=== PATIENT | female | born 1945 | race Native Hawaiian/Other Pacific Islander ===

== ENCOUNTER 2016-10-28 13:10 | Inpatient (IN) | payer MEDICARE, OTHER ==
[2016-10-28 13:10] VITALS: BMI 28.6
--- NOTE | 2016-10-28 13:38 | C.PDOC ---
History Of Present Illness Patient is a 70 year old female with PMH DM, HTN and hypercholesterolemia who presents to the ED with a complaint of pain to the right thigh and leg since tripping and falling 2 days ago at home. Daughter at bedside was not aware and brought her in today. The patient has not been able to walk without pain. Patient denies any fever or chills. Time Seen by Provider: 10/28/16 13:29 Chief Complaint (Nursing): Lower Extremity Problem/Injury History Per: Family History/Exam Limitations: language barrier Onset/Duration Of Symptoms: Days (2 days ago. ) Current Symptoms Are (Timing): Still Present Recent travel outside of the [place]: No Past Medical History Reviewed: Historical Data, Nursing Documentation, Vital Signs Vital Signs: Last Vital Signs Temp 97.9 F 10/28/16 14:30 Pulse 75 10/28/16 14:30 Resp 18 10/28/16 14:30 BP 170/98 H 10/28/16 14:30 Pulse Ox 96 10/28/16 15:33 - Medical History PMH: HTN, Hypercholesterolemia - [facility] Procedures ANGIOPLASTY OF OTHER NON-CORONARY VESSEL(S) (07/09/14) ATHERECTOMY OF OTHER NON-CORONARY VESSEL(S) (07/09/14) CONTRAST AORTOGRAM (07/09/14) CONTRAST ARTERIOGRAM-LEG (07/09/14) PROCEDURE ON SINGLE VESSEL (07/09/14) Family History: States: No Known Family Hx - Social History Hx Alcohol Use: No Hx Substance Use: No Review Of Systems Constitutional: Negative for: Fever, Chills Cardiovascular: Negative for: Chest Pain Respiratory: Negative for: Shortness of Breath Gastrointestinal: Negative for: Abdominal Pain Genitourinary: Negative for: Incontinence Musculoskeletal: Positive for: Leg Pain (right). Negative for: Back Pain Neurological: Negative for: Headache Physical Exam - Physical Exam Appears: Non-toxic, No Acute Distress Skin: Normal Color, Warm, Dry, Ecchymosis (ecchymosis to R anterior medial thigh. ) Head: Atraumatic, Normacephalic Eye(s): bilateral: Normal Inspection, EOMI Nose: Normal Oral Mucosa: Moist Neck: Normal ROM Chest: Symmetrical Cardiovascular: Rhythm Regular, No Murmur Respiratory: Normal Breath Sounds, No Wheezing Back: Normal Inspection, No Vertebral Tenderness Extremity: No Normal ROM (unable to move right leg secondary to pain), Tenderness (right anterior and medial thigh, hip tender, tib/fib tender. patient grimace with palpation to whole leg), No Deformity, No Swelling Pulses: Left Dorsalis Pedis: Normal, Right Dorsalis Pedis: Normal Neurological/Psych: Oriented x3, Normal Speech, Other (no focal deficits. ) Gait: Unable To Assess ED Course And Treatment - Laboratory Results Result Diagrams: 10/28/16 14:51 10/28/16 14:51 Lab Interpretation: No Acute Changes ECG: Interpreted By Me, Viewed By Me ECG Rhythm: Sinus Rhythm Rate From EC O2 Sat by Pulse Oximetry: 96 (Room air) Pulse Ox Interpretation: Normal - Other Rad Femur/Tibia/Fibula XR X-Ray: Interpreted by Me, Viewed By Me Interpretation: Intertrochanteric fracture of the right proximal femur. - Physician Consult Information Time Consulting Physician Contacted: 14:33 Physician Contacted: Johny Osborne III Outcome Of Conversation: admission Monday 10/30. Medical Decision Making Medical Decision Making: Impression: leg pain s.p fall Plan: Femur/Tibia/Fibula XRay ordered, blood work, CT hip, EKG, and UA ordered; Morphine and IV fluids administered. Progress: Xray reviewed by me showing fracture to proximal femoral neck. Radiology reports Intertrochanteric fracture of the right proximal femur. [address] Osborne who wants CT scan and pre-op labs, will take to OR on Monday 10/[address] Andrae De Santiago and discussed case will come to ED and place orders for admission. Disposition - Disposition Disposition: HOSPITALIZED Disposition Time: 15:11 Condition: STABLE - POA Present On Arrival: None - Clinical Impression Clinical Impression: Hip fracture, right - Scribe Statement The provider has reviewed the documentation as recorded by the Scribe Padmaja Barros All medical record entries made by the Scribe were at my direction and personally dictated by me. I have reviewed the chart and agree that the record accurately reflects my personal performance of the history, physical exam, medical decision making, and the department course for this patient. I have also personally directed, reviewed, and agree with the discharge instructions and disposition. Decision To Admit - Pt Status Changed To: Hospital Disposition Of: Inpatient - Admit Certification Admit to Inpatient:: After my assessment, the patient will require hospitalization for at least two midnights. This is because of the severity of symptoms shown, intensity of services needed, and/or the medical risk in this patient being treated as an outpatient. - InPatient: Physician Admission Certification: I certify that this patient requires 2 or more midnights of care for the following reason:: Patient with acute hip fracture, unable to ambulate, needs ortho consult and surgical intervention - . Bed Request Type: Regular Admitting Physician: Avni De Santiago Patient Diagnosis: Hip fracture, right
[2016-10-28] MEDS ORDERED: Sodium Chloride 0.9% 1,000 ML IV SCH (14:30)
[2016-10-28] MEDS ORDERED: Sodium Chloride 0.9% 1,000 ML ONE (14:52)
--- NOTE | 2016-10-28 14:55 | RAD ---
Right femur four views History: Trip and fall. Comparison: None available. Findings: Transverse oblique lucency through the base of the right proximal femur in the intertrochanteric region suggestive for a mildly displaced intertrochanteric fracture. Severe degenerative changes at the right hip joint space with subchondral sclerosis and joint space narrowing. Vascular calcifications. Moderate degenerative changes at the right knee joint space with subchondral sclerosis. Mild patellofemoral compartment joint space narrowing with subchondral sclerosis. Enthesopathic change at the superior bony patella. Vascular calcifications. Impression: Intertrochanteric fracture of the right proximal femur.
--- NOTE | 2016-10-28 14:56 | RAD ---
Right tibia and fibula two views History: Injury. Comparison: None available. Findings: Moderate degenerative changes with joint space narrowing at the femorotibial joint space. No evidence of acute displaced fracture or dislocation of the visualized tibia and fibula. Vascular calcifications. Enthesopathic change at the superior bony patella. Prominent narrowing at the tibiotalar joint space with subchondral sclerosis. Patchy osteopenia particularly of the fibula. Impression: Degenerative changes. If pain persists, consider MRI.
--- NOTE | 2016-10-28 14:58 | RAD ---
Chest x-ray single frontal view History: Fall. Comparison: None available. Findings: Biapical pleural thickening with upper lobe granulomatous changes. Mild venous congestion. Heart size within normal limits. Calcification at the aortic knob. Degenerative changes in the spine with paravertebral osteophytes. Degenerative changes in the bilateral shoulders with prominent joint space narrowing. Mild productive change at the left proximal humerus. Correlation. Impression : Biapical pleural thickening with upper lobe granulomatous changes. Mild venous congestion. Heart size within normal limits. Calcification at the aortic knob. Degenerative changes in the spine with paravertebral osteophytes. Degenerative changes in the bilateral shoulders with prominent joint space narrowing. Mild productive change at the left proximal humerus. Correlation.
[2016-10-28 15:02] LABS: BASO # 0.1 K/uL (0.0-0.2); BASO % 0.6 % (0.0-2.0); EOS # 0.2 K/uL (0.0-0.7); EOS % 1.7 % (0.0-4.0); HEMATOCRIT 41.2 % (34.0-47.0); LYMPH # 1.9 K/uL (1.0-4.3); MEAN CELL VOLUME 90.3 fL (81.0-99.0); MEAN CORPUSCULAR HEMOGLOBIN 30.6 pg (27.0-31.0); MEAN CORPUSCULAR HGB CONC 33.9 g/dL (33.0-37.0); MEAN PLATELET VOLUME 9.9 fL (7.2-11.7); MONO # 0.8 K/uL (0.0-0.8); MONO % 7.6 % (0.0-10.0); RED CELL DISTRIBUTION WIDTH 12.8 % (11.5-14.5); WHITE BLOOD COUNT 10.2 K/uL (4.8-10.8)
--- NOTE | 2016-10-28 15:04 | CP.PCM.HP ---
History of Present Illness - History of Present Illness History of Present Illness: CC: "I fell" 70 yea old [place] female with PMHx of DM, HTN, high cholesterol presents after fall at home last night. Patient fell last night around 7:30pm last night. She was on the phone with her daughter when she fell on a step. Patient was able to get up and has since ambulated with a lot of pain. Pain on arrival was reportedly 10 out of 10. Now 8 out 10 after pain medications given in the ED. Patient denies LOC, hitting her head, dizziness. No numbness or tingling. She denies palpitations, headache, SOB. Admits to similar mechanical fall in January 2016. However, she had not fractures that time. Patient reports chest pain that is "chronic". As per daughters at bedside, patient follows with [facility] Dr. Clark as outpatient. PMHx: DM2, HTN, high cholesterol, CAD? Medications: Plavix 75 mg PO daily, Metformin 500 mg PO BID, Crestor 40 mg PO HS , Ramipril 5 mg PO daily, Invokana 300 mg PO daily (confirmed with patient's pharmacy: [facility] [address] in [place]). Allergies: none Family Hx: Mother and Father both with [place] in their 70's. Surgry Hx: none Social Hx: admits to smoking 1 cigaret per day for "years", quit 1 year ago. Denies alcohol and illicit drug use. PMD: Dr. Epperson Cardio: Dr. Clark Health Proxy:daughter Stacey Ospina [phone]. Present on Admission - Present on Admission Any Indicators Present on Admission: No Review of Systems - Constitutional Constitutional: absent: Chills, Fever - EENT Eyes: absent: Blurred Vision, Change in Vision, Sees Flashes Ears: absent: Tinnitus, Dizziness - Cardiovascular Cardiovascular: absent: Chest Pain, Dyspnea - Respiratory Respiratory: absent: Cough, Dyspnea - Gastrointestinal Gastrointestinal: absent: Abdominal Pain, Constipation, Diarrhea, Nausea, Vomiting - Genitourinary Genitourinary: absent: Difficulty Urinating, Dysuria - Musculoskeletal Musculoskeletal: Abnormal Gait (pain with ambulation). absent: Back Pain, Numbness, Tingling Additional comments: +right hip pain - Neurological Neurological: absent: Disequilibrium, Dizziness, Numbness, Lack of Coordination , Tingling, Weakness - Psychiatric Psychiatric: absent: Anxiety - Endocrine Endocrine: absent: Fatigue, Palpitations - Hematologic/Lymphatic Hematologic: absent: Easy Bleeding, Easy Bruising Past Patient History - Past Social History Smoking Status: Former Smoker - CARDIAC Hx Hypercholesterolemia: Yes Hx Hypertension: Yes - NEUROLOGICAL Hx Paralysis: No - ENDOCRINE/METABOLIC Hx Diabetes Mellitus Type 2: Yes - HEMATOLOGICAL/ONCOLOGICAL Hx Blood Transfusions: No Hx Blood Transfusion Reaction: No - MUSCULOSKELETAL/RHEUMATOLOGICAL Hx Musculoskeletal Disorders: Yes Hx Falls: Yes - PSYCHIATRIC Hx Substance Use: No - SURGICAL HISTORY Hx Surgeries: Yes - ANESTHESIA Hx Anesthesia: No Meds Allergies/Adverse Reactions: Allergies Allergy/AdvReac Type Severity Reaction Status Date / Time No Known Allergies Allergy Verified 10/28/16 13:16 Physical Exam - Constitutional Appears: No Acute Distress - Head Exam Head Exam: ATRAUMATIC, NORMAL INSPECTION, NORMOCEPHALIC - Eye Exam Eye Exam: EOMI, Normal appearance Pupil Exam: NORMAL ACCOMODATION, PERRL - ENT Exam ENT Exam: Mucous Membranes Moist, Normal Exam - Neck Exam Neck exam: Positive for: Full Rom, Normal Inspection - Respiratory Exam Respiratory Exam: Clear to Auscultation Bilateral, NORMAL BREATHING PATTERN - Cardiovascular Exam Cardiovascular Exam: REGULAR RHYTHM, +S1, +S2 - GI/Abdominal Exam GI & Abdominal Exam: Normal Bowel Sounds, Soft. absent: Distended, Tenderness - Extremities Exam Extremities exam: Positive for: normal inspection, tenderness (right hip down to right outer leg ). Negative for: full ROM - Back Exam Back exam: NORMAL INSPECTION - Neurological Exam Neurological exam: Alert, Oriented x3 - Psychiatric Exam Psychiatric exam: Normal Affect, Normal Mood - Skin Skin Exam: Dry, Normal Color, Warm Results - Vital Signs Recent Vital Signs: Last Vital Signs Temp 97.9 F 10/28/16 14:30 Pulse 75 10/28/16 14:30 Resp 18 10/28/16 14:30 BP 170/98 H 10/28/16 14:30 Pulse Ox 96 10/28/16 14:51 - Labs Result Diagrams: 10/28/16 14:51 10/28/16 14:51 Assessment & Plan (1) Hip fracture, right Assessment and Plan: Ortho consult placed- Dr. Osborne- help appreciated. Surgery planning Sunday10/30/16. NPO after midnight on 10/29/16 into 10/30/16. Patient will need cardiac clearance prior to surgery * Morphine 2 mg IVP Q4H PRN for moderate pain * Morphine 4 mg IVP Q4H PRN for severe pain Imaging: Hip CT 10/28/16 shows Intertrochanteric fracture seen through the right proximal femur at the base of the right femoral neck. Distraction at the fracture site. Additional fracture deformity through base of the right greater trochanter with comminution at that level. Heterotopic bone formation at the level of the greater trochanter. Tib/Fib Xray R 10/28/16 shows no evidence of acute displaced fracture or dislocation of the visualized tibia and fibula. Status: Acute (2) Status post fall Assessment and Plan: As per patient and daughter, patient did not hit her head. No evidence of head trauma on physical exam. No CT head at this time. A/P for right hip fractures as above. Status: Acute (3) Chest pain Assessment and Plan: Patient with unclear cardiac history. Patient takes Plavic 75 mg PO daily and Crestor 40 mg PO daily at home. EKG on admission shows NSR 72 bpm. ENOCH negative X1. F/U ENOCH Q6H X2 F/U EKG Q6H X2. * Crestor 40 mg PO HS started * Hold Plavix in anticipation of planned surgery * Morphine IVP Q4H PRN for pain Oxide Furnace Tender Dr. Valladares consulted for cardiac clearance- help appreciated f/u 2D ECHO f/u Hgb A1C,TSH, FLP in the AM Status: Acute (4) Renal insufficiency Assessment and Plan: BUN 24, Cr 0.5. GFR>60. Patient given IVF in the ED. BP became elevated. Will hold fluids for now given elevated BP. Nursing communication placed to encourage PO intake. Will restart home dose of Raghavendra inhibitor as patient's Cr is not above 1.6. f/u CMP in the AM Status: Acute (5) HTN (hypertension) Assessment and Plan: Will restart home dose of Raghavendra inhibitor as patient's Cr is not above 1.6. Ramipril not on formulary. * Vasotec 10 mg PO daily Monitor BP and add medications as needed. Status: Acute (6) Diabetes Assessment and Plan: Random glucose 148. * Start low dose insulin sliding scale * Hold home med Metformin 500mg PO daily for now * Hold home med Invokana 300 mg PO daily for now Accuchecks ACHS Consistent Carb/Heart Healthy Diet f/u Hgb A1C in the AM Status: Acute (7) Prophylactic measure Assessment and Plan: Heparin 5000 SC Q8H SCD left LE Pepcid 20 mg PO BID Bed rest for now with fall risk precautions Status: Acute
[2016-10-28 15:10] LABS: CHLORIDE 101 mmol/L (98-107)
[2016-10-28 15:11] LABS: POTASSIUM 3.8 mmol/L (3.6-5.2); SODIUM 141 mmol/L (132-148)
[2016-10-28 15:13] LABS: ALB/GLOB RATIO 1.2 (1.0-2.1); ALKALINE PHOSPHATASE 174 U/L (38-126); AST/SGOT 18 U/L (14-36); BILIRUBIN,TOTAL 0.9 mg/dL (0.2-1.3); BLOOD UREA NITROGEN 24 mg/dL (7-17); CARBON DIOXIDE 29 mmol/L (22-30); GFR AFRICAN-AMERICAN > 60; GLUCOSE,RANDOM 148 mg/dL (65-105); TOTAL PROTEIN 7.8 g/dL (6.3-8.3)
[2016-10-28 15:14] LABS: ALT/SGPT 18 U/L (9-52); CALCIUM 9.3 mg/dl (8.6-10.4)
[2016-10-28 15:15] LABS: INR 1.2
--- NOTE | 2016-10-28 15:36 | CT ---
CT right hip History: Fracture. Comparison: None available. Technique: Multiple contiguous axial images were performed through the right hip without the use of intravenous contrast. Subsequently, sagittal and coronal reformatted images were obtained. Findings: Intertrochanteric fracture seen through the right proximal femur at the base of the right femoral neck. Distraction at the fracture site. Additional fracture deformity through base of the right greater trochanter with comminution at that level. Heterotopic bone formation at the level of the greater trochanter. Femoral head appears located. Moderate degenerative changes of the right hip joint space with subchondral sclerosis and osteophytosis. Moderate right hip joint effusion. Sclerosis at the right SI joint space. Productive change off the right iliac crest laterally. Osteitis pubis. Calcified fibroid uterus. Distended urinary bladder. Fatty atrophy of the right-sided gluteus and posterior right thigh musculature. Impression: Intertrochanteric fracture through the right proximal femur as described above. Additional fracture deformity within the adjacent right greater trochanter.
[2016-10-28 16:05] LABS: RBC URINE < 1 /hpf (0-3); URINE BILIRUBIN NEGATIVE (NEGATIVE); URINE BLOOD NEGATIVE (NEGATIVE); URINE COLOR Straw (YELLOW); URINE GLUCOSE (UA) 3+ mg/dL (Normal); URINE KETONE NEGATIVE (NEGATIVE); URINE LEUKOCYTE ESTERASE NEG Leu/uL (Negative); URINE PROTEIN NEGATIVE (NEGATIVE); URINE UROBILINOGEN NORMAL mg/dL (0.2-1.0); WBC URINE < 1 /hpf (0-5)
[2016-10-28] MEDS: (Novolin R) Insulin Human Regular 100 units/ml vial SC SCH ×2 (18:54→21:41)
[2016-10-29 06:11] LABS: BASO # 0.1 K/uL (0.0-0.2); BASO % 0.8 % (0.0-2.0); EOS # 0.2 K/uL (0.0-0.7); EOS % 2.6 % (0.0-4.0); HEMATOCRIT 40.1 % (34.0-47.0); LYMPH # 1.8 K/uL (1.0-4.3); LYMPH % 26.7 % (20.0-40.0); MEAN CELL VOLUME 90.6 fL (81.0-99.0); MEAN CORPUSCULAR HEMOGLOBIN 30.5 pg (27.0-31.0); MEAN CORPUSCULAR HGB CONC 33.7 g/dL (33.0-37.0); MEAN PLATELET VOLUME 9.7 fL (7.2-11.7); MONO # 0.5 K/uL (0.0-0.8); MONO % 7.5 % (0.0-10.0); NRBC % 0.1 % (0.0-2.0); RED CELL DISTRIBUTION WIDTH 12.6 % (11.5-14.5); WHITE BLOOD COUNT 6.7 K/uL (4.8-10.8)
[2016-10-29 06:30] LABS: ALB/GLOB RATIO 1.2 (1.0-2.1); ALKALINE PHOSPHATASE 152 U/L (38-126); ALT/SGPT 14 U/L (9-52); AST/SGOT 15 U/L (14-36); BLOOD UREA NITROGEN 19 mg/dL (7-17); CALCIUM 9.1 mg/dl (8.6-10.4); CARBON DIOXIDE 27 mmol/L (22-30); CHLORIDE 102 mmol/L (98-107); CHOLESTEROL 158 mg/dL (0-199); GFR AFRICAN-AMERICAN > 60; GLUCOSE,RANDOM 124 mg/dL (65-105); MAGNESIUM 1.8 mg/dL (1.6-2.3); PHOSPHOROUS 3.8 mg/dL (2.5-4.5); POTASSIUM 3.8 mmol/L (3.6-5.2); SODIUM 140 mmol/L (132-148); TOTAL PROTEIN 6.6 g/dL (6.3-8.3)
[2016-10-29 06:52] LABS: THYROID STIMULATING HORMONE 0.44 mIU/L (0.46-4.68)
[2016-10-29] MEDS: (Novolin R) Insulin Human Regular 100 units/ml vial SC SCH ×3 (07:30→21:53)
[2016-10-29] MEDS: Morphine 4 MG/ML VIAL IVP PRN ×2 (09:49→18:21)
--- NOTE | 2016-10-29 10:01 | CP.PCM.PN ---
<Amanda Zarate - Last Filed: 10/29/16 09:56> Subjective - Date & Time of Evaluation Date of Evaluation: 10/29/16 Time of Evaluation: 08:00 - Subjective Subjective: PGY 3 Medicine Progress Note- Dr. Felisha De Santiago's Service: Patient seen and examined at bedside this AM. Patient reports pain this AM. She reports no pain medication since last night. She denies fevers, or chills. She has been able to use the bathroom without difficulty. No acute event overnight. Objective - Vital Signs/Intake and Output Vital Signs (last 24 hours): Temp Pulse Resp BP Pulse Ox 98.0 F 68 20 139/79 97 10/29/16 07:20 10/29/16 07:20 10/29/16 07:20 10/29/16 09:49 10/29/16 07:20 - Medications Medications: Current Medications Enalapril Maleate (Vasotec) 10 mg PO DAILY [facility] Last Admin: 10/29/16 09:49 Dose: 10 mg Famotidine (Pepcid) 20 mg PO BID [facility] Last Admin: 10/29/16 09:49 Dose: 20 mg Heparin Sodium (Porcine) (Heparin) 5,000 units SC Q8 [facility] Stop: 10/29/16 22:00 Last Admin: 10/29/16 06:03 Dose: 5,000 units Influenza Virus Vaccine (Afluria) 45 mcg IM .ONCE ONE Stop: 11/01/16 10:01 Insulin Human Regular (Novolin R) 0 unit SC ACHS [facility] PRN Reason: Protocol Last Admin: 10/29/16 07:30 Dose: Not Given Morphine Sulfate (Morphine) 2 mg IVP Q4H PRN PRN Reason: Pain, moderate (4-7) Last Admin: 10/29/16 05:47 Dose: 2 mg Morphine Sulfate (Morphine) 4 mg IVP Q4 PRN PRN Reason: Pain, severe (8-10) Last Admin: 10/29/16 09:49 Dose: 4 mg Rosuvastatin Calcium (Crestor) 40 mg PO HS [facility] Last Admin: 10/28/16 21:10 Dose: 40 mg - Labs Labs: 10/29/16 06:06 10/29/16 06:06 PT 13.1 SECONDS (9.7-12.2) H 10/28/16 14:51 INR 1.2 10/28/16 14:51 APTT 34 SECONDS (21-34) 10/28/16 14:51 - Constitutional Appears: No Acute Distress - Head Exam Head Exam: NORMAL INSPECTION, NORMOCEPHALIC - Eye Exam Eye Exam: EOMI - ENT Exam ENT Exam: Mucous Membranes Moist, Normal Exam - Respiratory Exam Respiratory Exam: Clear to Ausculation Bilateral, NORMAL BREATHING PATTERN - Cardiovascular Exam Cardiovascular Exam: REGULAR RHYTHM, +S1, +S2 - GI/Abdominal Exam GI & Abdominal Exam: Soft. absent: Distended, Tenderness - Extremities Exam Extremities Exam: Normal Inspection, Tenderness (over right hip and outer thigh) . absent: Full ROM, Pedal Edema - Neurological Exam Neurological Exam: Alert, Awake, Oriented x3 - Psychiatric Exam Psychiatric exam: Normal Affect, Normal Mood - Skin Skin Exam: Dry, Normal Color, Warm Assessment and Plan - Assessment and Plan (Free Text) Assessment: (1) Hip fracture, right Assessment and Plan: Ortho consult placed- Dr. Osborne- help appreciated. Surgery planning Sunday10/30/16. NPO after midnight on 10/29/16 into 10/30/16. Patient will need cardiac clearance prior to surgery * Morphine 2 mg IVP Q4H PRN for moderate pain * Morphine 4 mg IVP Q4H PRN for severe pain Imaging: Hip CT 10/28/16 shows Intertrochanteric fracture seen through the right proximal femur at the base of the right femoral neck. Distraction at the fracture site. Additional fracture deformity through base of the right greater trochanter with comminution at that level. Heterotopic bone formation at the level of the greater trochanter. Tib/Fib Xray R 10/28/16 shows no evidence of acute displaced fracture or dislocation of the visualized tibia and fibula. Status: Acute (2) Status post fall Assessment and Plan: As per patient and daughter, patient did not hit her head. No evidence of head trauma on physical exam. No CT head at this time. A/P for right hip fractures as above. Status: Acute (3) Chest pain Assessment and Plan: Resolved. Patient with unclear cardiac history. Patient takes Plavix 75 mg PO daily and Crestor 40 mg PO daily at home. EKG on admission shows NSR 72 bpm. ENOCH negative X3. * Crestor 40 mg PO HS started * Hold Plavix in anticipation of planned surgery * Morphine IVP Q4H PRN for pain Building Maintenance Technician Dr. Valladares consulted for cardiac clearance- help appreciated FLP within normal limits TSH low. Will recheck thyroid studies in the AM. f/u 2D ECHO f/u Hgb A1C Status: Acute (4) Renal insufficiency Assessment and Plan: BUN 19, Cr 0.5 this AM. GFR>60. Patient given IVF in the ED. BP became elevated. Will hold fluids for now given elevated BP. Nursing communication placed to encourage PO intake. Will restart home dose of Raghavendra inhibitor as patient's Cr is not above 1.6. f/u CMP in the AM Status: Acute (5) HTN (hypertension) Assessment and Plan: Will restart home dose of Raghavendra inhibitor as patient's Cr is not above 1.6. Ramipril not on formulary. * Vasotec 10 mg PO daily Monitor BP and add medications as needed. Status: Acute (6) Diabetes Assessment and Plan: Random glucose 148. * Start low dose insulin sliding scale * Hold home med Metformin 500mg PO daily for now * Hold home med Invokana 300 mg PO daily for now Accuchecks ACHS Consistent Carb/Heart Healthy Diet f/u Hgb A1C in the AM Status: Acute (7) PVD Assessment and Plan: Patient had balloon angioplasty of right SFA with Dr. Coto in 2014. Patient takes Plavix 75 mg PO daily and Crestor 40 mg PO daily at home. Prophylactic measure Assessment and Plan: Heparin 5000 SC Q8H SCD left LE Pepcid 20 mg PO BID Bed rest for now with fall risk precautions Status: Acute <Avni De Santiago - Last Filed: 10/29/16 21:10> Objective - Vital Signs/Intake and Output Vital Signs (last 24 hours): Temp Pulse Resp BP Pulse Ox 98 F 72 20 122/68 96 10/29/16 16:43 10/29/16 16:43 10/29/16 16:43 10/29/16 16:43 10/29/16 16:43 - Medications Medications: Current Medications Enalapril Maleate (Vasotec) 10 mg PO DAILY [facility] Last Admin: 10/29/16 09:49 Dose: 10 mg Famotidine (Pepcid) 20 mg PO BID [facility] Last Admin: 10/29/16 18:18 Dose: 20 mg Heparin Sodium (Porcine) (Heparin) 5,000 units SC Q8 [facility] Stop: 10/29/16 22:00 Last Admin: 10/29/16 06:03 Dose: 5,000 units Influenza Virus Vaccine (Afluria) 45 mcg IM .ONCE ONE Stop: 11/01/16 10:01 Insulin Human Regular (Novolin R) 0 unit SC ACHS [facility] PRN Reason: Protocol Last Admin: 10/29/16 17:30 Dose: 1 unit Morphine Sulfate (Morphine) 2 mg IVP Q4H PRN PRN Reason: Pain, moderate (4-7) Last Admin: 10/29/16 05:47 Dose: 2 mg Morphine Sulfate (Morphine) 4 mg IVP Q4 PRN PRN Reason: Pain, severe (8-10) Last Admin: 10/29/16 18:21 Dose: 4 mg Rosuvastatin Calcium (Crestor) 40 mg PO HS [facility] Last Admin: 10/28/16 21:10 Dose: 40 mg - Labs Labs: 10/29/16 06:06 10/29/16 06:06 PT 13.1 SECONDS (9.7-12.2) H 10/28/16 14:51 INR 1.2 10/28/16 14:51 APTT 34 SECONDS (21-34) 10/28/16 14:51 Attending/Attestation - Attestation I have personally seen and examined this patient.: Yes I have fully participated in the care of the patient.: Yes I have reviewed all pertinent clinical information, including history, physical exam and plan: Yes Notes (Text): 10/29/16 21:09 Patient was seen and examined at 7:45 AM 10/29/16. She is cleared from [facility] for planned surgery with Dr. Osborne's Team on 10/30/16. Avni De Santiago D.O.
--- NOTE | 2016-10-29 12:04 | CP.PCM.CON ---
History of Present Illness - History of Present Illness History of Present Illness: ID: 70 yo female CC: pain deformity and shortening R lower extremity, pain at R hip HPI: 70 yo female presents with r hip pain and inability to ambulate after a fall on SUNDAY pT PRESENTED TO er AT [facility] YESTERDAY. pT STABILIZED/ MEDICAL,CARDIOLOGIC clearance obtained. Informed consent obtained from pt with her daughters in attendance,pros cons risks and benefits of THR discussed. Concept of ORIF discussed. concept of benign neglect discussed. Daughters tell me she had severe and modeaste to seevre DJD R hip prior fall. pt had r hip pain and rstricted ROM prior to her fall, secondary to O/A R hip.. On Xray and CT, pt has evidecne for complete joint space compromise and evidence for severe DJD R hip.. Pt for THR, as per pts insistence, thru her daughters, who were culturally competent translators. pros, cons risks and befits discussed at length No poromises/guarantees Past Patient History - Past Social History Smoking Status: Former Smoker - CARDIAC Hx Hypercholesterolemia: Yes Hx Hypertension: Yes - NEUROLOGICAL Hx Paralysis: No - ENDOCRINE/METABOLIC Hx Diabetes Mellitus Type 2: Yes - HEMATOLOGICAL/ONCOLOGICAL Hx Blood Transfusions: No Hx Blood Transfusion Reaction: No - MUSCULOSKELETAL/RHEUMATOLOGICAL Hx Musculoskeletal Disorders: Yes Hx Falls: Yes - PSYCHIATRIC Hx Substance Use: No - SURGICAL HISTORY Hx Surgeries: Yes - ANESTHESIA Hx Anesthesia: No Meds Allergies/Adverse Reactions: Allergies Allergy/AdvReac Type Severity Reaction Status Date / Time No Known Allergies Allergy Verified 10/28/16 13:16 - Medications Medications: Current Medications Enalapril Maleate (Vasotec) 10 mg PO DAILY [facility] Last Admin: 10/29/16 09:49 Dose: 10 mg Famotidine (Pepcid) 20 mg PO BID [facility] Last Admin: 10/29/16 09:49 Dose: 20 mg Heparin Sodium (Porcine) (Heparin) 5,000 units SC Q8 [facility] Stop: 10/29/16 22:00 Last Admin: 10/29/16 06:03 Dose: 5,000 units Influenza Virus Vaccine (Afluria) 45 mcg IM .ONCE ONE Stop: 11/01/16 10:01 Insulin Human Regular (Novolin R) 0 unit SC ACHS [facility] PRN Reason: Protocol Last Admin: 10/29/16 07:30 Dose: Not Given Morphine Sulfate (Morphine) 2 mg IVP Q4H PRN PRN Reason: Pain, moderate (4-7) Last Admin: 10/29/16 05:47 Dose: 2 mg Morphine Sulfate (Morphine) 4 mg IVP Q4 PRN PRN Reason: Pain, severe (8-10) Last Admin: 10/29/16 09:49 Dose: 4 mg Rosuvastatin Calcium (Crestor) 40 mg PO HS [facility] Last Admin: 10/28/16 21:10 Dose: 40 mg Physical Exam - Additional Findings Additional findings: Exam systemic- wnl Musculoskekltal stance/gait- deferred pt with shortening and ext rotation R lower extremity N/V intact Results - Vital Signs Recent Vital Signs: Last Vital Signs Temp 98.0 F 10/29/16 07:20 Pulse 68 10/29/16 07:20 Resp 20 10/29/16 07:20 BP 139/79 10/29/16 09:49 Pulse Ox 97 10/29/16 07:20 - Labs Result Diagrams: 10/29/16 06:06 10/29/16 06:06 Labs: Laboratory Results - last 24 hr 10/28/16 10/28/16 10/28/16 14:51 14:51 14:51 WBC 10.2 RBC 4.57 Hgb 14.0 Hct 41.2 MCV 90.3 MCH 30.6 MCHC 33.9 RDW 12.8 Plt Count 255 MPV 9.9 Neut % (Auto) 71.1 Lymph % (Auto) 19.0 L [place] % (Auto) 7.6 Eos % (Auto) 1.7 Baso % (Auto) 0.6 Neut # 7.3 H Lymph # 1.9 Mathews # 0.8 Eos # 0.2 Baso # 0.1 PT 13.1 H INR 1.2 APTT 34 Sodium 141 Potassium 3.8 Chloride 101 Carbon Dioxide 29 Anion Gap 15 BUN 24 H Creatinine 0.5 L Est GFR ( Amer) > 60 Est GFR (Non-Af Amer) > 60 POC Glucose (mg/dL) Random Glucose 148 H Calcium 9.3 Phosphorus Magnesium Total Bilirubin 0.9 AST 18 ALT 18 Alkaline Phosphatase 174 H Total Creatine Kinase CK-MB (Mass) Troponin I, Quant Total Protein 7.8 Albumin 4.2 Globulin 3.6 Albumin/Globulin Ratio 1.2 Triglycerides Cholesterol LDL Cholesterol Direct HDL Cholesterol TSH 3rd Generation Urine Color Urine Clarity Urine pH Ur Specific [place] Urine Protein Urine Glucose (UA) Urine Ketones Urine Blood Urine Nitrate Urine Bilirubin Urine Urobilinogen Ur Leukocyte Esterase Urine WBC (Auto) Urine RBC (Auto) Ur Squamous Epith Cells Blood Type Antibody Screen 10/28/16 10/28/16 10/28/16 14:51 15:53 16:28 WBC RBC Hgb Hct MCV MCH MCHC RDW Plt Count MPV Neut % (Auto) Lymph % (Auto) [place] % (Auto) Eos % (Auto) Baso % (Auto) Neut # Lymph # [place] # Eos # Baso # PT INR APTT Sodium Potassium Chloride Carbon Dioxide Anion Gap BUN Creatinine Est GFR ( Amer) Est GFR (Non-Af Amer) POC Glucose (mg/dL) Random Glucose Calcium Phosphorus Magnesium Total Bilirubin AST ALT Alkaline Phosphatase Total Creatine Kinase 31 CK-MB (Mass) < 0.22 Troponin I, Quant < 0.0120 Total Protein Albumin Globulin Albumin/Globulin Ratio Triglycerides Cholesterol LDL Cholesterol Direct HDL Cholesterol TSH 3rd Generation Urine Color Straw Urine Clarity Clear Urine pH 6.0 Ur Specific [place] 1.009 Urine Protein Negative Urine Glucose (UA) 3+ H Urine Ketones Negative Urine Blood Negative Urine Nitrate Negative Urine Bilirubin Negative Urine Urobilinogen Normal Ur Leukocyte Esterase Neg Urine WBC (Auto) < 1 Urine RBC (Auto) < 1 Ur Squamous Epith Cells < 1 Blood Type B POSITIVE Antibody Screen Negative 10/28/16 10/28/16 10/28/16 16:40 20:54 22:18 WBC RBC Hgb Hct MCV MCH MCHC RDW Plt Count MPV Neut % (Auto) Lymph % (Auto) [place] % (Auto) Eos % (Auto) Baso % (Auto) Neut # Lymph # [place] # Eos # Baso # PT INR APTT Sodium Potassium Chloride Carbon Dioxide Anion Gap BUN Creatinine Est GFR ( Amer) Est GFR (Non-Af Amer) POC Glucose (mg/dL) 175 H 144 H Random Glucose Calcium Phosphorus Magnesium Total Bilirubin AST ALT Alkaline Phosphatase Total Creatine Kinase 27 L CK-MB (Mass) < 0.22 Troponin I, Quant < 0.0120 Total Protein Albumin Globulin Albumin/Globulin Ratio Triglycerides Cholesterol LDL Cholesterol Direct HDL Cholesterol TSH 3rd Generation Urine Color Urine Clarity Urine pH Ur Specific [place] Urine Protein Urine Glucose (UA) Urine Ketones Urine Blood Urine Nitrate Urine Bilirubin Urine Urobilinogen Ur Leukocyte Esterase Urine WBC (Auto) Urine RBC (Auto) Ur Squamous Epith Cells Blood Type Antibody Screen 10/29/16 10/29/16 10/29/16 06:06 06:06 06:06 WBC 6.7 RBC 4.43 Hgb 13.5 Hct 40.1 MCV 90.6 MCH 30.5 MCHC 33.7 RDW 12.6 Plt Count 256 MPV 9.7 Neut % (Auto) 62.4 Lymph % (Auto) 26.7 Mathe[place] % (Auto) 7.5 Eos % (Auto) 2.6 Baso % (Auto) 0.8 Neut # 4.2 Lymph # 1.8 [place] # 0.5 Eos # 0.2 Baso # 0.1 PT INR APTT Sodium 140 Potassium 3.8 Chloride 102 Carbon Dioxide 27 Anion Gap 15 BUN 19 H Creatinine 0.5 L Est GFR ( Amer) > 60 Est GFR (Non-Af Amer) > 60 POC Glucose (mg/dL) Random Glucose 124 H Calcium 9.1 Phosphorus 3.8 Magnesium 1.8 Total Bilirubin 1.0 AST 15 ALT 14 Alkaline Phosphatase 152 H Total Creatine Kinase 28 L CK-MB (Mass) < 0.22 Troponin I, Quant < 0.0120 Total Protein 6.6 Albumin 3.5 Globulin 3.1 Albumin/Globulin Ratio 1.2 Triglycerides 102 Cholesterol 158 LDL Cholesterol Direct 112 HDL Cholesterol 37 TSH 3rd Generation 0.44 L Urine Color Urine Clarity Urine pH Ur Specific [place] Urine Protein Urine Glucose (UA) Urine Ketones Urine Blood Urine Nitrate Urine Bilirubin Urine Urobilinogen Ur Leukocyte Esterase Urine WBC (Auto) Urine RBC (Auto) Ur Squamous Epith Cells Blood Type Antibody Screen 10/29/16 10/29/16 11:10 11:11 WBC RBC Hgb Hct MCV MCH MCHC RDW Plt Count MPV Neut % (Auto) Lymph % (Auto) [place] % (Auto) Eos % (Auto) Baso % (Auto) Neut # Lymph # [place] # Eos # Baso # PT INR APTT Sodium Potassium Chloride Carbon Dioxide Anion Gap BUN Creatinine Est GFR ( Amer) Est GFR (Non-Af Amer) POC Glucose (mg/dL) 139 H Random Glucose Calcium Phosphorus Magnesium Total Bilirubin AST ALT Alkaline Phosphatase Total Creatine Kinase 26 L CK-MB (Mass) Troponin I, Quant Total Protein Albumin Globulin Albumin/Globulin Ratio Triglycerides Cholesterol LDL Cholesterol Direct HDL Cholesterol TSH 3rd Generation Urine Color Urine Clarity Urine pH Ur Specific [place] Urine Protein Urine Glucose (UA) Urine Ketones Urine Blood Urine Nitrate Urine Bilirubin Urine Urobilinogen Ur Leukocyte Esterase Urine WBC (Auto) Urine RBC (Auto) Ur Squamous Epith Cells Blood Type Antibody Screen - Impressions Impression: Imaging planar Xrays- reveal displaced basicervical/intertrochanteric fx R hip ( primarily Basicervical- greater trochanter intact) CT exam: confirmatory, and evidences pereexisting O/A - Assessment & Plan - Assessment and Plan (Free Text) Assessment: A- Basicervical fx R hip/ with precedingprimary Osteoarthritis R hip P- to OR for R THR possibility of mechanical failure, infection, thromboembolic dieases, nerve injury, dislocation; secondary or tertiary surgery a possibility- discussed at length with pt and family
--- NOTE | 2016-10-29 12:51 | CP.PCM.CON ---
History of Present Illness - History of Present Illness History of Present Illness: patient seen/examined. chart reviewed. discussed with family in detail. Patient is at intermediate risk for the planned surgery. However, she is currently asymptomatic and not in CHF. No significant valvular stenosis on examination. There is no cardiovscular contrindication to the planned surgery. Recommend post op troponin and EKG. Recommend Hgb >10. Past Patient History - Past Social History Smoking Status: Former Smoker - CARDIAC Hx Hypercholesterolemia: Yes Hx Hypertension: Yes - NEUROLOGICAL Hx Paralysis: No - ENDOCRINE/METABOLIC Hx Diabetes Mellitus Type 2: Yes - HEMATOLOGICAL/ONCOLOGICAL Hx Blood Transfusions: No Hx Blood Transfusion Reaction: No - MUSCULOSKELETAL/RHEUMATOLOGICAL Hx Musculoskeletal Disorders: Yes Hx Falls: Yes - PSYCHIATRIC Hx Substance Use: No - SURGICAL HISTORY Hx Surgeries: Yes - ANESTHESIA Hx Anesthesia: No Meds Allergies/Adverse Reactions: Allergies Allergy/AdvReac Type Severity Reaction Status Date / Time No Known Allergies Allergy Verified 10/28/16 13:16 - Medications Medications: Current Medications Enalapril Maleate (Vasotec) 10 mg PO DAILY [facility] Last Admin: 10/29/16 09:49 Dose: 10 mg Famotidine (Pepcid) 20 mg PO BID [facility] Last Admin: 10/29/16 09:49 Dose: 20 mg Heparin Sodium (Porcine) (Heparin) 5,000 units SC Q8 [facility] Stop: 10/29/16 22:00 Last Admin: 10/29/16 06:03 Dose: 5,000 units Influenza Virus Vaccine (Afluria) 45 mcg IM .ONCE ONE Stop: 11/01/16 10:01 Insulin Human Regular (Novolin R) 0 unit SC ACHS [facility] PRN Reason: Protocol Last Admin: 10/29/16 07:30 Dose: Not Given Morphine Sulfate (Morphine) 2 mg IVP Q4H PRN PRN Reason: Pain, moderate (4-7) Last Admin: 10/29/16 05:47 Dose: 2 mg Morphine Sulfate (Morphine) 4 mg IVP Q4 PRN PRN Reason: Pain, severe (8-10) Last Admin: 10/29/16 09:49 Dose: 4 mg Rosuvastatin Calcium (Crestor) 40 mg PO HS [facility] Last Admin: 10/28/16 21:10 Dose: 40 mg Results - Vital Signs Recent Vital Signs: Last Vital Signs Temp 98.0 F 10/29/16 07:20 Pulse 68 10/29/16 07:20 Resp 20 10/29/16 07:20 BP 139/79 10/29/16 09:49 Pulse Ox 97 10/29/16 07:20 - Labs Result Diagrams: 10/29/16 06:06 10/29/16 06:06 Labs: Laboratory Results - last 24 hr 10/28/16 10/28/16 10/28/16 14:51 14:51 14:51 WBC 10.2 RBC 4.57 Hgb 14.0 Hct 41.2 MCV 90.3 MCH 30.6 MCHC 33.9 RDW 12.8 Plt Count 255 MPV 9.9 Neut % (Auto) 71.1 Lymph % (Auto) 19.0 L [place] % (Auto) 7.6 Eos % (Auto) 1.7 Baso % (Auto) 0.6 Neut # 7.3 H Lymph # 1.9 [place] # 0.8 Eos # 0.2 Baso # 0.1 PT 13.1 H INR 1.2 APTT 34 Sodium 141 Potassium 3.8 Chloride 101 Carbon Dioxide 29 Anion Gap 15 BUN 24 H Creatinine 0.5 L Est GFR ( Amer) > 60 Est GFR (Non-Af Amer) > 60 POC Glucose (mg/dL) Random Glucose 148 H Calcium 9.3 Phosphorus Magnesium Total Bilirubin 0.9 AST 18 ALT 18 Alkaline Phosphatase 174 H Total Creatine Kinase CK-MB (Mass) Troponin I, Quant Total Protein 7.8 Albumin 4.2 Globulin 3.6 Albumin/Globulin Ratio 1.2 Triglycerides Cholesterol LDL Cholesterol Direct HDL Cholesterol TSH 3rd Generation Urine Color Urine Clarity Urine pH Ur Specific [place] Urine Protein Urine Glucose (UA) Urine Ketones Urine Blood Urine Nitrate Urine Bilirubin Urine Urobilinogen Ur Leukocyte Esterase Urine WBC (Auto) Urine RBC (Auto) Ur Squamous Epith Cells Blood Type Antibody Screen 10/28/16 10/28/16 10/28/16 14:51 15:53 16:28 WBC RBC Hgb Hct MCV MCH MCHC RDW Plt Count MPV Neut % (Auto) Lymph % (Auto) [place] % (Auto) Eos % (Auto) Baso % (Auto) Neut # Lymph # [place] # Eos # Baso # PT INR APTT Sodium Potassium Chloride Carbon Dioxide Anion Gap BUN Creatinine Est GFR ( Amer) Est GFR (Non-Af Amer) POC Glucose (mg/dL) Random Glucose Calcium Phosphorus Magnesium Total Bilirubin AST ALT Alkaline Phosphatase Total Creatine Kinase 31 CK-MB (Mass) < 0.22 Troponin I, Quant < 0.0120 Total Protein Albumin Globulin Albumin/Globulin Ratio Triglycerides Cholesterol LDL Cholesterol Direct HDL Cholesterol TSH 3rd Generation Urine Color Straw Urine Clarity Clear Urine pH 6.0 Ur Specific [place] 1.009 Urine Protein Negative Urine Glucose (UA) 3+ H Urine Ketones Negative Urine Blood Negative Urine Nitrate Negative Urine Bilirubin Negative Urine Urobilinogen Normal Ur Leukocyte Esterase Neg Urine WBC (Auto) < 1 Urine RBC (Auto) < 1 Ur Squamous Epith Cells < 1 Blood Type B POSITIVE Antibody Screen Negative 10/28/16 10/28/16 10/28/16 16:40 20:54 22:18 WBC RBC Hgb Hct MCV MCH MCHC RDW Plt Count MPV Neut % (Auto) Lymph % (Auto) [place] % (Auto) Eos % (Auto) Baso % (Auto) Neut # Lymph # [place] # Eos # Baso # PT INR APTT Sodium Potassium Chloride Carbon Dioxide Anion Gap BUN Creatinine Est GFR ( Amer) Est GFR (Non-Af Amer) POC Glucose (mg/dL) 175 H 144 H Random Glucose Calcium Phosphorus Magnesium Total Bilirubin AST ALT Alkaline Phosphatase Total Creatine Kinase 27 L CK-MB (Mass) < 0.22 Troponin I, Quant < 0.0120 Total Protein Albumin Globulin Albumin/Globulin Ratio Triglycerides Cholesterol LDL Cholesterol Direct HDL Cholesterol TSH 3rd Generation Urine Color Urine Clarity Urine pH Ur Specific [place] Urine Protein Urine Glucose (UA) Urine Ketones Urine Blood Urine Nitrate Urine Bilirubin Urine Urobilinogen Ur Leukocyte Esterase Urine WBC (Auto) Urine RBC (Auto) Ur Squamous Epith Cells Blood Type Antibody Screen 10/29/16 10/29/16 10/29/16 06:06 06:06 06:06 WBC 6.7 RBC 4.43 Hgb 13.5 Hct 40.1 MCV 90.6 MCH 30.5 MCHC 33.7 RDW 12.6 Plt Count 256 MPV 9.7 Neut % (Auto) 62.4 Lymph % (Auto) 26.7 [place] % (Auto) 7.5 Eos % (Auto) 2.6 Baso % (Auto) 0.8 Neut # 4.2 Lymph # 1.8 [place] # 0.5 Eos # 0.2 Baso # 0.1 PT INR APTT Sodium 140 Potassium 3.8 Chloride 102 Carbon Dioxide 27 Anion Gap 15 BUN 19 H Creatinine 0.5 L Est GFR ( Amer) > 60 Est GFR (Non-Af Amer) > 60 POC Glucose (mg/dL) Random Glucose 124 H Calcium 9.1 Phosphorus 3.8 Magnesium 1.8 Total Bilirubin 1.0 AST 15 ALT 14 Alkaline Phosphatase 152 H Total Creatine Kinase 28 L CK-MB (Mass) < 0.22 Troponin I, Quant < 0.0120 Total Protein 6.6 Albumin 3.5 Globulin 3.1 Albumin/Globulin Ratio 1.2 Triglycerides 102 Cholesterol 158 LDL Cholesterol Direct 112 HDL Cholesterol 37 TSH 3rd Generation 0.44 L Urine Color Urine Clarity Urine pH Ur Specific [place] Urine Protein Urine Glucose (UA) Urine Ketones Urine Blood Urine Nitrate Urine Bilirubin Urine Urobilinogen Ur Leukocyte Esterase Urine WBC (Auto) Urine RBC (Auto) Ur Squamous Epith Cells Blood Type Antibody Screen 10/29/16 10/29/16 11:10 11:11 WBC RBC Hgb Hct MCV MCH MCHC RDW Plt Count MPV Neut % (Auto) Lymph % (Auto) [place] % (Auto) Eos % (Auto) Baso % (Auto) Neut # Lymph # [place] # Eos # Baso # PT INR APTT Sodium Potassium Chloride Carbon Dioxide Anion Gap BUN Creatinine Est GFR ( Amer) Est GFR (Non-Af Amer) POC Glucose (mg/dL) 139 H Random Glucose Calcium Phosphorus Magnesium Total Bilirubin AST ALT Alkaline Phosphatase Total Creatine Kinase 26 L CK-MB (Mass) < 0.22 Troponin I, Quant < 0.0120 Total Protein Albumin Globulin Albumin/Globulin Ratio Triglycerides Cholesterol LDL Cholesterol Direct HDL Cholesterol TSH 3rd Generation Urine Color Urine Clarity Urine pH Ur Specific [place] Urine Protein Urine Glucose (UA) Urine Ketones Urine Blood Urine Nitrate Urine Bilirubin Urine Urobilinogen Ur Leukocyte Esterase Urine WBC (Auto) Urine RBC (Auto) Ur Squamous Epith Cells Blood Type Antibody Screen
--- NOTE | 2016-10-29 12:52 | CP.PCM.CON ---
Past Patient History - Past Social History Smoking Status: Former Smoker - CARDIAC Hx Hypercholesterolemia: Yes Hx Hypertension: Yes - NEUROLOGICAL Hx Paralysis: No - ENDOCRINE/METABOLIC Hx Diabetes Mellitus Type 2: Yes - HEMATOLOGICAL/ONCOLOGICAL Hx Blood Transfusions: No Hx Blood Transfusion Reaction: No - MUSCULOSKELETAL/RHEUMATOLOGICAL Hx Musculoskeletal Disorders: Yes Hx Falls: Yes - PSYCHIATRIC Hx Substance Use: No - SURGICAL HISTORY Hx Surgeries: Yes - ANESTHESIA Hx Anesthesia: No Meds Allergies/Adverse Reactions: Allergies Allergy/AdvReac Type Severity Reaction Status Date / Time No Known Allergies Allergy Verified 10/28/16 13:16 - Medications Medications: Current Medications Enalapril Maleate (Vasotec) 10 mg PO DAILY [facility] Last Admin: 10/29/16 09:49 Dose: 10 mg Famotidine (Pepcid) 20 mg PO BID [facility] Last Admin: 10/29/16 09:49 Dose: 20 mg Heparin Sodium (Porcine) (Heparin) 5,000 units SC Q8 [facility] Stop: 10/29/16 22:00 Last Admin: 10/29/16 06:03 Dose: 5,000 units Influenza Virus Vaccine (Afluria) 45 mcg IM .ONCE ONE Stop: 11/01/16 10:01 Insulin Human Regular (Novolin R) 0 unit SC ACHS [facility] PRN Reason: Protocol Last Admin: 10/29/16 07:30 Dose: Not Given Morphine Sulfate (Morphine) 2 mg IVP Q4H PRN PRN Reason: Pain, moderate (4-7) Last Admin: 10/29/16 05:47 Dose: 2 mg Morphine Sulfate (Morphine) 4 mg IVP Q4 PRN PRN Reason: Pain, severe (8-10) Last Admin: 10/29/16 09:49 Dose: 4 mg Rosuvastatin Calcium (Crestor) 40 mg PO HS [facility] Last Admin: 10/28/16 21:10 Dose: 40 mg Results - Vital Signs Recent Vital Signs: Last Vital Signs Temp 98.0 F 10/29/16 07:20 Pulse 68 10/29/16 07:20 Resp 20 10/29/16 07:20 BP 139/79 10/29/16 09:49 Pulse Ox 97 10/29/16 07:20 - Labs Result Diagrams: 10/29/16 06:06 10/29/16 06:06 Labs: Laboratory Results - last 24 hr 10/28/16 10/28/16 10/28/16 14:51 14:51 14:51 WBC 10.2 RBC 4.57 Hgb 14.0 Hct 41.2 MCV 90.3 MCH 30.6 MCHC 33.9 RDW 12.8 Plt Count 255 MPV 9.9 Neut % (Auto) 71.1 Lymph % (Auto) 19.0 L [place] % (Auto) 7.6 Eos % (Auto) 1.7 Baso % (Auto) 0.6 Neut # 7.3 H Lymph # 1.9 [place] # 0.8 Eos # 0.2 Baso # 0.1 PT 13.1 H INR 1.2 APTT 34 Sodium 141 Potassium 3.8 Chloride 101 Carbon Dioxide 29 Anion Gap 15 BUN 24 H Creatinine 0.5 L Est GFR ( Amer) > 60 Est GFR (Non-Af Amer) > 60 POC Glucose (mg/dL) Random Glucose 148 H Calcium 9.3 Phosphorus Magnesium Total Bilirubin 0.9 AST 18 ALT 18 Alkaline Phosphatase 174 H Total Creatine Kinase CK-MB (Mass) Troponin I, Quant Total Protein 7.8 Albumin 4.2 Globulin 3.6 Albumin/Globulin Ratio 1.2 Triglycerides Cholesterol LDL Cholesterol Direct HDL Cholesterol TSH 3rd Generation Urine Color Urine Clarity Urine pH Ur Specific [place] Urine Protein Urine Glucose (UA) Urine Ketones Urine Blood Urine Nitrate Urine Bilirubin Urine Urobilinogen Ur Leukocyte Esterase Urine WBC (Auto) Urine RBC (Auto) Ur Squamous Epith Cells Blood Type Antibody Screen 10/28/16 10/28/16 10/28/16 14:51 15:53 16:28 WBC RBC Hgb Hct MCV MCH MCHC RDW Plt Count MPV Neut % (Auto) Lymph % (Auto) [place] % (Auto) Eos % (Auto) Baso % (Auto) Neut # Lymph # [place] # Eos # Baso # PT INR APTT Sodium Potassium Chloride Carbon Dioxide Anion Gap BUN Creatinine Est GFR ( Amer) Est GFR (Non-Af Amer) POC Glucose (mg/dL) Random Glucose Calcium Phosphorus Magnesium Total Bilirubin AST ALT Alkaline Phosphatase Total Creatine Kinase 31 CK-MB (Mass) < 0.22 Troponin I, Quant < 0.0120 Total Protein Albumin Globulin Albumin/Globulin Ratio Triglycerides Cholesterol LDL Cholesterol Direct HDL Cholesterol TSH 3rd Generation Urine Color Straw Urine Clarity Clear Urine pH 6.0 Ur Specific [place] 1.009 Urine Protein Negative Urine Glucose (UA) 3+ H Urine Ketones Negative Urine Blood Negative Urine Nitrate Negative Urine Bilirubin Negative Urine Urobilinogen Normal Ur Leukocyte Esterase Neg Urine WBC (Auto) < 1 Urine RBC (Auto) < 1 Ur Squamous Epith Cells < 1 Blood Type B POSITIVE Antibody Screen Negative 10/28/16 10/28/16 10/28/16 16:40 20:54 22:18 WBC RBC Hgb Hct MCV MCH MCHC RDW Plt Count MPV Neut % (Auto) Lymph % (Auto) [place] % (Auto) Eos % (Auto) Baso % (Auto) Neut # Lymph # [place] # Eos # Baso # PT INR APTT Sodium Potassium Chloride Carbon Dioxide Anion Gap BUN Creatinine Est GFR ( Amer) Est GFR (Non-Af Amer) POC Glucose (mg/dL) 175 H 144 H Random Glucose Calcium Phosphorus Magnesium Total Bilirubin AST ALT Alkaline Phosphatase Total Creatine Kinase 27 L CK-MB (Mass) < 0.22 Troponin I, Quant < 0.0120 Total Protein Albumin Globulin Albumin/Globulin Ratio Triglycerides Cholesterol LDL Cholesterol Direct HDL Cholesterol TSH 3rd Generation Urine Color Urine Clarity Urine pH Ur Specific [place] Urine Protein Urine Glucose (UA) Urine Ketones Urine Blood Urine Nitrate Urine Bilirubin Urine Urobilinogen Ur Leukocyte Esterase Urine WBC (Auto) Urine RBC (Auto) Ur Squamous Epith Cells Blood Type Antibody Screen 10/29/16 10/29/16 10/29/16 06:06 06:06 06:06 WBC 6.7 RBC 4.43 Hgb 13.5 Hct 40.1 MCV 90.6 MCH 30.5 MCHC 33.7 RDW 12.6 Plt Count 256 MPV 9.7 Neut % (Auto) 62.4 Lymph % (Auto) 26.7 [place] % (Auto) 7.5 Eos % (Auto) 2.6 Baso % (Auto) 0.8 Neut # 4.2 Lymph # 1.8 [place] # 0.5 Eos # 0.2 Baso # 0.1 PT INR APTT Sodium 140 Potassium 3.8 Chloride 102 Carbon Dioxide 27 Anion Gap 15 BUN 19 H Creatinine 0.5 L Est GFR ( Amer) > 60 Est GFR (Non-Af Amer) > 60 POC Glucose (mg/dL) Random Glucose 124 H Calcium 9.1 Phosphorus 3.8 Magnesium 1.8 Total Bilirubin 1.0 AST 15 ALT 14 Alkaline Phosphatase 152 H Total Creatine Kinase 28 L CK-MB (Mass) < 0.22 Troponin I, Quant < 0.0120 Total Protein 6.6 Albumin 3.5 Globulin 3.1 Albumin/Globulin Ratio 1.2 Triglycerides 102 Cholesterol 158 LDL Cholesterol Direct 112 HDL Cholesterol 37 TSH 3rd Generation 0.44 L Urine Color Urine Clarity Urine pH Ur Specific [place] Urine Protein Urine Glucose (UA) Urine Ketones Urine Blood Urine Nitrate Urine Bilirubin Urine Urobilinogen Ur Leukocyte Esterase Urine WBC (Auto) Urine RBC (Auto) Ur Squamous Epith Cells Blood Type Antibody Screen 10/29/16 10/29/16 11:10 11:11 WBC RBC Hgb Hct MCV MCH MCHC RDW Plt Count MPV Neut % (Auto) Lymph % (Auto) [place] % (Auto) Eos % (Auto) Baso % (Auto) Neut # Lymph # [place] # Eos # Baso # PT INR APTT Sodium Potassium Chloride Carbon Dioxide Anion Gap BUN Creatinine Est GFR ( Amer) Est GFR (Non-Af Amer) POC Glucose (mg/dL) 139 H Random Glucose Calcium Phosphorus Magnesium Total Bilirubin AST ALT Alkaline Phosphatase Total Creatine Kinase 26 L CK-MB (Mass) < 0.22 Troponin I, Quant < 0.0120 Total Protein Albumin Globulin Albumin/Globulin Ratio Triglycerides Cholesterol LDL Cholesterol Direct HDL Cholesterol TSH 3rd Generation Urine Color Urine Clarity Urine pH Ur Specific [place] Urine Protein Urine Glucose (UA) Urine Ketones Urine Blood Urine Nitrate Urine Bilirubin Urine Urobilinogen Ur Leukocyte Esterase Urine WBC (Auto) Urine RBC (Auto) Ur Squamous Epith Cells Blood Type Antibody Screen
[2016-10-30 07:16] LABS: BASO % 0.3 % (0.0-2.0); EOS # 0.1 K/uL (0.0-0.7); EOS % 1.6 % (0.0-4.0); HEMATOCRIT 38.5 % (34.0-47.0); LYMPH # 1.3 K/uL (1.0-4.3); LYMPH % 16.3 % (20.0-40.0); MEAN CELL VOLUME 90.5 fL (81.0-99.0); MEAN CORPUSCULAR HEMOGLOBIN 30.3 pg (27.0-31.0); MEAN CORPUSCULAR HGB CONC 33.5 g/dL (33.0-37.0); MEAN PLATELET VOLUME 10.2 fL (7.2-11.7); MONO # 0.5 K/uL (0.0-0.8); MONO % 6.9 % (0.0-10.0); RED CELL DISTRIBUTION WIDTH 12.5 % (11.5-14.5); WHITE BLOOD COUNT 7.7 K/uL (4.8-10.8)
[2016-10-30] MEDS: (Novolin R) Insulin Human Regular 100 units/ml vial SC SCH ×5 (07:30→21:34)
[2016-10-30 07:56] LABS: CHLORIDE 103 mmol/L (98-107)
[2016-10-30 07:57] LABS: POTASSIUM 3.6 mmol/L (3.6-5.2); SODIUM 138 mmol/L (132-148)
[2016-10-30 07:59] LABS: ALB/GLOB RATIO 1.1 (1.0-2.1); ALKALINE PHOSPHATASE 155 U/L (38-126); AST/SGOT 16 U/L (14-36); CARBON DIOXIDE 27 mmol/L (22-30); GFR AFRICAN-AMERICAN > 60; TOTAL PROTEIN 6.8 g/dL (6.3-8.3)
[2016-10-30 08:00] LABS: ALT/SGPT 20 U/L (9-52); BLOOD UREA NITROGEN 29 mg/dL (7-17); CALCIUM 8.5 mg/dl (8.6-10.4); GLUCOSE,RANDOM 169 mg/dL (65-105); PHOSPHOROUS 3.5 mg/dL (2.5-4.5)
[2016-10-30 08:01] LABS: MAGNESIUM 1.9 mg/dL (1.6-2.3)
[2016-10-30 08:15] LABS: THYROID STIMULATING HORMONE 0.29 mIU/L (0.46-4.68)
[2016-10-30] MEDS: Piperacill/Tazo 3.375gm in Dex 3.375 GM/50 ML BAG IVPB SCH ×3 (09:06→21:35)
--- NOTE | 2016-10-30 10:39 | CP.PCM.PN ---
Subjective - Date & Time of Evaluation Date of Evaluation: 10/30/16 Time of Evaluation: 10:33 - Subjective Subjective: Patient was scheduled today for THR for right hip basicervical fx/preexisting DJD Labs reviewed. Patient with +urine culture for beta hemolytic strep, started on zosyn today per Medical team. Dr. Osborne discussed case with daughter Stacey multiple times regarding patient. Patient takes plavix at home, but neither patient or daughter are certain when the last time patient took her plavix at home. The medication was held upon admission, but it is possible that patient took medication 10/28 prior to admission, and this would put patient at increased risk of perioperative bleeding. Surgery cancelled today due to UTI and to hold plavix. Will plan for OR 11/01. Continue heparin at this time, can be held after 2pm dose 10/31. Case d/w Dr. Romero Objective - Vital Signs/Intake and Output Vital Signs (last 24 hours): Temp Pulse Resp BP Pulse Ox 98.3 F 72 20 110/58 L 98 10/30/16 04:05 10/30/16 04:05 10/30/16 04:05 10/30/16 04:05 10/30/16 04:05 Intake and Output: 10/30/16 10/30/16 06:59 18:59 Intake Total 240 Balance 240 - Medications Medications: Current Medications Enalapril Maleate (Vasotec) 10 mg PO DAILY [facility] Last Admin: 10/29/16 09:49 Dose: 10 mg Famotidine (Pepcid) 20 mg PO BID [facility] Last Admin: 10/29/16 18:18 Dose: 20 mg Piperacillin Sod/Tazobactam Sod (Zosyn 3.375 Gm Iv Premix) 3.375 gm in 50 mls @ 100 mls/hr IVPB Q6H [facility] Last Admin: 10/30/16 09:06 Dose: 100 mls/hr Influenza Virus Vaccine (Afluria) 45 mcg IM .ONCE ONE Stop: 11/01/16 10:01 Insulin Human Regular (Novolin R) 0 unit SC ACHS [facility] PRN Reason: Protocol Last Admin: 10/29/16 21:53 Dose: Not Given Morphine Sulfate (Morphine) 2 mg IVP Q4H PRN PRN Reason: Pain, moderate (4-7) Last Admin: 10/29/16 05:47 Dose: 2 mg Morphine Sulfate (Morphine) 4 mg IVP Q4 PRN PRN Reason: Pain, severe (8-10) Last Admin: 10/29/16 18:21 Dose: 4 mg Rosuvastatin Calcium (Crestor) 40 mg PO HS [facility] Last Admin: 10/29/16 21:31 Dose: 40 mg - Labs Labs: 10/30/16 06:55 10/30/16 06:55 PT 13.1 SECONDS (9.7-12.2) H 10/28/16 14:51 INR 1.2 10/28/16 14:51 APTT 34 SECONDS (21-34) 10/28/16 14:51 Assessment and Plan (1) Fracture of femoral neck, right Assessment & Plan: plan for THR on 11/01 hold plavix, continue heparin venodynes incentive spirometry d/w Dr. 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
--- NOTE | 2016-10-30 11:35 | CP.PCM.CON ---
History of Present Illness - History of Present Illness History of Present Illness: 70 yea old [place] female presents to after fall at home and is referred for ID eval of UTI prior to sugery > fell at home 3 days ago and admitted 2 days ago with pain and difficulty ambulating Found to have right hip fx which was scheduled for today. because of infection the procedure was cancelled. ID eval requested denies fever chills No painful urination no flank pain PMHx: DM2, HTN, high cholesterol, CAD? Medications: Plavix 75 mg PO daily, Metformin 500 mg PO BID, Crestor 40 mg PO HS , Ramipril 5 mg PO daily, Invokana 300 mg PO daily Allergies: none Family Hx: Mother and Father both with [place] in their 70's. Surgry Hx: none Social Hx: admits to smoking many yrs quit 1 year ago. Review of Systems - Constitutional Constitutional: As Per HPI - EENT Eyes: absent: As Per HPI, Blind Spots, Blurred Vision, Change in Vision, Decreased Night Vision, Diplopia, Discharge, Dry Eye, Exophthalmos, Floaters, Irritation, Itchy Eyes, Loss of Peripheral Vision, Pain, Photophobia, Requires Corrective Lenses, Sees Flashes, Spots in Vision, Tunnel Vision, Other Visual Disturbances, Loss of Vision, Other Ears: absent: As Per HPI, Decreased Hearing, Ear Discharge, Ear Pain, Tinnitus, Abnormal Hearing, Disequilibrium, Dizziness, Other Nose/Mouth/Throat: absent: As Per HPI, Epistaxis, Nasal Congestion, Nasal Discharge, Nasal Obstruction, Nasal Trauma, Nose Pain, Post Nasal Drip, Sinus Pain, Sinus Pressure, Bleeding Gums, Change in Voice, Dental Pain, Dry Mouth, Dysphagia, Halitosis, Hoarsness, Lip Swelling, Mouth Lesions, Mouth Pain, Odynophagia, Sore Throat, Throat Swelling, Tongue Swelling, Facial Pain, Neck Pain, Neck Mass, Other - Breasts Breasts: absent: As Per HPI, Change in Shape, Mass, Pain, Nipple Discharge, Nipple Inversion, Skin Changes, Swelling, Other - Cardiovascular Cardiovascular: absent: As Per HPI, Acrocyanosis, Chest Pain, Chest Pain at Rest , Chest Pain with Activity, Claudication, Diaphoresis, Dyspnea, Dyspnea on Exertion, Edema, Irregular Heart Rhythm, Pain Radiating to Arm/Neck/Jaw, Leg Edema, Leg Ulcers, Lightheadedness, Orthopnea, Palpitations, Paroxysmal Nocturnal Dyspnea, Pedal Edema, Radiating Pain, Rapid Heart Rate, Slow Heart Rate, Syncope, Other - Respiratory Respiratory: absent: As Per HPI, Cough, Dyspnea, Hemoptysis, Dyspnea on Exertion , Wheezing, Snoring, Stridor, Pain on Inspiration, Chest Congestion, Excessive Mucous Production, Change in Mucous Color, Pain with Coughing, Other - Gastrointestinal Gastrointestinal: absent: As Per HPI, Abdominal Pain, Belching, Bloating, Change in Bowel Habits, Change in Stool Character, Coffee Ground Emesis, Constipation, Cramping, Diarrhea, Dyspepsia, Dysphagia, Early Satiety, Excessive Flatus, Fecal Incontinence, Heartburn, Hematemesis, Hematochezia, Loose Stools, Melena, Nausea, Odynophagia, Temesmus, Vomiting, Other - Genitourinary Genitourinary: As Per HPI - Reproductive: Female Reproductive:Female: absent: As Per HPI, Amenorrhea, Amenorrhea/ Control, Currently Menstual, Cycle <21 Days, Cycle >35 Days, Cycle Variable, Menses 1-7 Days, Menses >/= 8 Days, Menses Variable, Cycle > 4 Weeks Between, No Menses for 6 Months, Heavy Menses, Light Menses, Normal Menses, Spotting Between Cycles , S/P Hysterectomy, Menopausal, Post Menopausal, Premenarche, Abnormal Vaginal Bleeding, Dysmenorrhea, Dyspareunia, Genital Lesions, Genital Pruritis, Pelvic Pain, Prolapse Symptoms, Sexual Dysfunction, Vaginal Discharge, Vaginal Dryness , Vaginal Odor, Vaginal Pruritis, Other - Menstruation Menstruation: absent: As Per HPI, Amenorrhea, Amenorrhea/ Control, Currently Menstual, Cycle <21 Days, Cycle >35 Days, Cycle Variable, Menses 1-7 Days, Menses >/= 8 Days, Menses Variable, Cycle > 4 Weeks Between, No Menses for 6 Months, Heavy Menses, Light Menses, Normal Menses, Spotting Between Cycles , S/P Hysterectomy, Menopausal, Post Menopausal, Premenarche, Abnormal Vaginal Bleeding, Dysmenorrhea, Other - Musculoskeletal Musculoskeletal: As Per HPI, Deformity, Limited Range of Motion, Radiating Pain into Limb - Integumentary Integumentary: absent: As Per HPI, Acne, Alopecia, Bleeding Lesions, Change in Hair, Change in Nails, Change in Pigmentation, Changing Lesions, Dry Skin, Erythema, Furuncle, Hirsutism, Lesions, New Lesions, Non-Healing Lesions, Photosensitivity, Pruritus, Rash, Skin Pain, Skin Ulcer, Sores, Striae, Swelling , Unusual Bruising, Wounds, Jaundice, Other - Neurological Neurological: absent: As Per HPI, Abnormal Gait, Abnormal Hearing, Abnormal Movements, Abnormal Speech, Behavioral Changes, Burning Sensations, Confusion, Convulsions, Disequilibrium, Dizziness, Numbness, Focal Weakness, Frequent Falls , Headaches, Lack of Coordination, Loss of Vision, Memory Loss, Paresthesias, Radicular Pain, Restless Legs, Sensory Deficit, Syncope, Tingling, Tremor, Vertigo, Weakness, Other Visual Disturbances, Other - Psychiatric Psychiatric: absent: As Per HPI, Abnormal Sleep Pattern, Anhedonia, Anxiety, Auditory Hallucinations, Behavioral Changes, Change in Appetite, Change in Libido, Confusion, Depression, Difficulty Concentrating, Hallucinations, Homicidal Ideation, Hopelessness, Irritability, Memory Loss, Mood Swings, Panic Attacks, Paranoia, Suicidal Ideation, Visual Hallucinations, Tactile Hallucinations, Other - Endocrine Endocrine: As Per HPI - Hematologic/Lymphatic Hematologic: absent: As Per HPI, Easy Bleeding, Easy Bruising, Lymphadenopathy, Other Past Patient History - Past Social History Smoking Status: Former Smoker - CARDIAC Hx Hypercholesterolemia: Yes Hx Hypertension: Yes - NEUROLOGICAL Hx Paralysis: No - ENDOCRINE/METABOLIC Hx Diabetes Mellitus Type 2: Yes - HEMATOLOGICAL/ONCOLOGICAL Hx Blood Transfusions: No Hx Blood Transfusion Reaction: No - MUSCULOSKELETAL/RHEUMATOLOGICAL Hx Musculoskeletal Disorders: Yes Hx Falls: Yes - PSYCHIATRIC Hx Substance Use: No - SURGICAL HISTORY Hx Surgeries: Yes - ANESTHESIA Hx Anesthesia: No Meds Allergies/Adverse Reactions: Allergies Allergy/AdvReac Type Severity Reaction Status Date / Time No Known Allergies Allergy Verified 10/28/16 13:16 - Medications Medications: Current Medications Enalapril Maleate (Vasotec) 10 mg PO DAILY [facility] Last Admin: 10/29/16 09:49 Dose: 10 mg Famotidine (Pepcid) 20 mg PO BID [facility] Last Admin: 10/29/16 18:18 Dose: 20 mg Heparin Sodium (Porcine) (Heparin) 5,000 units SC Q8 [facility] Stop: 10/31/16 15:00 Piperacillin Sod/Tazobactam Sod (Zosyn 3.375 Gm Iv Premix) 3.375 gm in 50 mls @ 100 mls/hr IVPB Q6H [facility] Last Admin: 10/30/16 09:06 Dose: 100 mls/hr Influenza Virus Vaccine (Afluria) 45 mcg IM .ONCE ONE Stop: 11/01/16 10:01 Insulin Human Regular (Novolin R) 0 unit SC ACHS [facility] PRN Reason: Protocol Last Admin: 10/29/16 21:53 Dose: Not Given Morphine Sulfate (Morphine) 2 mg IVP Q4H PRN PRN Reason: Pain, moderate (4-7) Last Admin: 10/29/16 05:47 Dose: 2 mg Morphine Sulfate (Morphine) 4 mg IVP Q4 PRN PRN Reason: Pain, severe (8-10) Last Admin: 10/29/16 18:21 Dose: 4 mg Rosuvastatin Calcium (Crestor) 40 mg PO HS [facility] Last Admin: 10/29/16 21:31 Dose: 40 mg Physical Exam - Constitutional Appears: Non-toxic, No Acute Distress - Head Exam Head Exam: ATRAUMATIC, NORMAL INSPECTION, NORMOCEPHALIC - Eye Exam Eye Exam: EOMI, PERRL. absent: Scleral icterus - ENT Exam ENT Exam: Mucous Membranes Dry, Normal External Ear Exam - Neck Exam Neck exam: Negative for: Lymphadenopathy - Respiratory Exam Respiratory Exam: Decreased Breath Sounds, Clear to Auscultation Bilateral - Cardiovascular Exam Cardiovascular Exam: REGULAR RHYTHM, +S1, +S2 - GI/Abdominal Exam GI & Abdominal Exam: Diminished Bowel Sounds, Soft. absent: Guarding, Rigid, Tenderness - Rectal Exam Rectal Exam: Deferred - Exam Exam: NORMAL INSPECTION. absent: Bladder Distension - Extremities Exam Extremities exam: Positive for: pedal pulses present. Negative for: calf tenderness, pedal edema, tenderness Additional comments: rotation right hip decresased rom - Back Exam Back exam: absent: CVA tenderness (L), CVA tenderness (R), paraspinal tenderness , rash noted, vertebral tenderness - Neurological Exam Neurological exam: Alert, CN II-XII Intact, Oriented x3, Reflexes Normal - Psychiatric Exam Psychiatric exam: Normal Mood - Skin Skin Exam: Dry Results - Vital Signs Recent Vital Signs: Last Vital Signs Temp 98.3 F 10/30/16 04:05 Pulse 72 10/30/16 04:05 Resp 20 10/30/16 04:05 BP 110/58 L 10/30/16 04:05 Pulse Ox 98 10/30/16 04:05 - Labs Result Diagrams: 10/30/16 06:55 10/30/16 06:55 Labs: Laboratory Results - last 24 hr 10/29/16 10/29/16 10/29/16 06:06 11:11 17:23 WBC RBC Hgb Hct MCV MCH MCHC RDW Plt Count MPV Neut % (Auto) Lymph % (Auto) Ware % (Auto) Eos % (Auto) Baso % (Auto) Neut # Lymph # Ware # Eos # Baso # Sodium Potassium Chloride Carbon Dioxide Anion Gap BUN Creatinine Est GFR ( Amer) Est GFR (Non-Af Amer) POC Glucose (mg/dL) 196 H Random Glucose Hemoglobin A1c 7.5 H Calcium Phosphorus Magnesium Total Bilirubin AST ALT Alkaline Phosphatase Total Creatine Kinase 26 L CK-MB (Mass) < 0.22 Troponin I, Quant < 0.0120 Total Protein Albumin Globulin Albumin/Globulin Ratio Free T4 TSH 3rd Generation Blood Type Antibody Screen 10/29/16 10/30/16 10/30/16 21:10 06:34 06:55 WBC 7.7 RBC 4.26 Hgb 12.9 Hct 38.5 MCV 90.5 MCH 30.3 MCHC 33.5 RDW 12.5 Plt Count 229 MPV 10.2 Neut % (Auto) 74.9 Lymph % (Auto) 16.3 L Ware % (Auto) 6.9 Eos % (Auto) 1.6 Baso % (Auto) 0.3 Neut # 5.8 Lymph # 1.3 Ware # 0.5 Eos # 0.1 Baso # 0.0 Sodium Potassium Chloride Carbon Dioxide Anion Gap BUN Creatinine Est GFR ( Amer) Est GFR (Non-Af Amer) POC Glucose (mg/dL) 186 H 203 H Random Glucose Hemoglobin A1c Calcium Phosphorus Magnesium Total Bilirubin AST ALT Alkaline Phosphatase Total Creatine Kinase CK-MB (Mass) Troponin I, Quant Total Protein Albumin Globulin Albumin/Globulin Ratio Free T4 TSH 3rd Generation Blood Type Antibody Screen 10/30/16 10/30/16 10/30/16 06:55 06:55 09:09 WBC RBC Hgb Hct MCV MCH MCHC RDW Plt Count MPV Neut % (Auto) Lymph % (Auto) Ware % (Auto) Eos % (Auto) Baso % (Auto) Neut # Lymph # Ware # Eos # Baso # Sodium 138 Potassium 3.6 Chloride 103 Carbon Dioxide 27 Anion Gap 13 BUN 29 H Creatinine 0.6 L Est GFR ( Amer) > 60 Est GFR (Non-Af Amer) > 60 POC Glucose (mg/dL) Random Glucose 169 H Hemoglobin A1c Calcium 8.5 L Phosphorus 3.5 Magnesium 1.9 Total Bilirubin 1.0 AST 16 ALT 20 Alkaline Phosphatase 155 H Total Creatine Kinase CK-MB (Mass) Troponin I, Quant Total Protein 6.8 Albumin 3.5 Globulin 3.3 Albumin/Globulin Ratio 1.1 Free T4 1.63 TSH 3rd Generation 0.29 L Blood Type B POSITIVE Antibody Screen Negative Assessment & Plan (1) Diabetes Status: Acute (2) Fracture of femoral neck, right Status: Acute (3) HTN (hypertension) Status: Acute (4) Renal insufficiency Status: Acute (5) Status post fall Status: Acute - Assessment and Plan (Free Text) Assessment: bacteriuria in a 70 yo female with hx DM and recent hip Fx- may be colonized ( grp B strep colonization rates as high as 25 %) would procede with planned surgery and avoid lengthy Butt insertion if possible no need for lengthy course of IV antibiotics
[2016-10-30] MEDS: Morphine 4 MG/ML VIAL IVP PRN (12:29)
[2016-10-30 13:52] LABS: FUNCTIONING PLTS 208 K/uL; PLT BASE COUNT 228 K/uL; PLT(ADP) 20 K/uL
--- NOTE | 2016-10-30 17:28 | CP.PCM.PN ---
<Phoebe Dykes - Last Filed: 10/30/16 17:26> Subjective - Date & Time of Evaluation Date of Evaluation: 10/30/16 Time of Evaluation: 08:30 - Subjective Subjective: Internal Medicine Progress note for Dr. Romero Patient seen and examined at bedside. Malina. Patient was originally scheduled for THR for right hip basicervical fracture, but unable to due to positive UTI for Group B strep agalactieae. Patient and family unable to determine last time Plavix was administered (possibly 10/28). Patient denies any fever, chills, just right hip pain, no urinary issues, no dysuria. Objective - Vital Signs/Intake and Output Vital Signs (last 24 hours): Temp Pulse Resp BP Pulse Ox 97.9 F 69 20 106/58 L 98 10/30/16 15:00 10/30/16 15:00 10/30/16 15:00 10/30/16 15:00 10/30/16 15:00 Intake and Output: 10/30/16 10/30/16 06:59 18:59 Intake Total 240 Balance 240 - Medications Medications: Current Medications Enalapril Maleate (Vasotec) 10 mg PO DAILY [facility] Last Admin: 10/30/16 12:17 Dose: 10 mg Famotidine (Pepcid) 20 mg PO BID [facility] Last Admin: 10/30/16 12:17 Dose: 20 mg Heparin Sodium (Porcine) (Heparin) 5,000 units SC Q8 [facility] Stop: 10/31/16 15:00 Last Admin: 10/30/16 15:07 Dose: 5,000 units Piperacillin Sod/Tazobactam Sod (Zosyn 3.375 Gm Iv Premix) 3.375 gm in 50 mls @ 100 mls/hr IVPB Q6H [facility] Last Admin: 10/30/16 15:07 Dose: 100 mls/hr Influenza Virus Vaccine (Afluria) 45 mcg IM .ONCE ONE Stop: 11/01/16 10:01 Insulin Human Regular (Novolin R) 0 unit SC ACHS [facility] PRN Reason: Protocol Last Admin: 10/30/16 11:55 Dose: Not Given Morphine Sulfate (Morphine) 2 mg IVP Q4H PRN PRN Reason: Pain, moderate (4-7) Last Admin: 10/30/16 16:24 Dose: 2 mg Morphine Sulfate (Morphine) 4 mg IVP Q4 PRN PRN Reason: Pain, severe (8-10) Last Admin: 10/30/16 12:29 Dose: 4 mg Rosuvastatin Calcium (Crestor) 40 mg PO HS [facility] Last Admin: 10/29/16 21:31 Dose: 40 mg - Labs Labs: 10/30/16 06:55 10/30/16 06:55 PT 13.1 SECONDS (9.7-12.2) H 10/28/16 14:51 INR 1.2 10/28/16 14:51 APTT 34 SECONDS (21-34) 10/28/16 14:51 - Constitutional Appears: Non-toxic - Head Exam Head Exam: NORMAL INSPECTION - Eye Exam Eye Exam: EOMI, Normal appearance - ENT Exam ENT Exam: Mucous Membranes Moist - Neck Exam Neck Exam: Full ROM. absent: Tenderness - Respiratory Exam Respiratory Exam: Clear to Ausculation Bilateral, NORMAL BREATHING PATTERN. absent: Accessory Muscle Use, Respiratory Distress - Cardiovascular Exam Cardiovascular Exam: REGULAR RHYTHM. absent: Bradycardia, Tachycardia - GI/Abdominal Exam GI & Abdominal Exam: Soft. absent: Tenderness - Extremities Exam Extremities Exam: Tenderness (right hip area). absent: Full ROM, Pedal Edema Assessment and Plan - Assessment and Plan (Free Text) Assessment: Assessment and Plan: Ortho consult placed- Dr. Osborne Surgery for Wednesday 11/01 Patient will need cardiac clearance prior to surgery * Morphine 2 mg IVP Q4H PRN for moderate pain * Morphine 4 mg IVP Q4H PRN for severe pain Imaging: Hip CT 10/28/16 shows Intertrochanteric fracture seen through the right proximal femur at the base of the right femoral neck. Distraction at the fracture site. Additional fracture deformity through base of the right greater trochanter with comminution at that level. Heterotopic bone formation at the level of the greater trochanter. Tib/Fib Xray R 10/28/16 shows no evidence of acute displaced fracture or dislocation of the visualized tibia and fibula. Status post fall Assessment and Plan: As per patient and daughter, patient did not hit her head. No evidence of head trauma on physical exam. No CT head at this time. A/P for right hip fractures as above. Status: Acute UTI Zosyn 3.375 gm Chest pain Assessment and Plan: Resolved. Patient with unclear cardiac history. Patient takes Plavix 75 mg PO daily and Crestor 40 mg PO daily at home. EKG on admission shows NSR 72 bpm. ENOCH negative X3. * Crestor 40 mg PO HS started * Hold Plavix in anticipation of planned surgery * Morphine IVP Q4H PRN for pain Pin Puller Dr. Valladares consulted for cardiac clearance FLP within normal limits TSH low. Will recheck thyroid studies in the AM. f/u 2D ECHO f/u Hgb A1C Renal insufficiency Assessment and Plan: monitor BUN/Cr f/u CMP in the AM HTN (hypertension) Assessment and Plan: Vasotec 10 mg PO daily Monitor BP Diabetes Assessment and Plan: Start low dose insulin sliding scale Accuchecks ACHS Consistent Carb/Heart Healthy Diet f/u Hgb A1C in the AM PVD Assessment and Plan: Patient had balloon angioplasty of right SFA with Dr. Coto in 2014. Patient takes Plavix 75 mg PO daily and Crestor 40 mg PO daily at home. f/u platelet function per heme Onc consult: Dr. Liao f/u mixing study 10/28 estimated date of last plavix per patient and family, but patient and family unsure Prophylactic measure Assessment and Plan: Heparin 5000 SC Q8H, to be held for procedure on 11/01 SCD left LE Pepcid 20 mg PO BID Bed rest for now with fall risk precautions <Amy Romero V - Last Filed: 10/30/16 19:12> Objective - Vital Signs/Intake and Output Vital Signs (last 24 hours): Temp Pulse Resp BP Pulse Ox 97.9 F 69 20 106/58 L 98 10/30/16 15:00 10/30/16 15:00 10/30/16 15:00 10/30/16 15:00 10/30/16 15:00 Intake and Output: 10/30/16 10/30/16 06:59 18:59 Intake Total 240 Balance 240 - Medications Medications: Current Medications Enalapril Maleate (Vasotec) 10 mg PO DAILY [facility] Last Admin: 10/30/16 12:17 Dose: 10 mg Famotidine (Pepcid) 20 mg PO BID [facility] Last Admin: 10/30/16 12:17 Dose: 20 mg Heparin Sodium (Porcine) (Heparin) 5,000 units SC Q8 [facility] Stop: 10/31/16 15:00 Last Admin: 10/30/16 15:07 Dose: 5,000 units Piperacillin Sod/Tazobactam Sod (Zosyn 3.375 Gm Iv Premix) 3.375 gm in 50 mls @ 100 mls/hr IVPB Q6H [facility] Last Admin: 10/30/16 15:07 Dose: 100 mls/hr Influenza Virus Vaccine (Afluria) 45 mcg IM .ONCE ONE Stop: 11/01/16 10:01 Insulin Human Regular (Novolin R) 0 unit SC ACHS [facility] PRN Reason: Protocol Last Admin: 10/30/16 11:55 Dose: Not Given Morphine Sulfate (Morphine) 2 mg IVP Q4H PRN PRN Reason: Pain, moderate (4-7) Last Admin: 10/30/16 16:24 Dose: 2 mg Morphine Sulfate (Morphine) 4 mg IVP Q4 PRN PRN Reason: Pain, severe (8-10) Last Admin: 10/30/16 12:29 Dose: 4 mg Rosuvastatin Calcium (Crestor) 40 mg PO HS [facility] Last Admin: 10/29/16 21:31 Dose: 40 mg - Labs Labs: 10/30/16 06:55 10/30/16 06:55 PT 13.1 SECONDS (9.7-12.2) H 10/28/16 14:51 INR 1.2 10/28/16 14:51 APTT 34 SECONDS (21-34) 10/28/16 14:51 Attending/Attestation - Attestation I have personally seen and examined this patient.: Yes I have fully participated in the care of the patient.: Yes I have reviewed all pertinent clinical information, including history, physical exam and plan: Yes Notes (Text): Patient seen, examined, and case discussed with day-time resident. Patient seen and examined this morning. Assistance with translation in [employer], provided by SAMMY Pompa. Patient denies headache, denies fever, denies chills, denies chest pain, denies palpitations, denies shortness of breathe, denies urinary frequency, denies dysuria, denies hematuria. Patient reports right hip pain. Discussed with anesthesia, repeat EKG this AM; NSR in light of abnormal thyroid study. Ortho cancelled procedure today in light positive urine culture; recommended for ID consult and concern of bleeding risk in light of recent plavix use for PVD stent. Discussed with Dr. Patel, likely this positive urine is colonizer, not UTI. Patient started on first dose of Zosyn this morning in light of positive urine culture. Patient is not symptomatic of UTI. Patient is ordered for platelet mixing study and platelet function test-->f/u heme onc. Discussed with Ortho PA--Leanne Quick, working with Dr. Osbonre, of cancelled surgery; dvt ppx resumed by ortho. Tenative reschedule for 11/01/16 for hip surgery. Assessment/Plan (1) Hip fracture, right Assessment and Plan: * Orthopedic consult placed- Dr. Osborne- help appreciated. * Cancelled OR in light of positive urine culture 10/30/16 * Anticoagulation per surgery * Surgery management including preoperative, intraoperative, and postoperative per surgery * Cardiology-- Dr. Valladares-->help appreciated * Per cardiology, patient is at intermediate risk for planned surgery. Asymptomatic. Not in CHF. No significant valvular stenos on examination. No cardiovascular contraindication to planned surgery Recommend for post-op troponin and EKG and Hgb>10 * Procedure cancelled in light of positive urine culture 10/30; recommended for ID consult, and concern for bleeding given recent Plavix use * Platelet function test and mixing study ordered on 10/30--> will f/u heme-onc regarding bleeding risk in light of recent Plavix use * Rescheduled for 11/01/16. DVT ppx resumed by orthopedic. * Morphine 2 mg IVP Q4H PRN for moderate pain * Morphine 4 mg IVP Q4H PRN for severe pain * Imaging: Hip CT 10/28/16 shows Intertrochanteric fracture seen through the right proximal femur at the base of the right femoral neck. Distraction at the fracture site. Additional fracture deformity through base of the right greater trochanter with comminution at that level. Heterotopic bone formation at the level of the greater trochanter. * Tib/Fib Xray R 10/28/16 shows no evidence of acute displaced fracture or dislocation of the visualized tibia and fibula. * Status: Acute (2) Status post fall Assessment and Plan: * As per patient and daughter, patient did not hit her head. * No evidence of head trauma on physical exam. * No CT head at this time. * A/P for right hip fractures as above. Status: Acute (3) Chest pain Assessment and Plan: * Asymptomatic * Pin Puller Dr. Valladares consulted for cardiac clearance- help appreciated * Per cardiology, patient is at intermediate risk for planned surgery. Asymptomatic. Not in CHF. No significant valvular stenos on examination. No cardiovascular contraindication to planned surgery Recommend for post-op troponin and EKG and Hgb>10 * Off Plavix since admission-->when patient has surgery; will need to follow-up with ortho to determine when to restart plavix * Pending echocardiogram official read * EKG: NSR X3; ENOCH negative X3. * Crestor 40 mg PO HS started * Hold Plavix in anticipation of planned surgery * Morphine IVP Q4H PRN for pain * f/u 2D ECHO-->pending * Hgb A1C: 7.5 Status: Acute (4) Renal insufficiency Assessment and Plan: * Monitor BUN/Cr * on Admission Patient given IVF in the ED. BP became elevated. * Start gentle IV hydration Status: Acute (5) HTN (hypertension) Assessment and Plan: * Enalapril 10mg PO daily * Monitor BP and add medications as needed. Status: Acute (6) Diabetes Assessment and Plan: Random glucose 148. * Start low dose insulin sliding scale * Hold home med Metformin 500mg PO daily for now * Hold home med Invokana 300 mg PO daily for now Accuchecks ACHS Consistent Carb/Heart Healthy Diet Hgb A1C: 7.5 Status: Acute (7) PVD Assessment and Plan: * Patient had balloon angioplasty of right SFA with Dr. Coto in 2014. * Patient takes Plavix 75 mg PO daily and Crestor 40 mg PO daily at home--> plavix held on admission in light of hip surgery Prophylactic measure Assessment and Plan: * Anticoagulation restarted per orthopedic in light of cancelled procedure today Heparin 5000 SC Q8H * SCD left LE * Pepcid 20 mg PO BID * Bed rest for now with fall risk precautions Status: Acute
[2016-10-30] MEDS: Sodium Chloride 0.45% 1,000 ML IV SCH (20:15)
--- NOTE | 2016-10-30 21:54 | CARD ---
APPROVED REPORT EKG Measurement Heart [id number] <Conclusion> Normal sinus rhythm Normal ECG
--- NOTE | 2016-10-30 21:57 | CARD ---
APPROVED REPORT EKG Measurement Heart [id number] <Conclusion> Normal sinus rhythm Nonspecific ST abnormality Abnormal ECG
[2016-10-31] MEDS: Piperacill/Tazo 3.375gm in Dex 3.375 GM/50 ML BAG IVPB SCH ×4 (02:49→21:07)
[2016-10-31 06:32] LABS: BASO % 0.4 % (0.0-2.0); EOS # 0.3 K/uL (0.0-0.7); EOS % 3.7 % (0.0-4.0); LYMPH # 1.3 K/uL (1.0-4.3); LYMPH % 18.9 % (20.0-40.0); MEAN CELL VOLUME 89.8 fL (81.0-99.0); MEAN CORPUSCULAR HEMOGLOBIN 30.1 pg (27.0-31.0); MEAN CORPUSCULAR HGB CONC 33.5 g/dL (33.0-37.0); MEAN PLATELET VOLUME 10.2 fL (7.2-11.7); MONO # 0.5 K/uL (0.0-0.8); MONO % 7.3 % (0.0-10.0); NRBC % 0.1 % (0.0-2.0); RED CELL DISTRIBUTION WIDTH 12.6 % (11.5-14.5)
[2016-10-31 06:35] LABS: ALB/GLOB RATIO 1.2 (1.0-2.1); ALKALINE PHOSPHATASE 151 U/L (38-126); ALT/SGPT 21 U/L (9-52); AST/SGOT 21 U/L (14-36); BILIRUBIN,TOTAL 1.3 mg/dL (0.2-1.3); BLOOD UREA NITROGEN 15 mg/dL (7-17); CALCIUM 8.8 mg/dl (8.6-10.4); CARBON DIOXIDE 28 mmol/L (22-30); CHLORIDE 102 mmol/L (98-107); GFR AFRICAN-AMERICAN > 60; GLUCOSE,RANDOM 135 mg/dL (65-105); POTASSIUM 3.7 mmol/L (3.6-5.2); SODIUM 139 mmol/L (132-148); TOTAL PROTEIN 6.5 g/dL (6.3-8.3)
[2016-10-31] MEDS: (Novolin R) Insulin Human Regular 100 units/ml vial SC SCH ×4 (07:45→22:11)
--- NOTE | 2016-10-31 09:10 | CP.PCM.PN ---
Subjective - Date & Time of Evaluation Date of Evaluation: 10/31/16 Time of Evaluation: 09:07 - Subjective Subjective: Patient with complaints of hip pain, controlled. Denies CP/SOB Objective - Vital Signs/Intake and Output Vital Signs (last 24 hours): Temp Pulse Resp BP Pulse Ox 98.3 F 68 20 116/65 96 10/31/16 07:25 10/31/16 07:25 10/31/16 07:25 10/31/16 07:25 10/31/16 07:25 Intake and Output: 10/31/16 10/31/16 06:59 18:59 Intake Total 450 Balance 450 - Medications Medications: Current Medications Enalapril Maleate (Vasotec) 10 mg PO DAILY [facility] Last Admin: 10/30/16 12:17 Dose: 10 mg Famotidine (Pepcid) 20 mg PO BID [facility] Last Admin: 10/30/16 18:51 Dose: 20 mg Heparin Sodium (Porcine) (Heparin) 5,000 units SC Q8 [facility] Stop: 10/31/16 15:00 Last Admin: 10/31/16 05:55 Dose: 5,000 units Piperacillin Sod/Tazobactam Sod (Zosyn 3.375 Gm Iv Premix) 3.375 gm in 50 mls @ 100 mls/hr IVPB Q6H [facility] Last Admin: 10/31/16 02:49 Dose: 100 mls/hr Sodium Chloride (Sodium Chloride 0.45%) 1,000 mls @ 50 mls/hr IV .Q20H [facility] Last Admin: 10/30/16 20:15 Dose: 50 mls/hr Influenza Virus Vaccine (Afluria) 45 mcg IM .ONCE ONE Stop: 11/01/16 10:01 Insulin Human Regular (Novolin R) 0 unit SC ACHS [facility] PRN Reason: Protocol Last Admin: 10/31/16 07:45 Dose: Not Given Morphine Sulfate (Morphine) 2 mg IVP Q4H PRN PRN Reason: Pain, moderate (4-7) Last Admin: 10/30/16 16:24 Dose: 2 mg Morphine Sulfate (Morphine) 4 mg IVP Q4 PRN PRN Reason: Pain, severe (8-10) Last Admin: 10/30/16 12:29 Dose: 4 mg Rosuvastatin Calcium (Crestor) 40 mg PO HS [facility] Last Admin: 10/30/16 21:34 Dose: 40 mg - Labs Labs: 10/31/16 06:01 10/31/16 06:01 PT 13.1 SECONDS (9.7-12.2) H 10/28/16 14:51 INR 1.2 10/28/16 14:51 APTT 34 SECONDS (21-34) 10/28/16 14:51 - Extremities Exam Additional comments: RLE: +ROM ankle/toes, sensation intact, calves soft NT neg homans, +DP pulse, skin intact, no discoloration Assessment and Plan (1) Fracture of femoral neck, right Assessment & Plan: NPO p MN for OR in am ID note appreciated, on Zosyn, possible colonization plavix held surgery delayed due to UTI and plavix, increased risk of bleeding with surgery, OR scheduled 11/01 t&C cardio intermediate risk d/w Dr. Osborne, agrees with above Status: Acute (2) Degenerative joint disease of left hip Assessment & Plan: for THR Status: Chronic
--- NOTE | 2016-10-31 10:57 | CP.PCM.CON ---
<Gena Haider. - Last Filed: 10/31/16 15:37> History of Present Illness - History of Present Illness History of Present Illness: This patient is a 70 year old female with a past medical history of DM, hypertension, hyperlipidemia, and arthritis, who presents to the hospital after falling. Patient was talking on the phone with her daughter when she tripped on a staircase and fell on her right hip. Patient was transported to the ED at [facility] and was found to have a right femur fracture. She reports having 9/10 pain in her right hip and lower extremities. She denies chest pain, abdominal pain, nausea, vomiting, fevers, and left leg pain. [Translation provided by son, Ike] PMD: Dr. Epperson PMHx: HTN, DM, Hyperlipidemia, Arthritis; As per previous hospital notes, patient had balloon angioplasty of right SFA in 2014 (w/Dr. Coto). SurgHx: denies FamHx: Mother, Father, Brother- [place] SocialHx: Smoked 1 cigarette daily for 15 years. Quit approximately 1 year ago. Denies alcohol and drug use. Allergies: NKDA Medications: Plavix, Metformin, Crestor, Ramipril, Invokana. Review of Systems - Constitutional Constitutional: absent: Fever - Cardiovascular Cardiovascular: absent: Chest Pain, Dyspnea - Respiratory Respiratory: absent: Cough, Dyspnea - Gastrointestinal Gastrointestinal: absent: Abdominal Pain, Constipation, Diarrhea, Nausea, Vomiting - Musculoskeletal Additional comments: Right hip and lower extremity pain - Neurological Neurological: absent: Dizziness, Frequent Falls (fell in 01/2016; no injury), Headaches Past Patient History - Past Social History Smoking Status: Former Smoker - CARDIAC Hx Hypercholesterolemia: Yes Hx Hypertension: Yes - NEUROLOGICAL Hx Paralysis: No - ENDOCRINE/METABOLIC Hx Diabetes Mellitus Type 2: Yes - HEMATOLOGICAL/ONCOLOGICAL Hx Blood Transfusions: No Hx Blood Transfusion Reaction: No - MUSCULOSKELETAL/RHEUMATOLOGICAL Hx Musculoskeletal Disorders: Yes Hx Falls: Yes - PSYCHIATRIC Hx Substance Use: No - SURGICAL HISTORY Hx Surgeries: Yes - ANESTHESIA Hx Anesthesia: No Meds Allergies/Adverse Reactions: Allergies Allergy/AdvReac Type Severity Reaction Status Date / Time No Known Allergies Allergy Verified 10/28/16 13:16 - Medications Medications: Current Medications Enalapril Maleate (Vasotec) 10 mg PO DAILY [facility] Last Admin: 10/30/16 12:17 Dose: 10 mg Famotidine (Pepcid) 20 mg PO BID [facility] Last Admin: 10/30/16 18:51 Dose: 20 mg Heparin Sodium (Porcine) (Heparin) 5,000 units SC Q8 [facility] Stop: 10/31/16 15:00 Last Admin: 10/31/16 05:55 Dose: 5,000 units Piperacillin Sod/Tazobactam Sod (Zosyn 3.375 Gm Iv Premix) 3.375 gm in 50 mls @ 100 mls/hr IVPB Q6H [facility] Last Admin: 10/31/16 02:49 Dose: 100 mls/hr Sodium Chloride (Sodium Chloride 0.45%) 1,000 mls @ 50 mls/hr IV .Q20H [facility] Last Admin: 10/30/16 20:15 Dose: 50 mls/hr Influenza Virus Vaccine (Afluria) 45 mcg IM .ONCE ONE Stop: 11/01/16 10:01 Insulin Human Regular (Novolin R) 0 unit SC ACHS [facility] PRN Reason: Protocol Last Admin: 10/31/16 07:45 Dose: Not Given Morphine Sulfate (Morphine) 2 mg IVP Q4H PRN PRN Reason: Pain, moderate (4-7) Last Admin: 10/30/16 16:24 Dose: 2 mg Morphine Sulfate (Morphine) 4 mg IVP Q4 PRN PRN Reason: Pain, severe (8-10) Last Admin: 10/30/16 12:29 Dose: 4 mg Rosuvastatin Calcium (Crestor) 40 mg PO HS [facility] Last Admin: 10/30/16 21:34 Dose: 40 mg Physical Exam - Head Exam Head Exam: ATRAUMATIC, NORMAL INSPECTION - Eye Exam Eye Exam: EOMI, Normal appearance - ENT Exam ENT Exam: Mucous Membranes Moist - Respiratory Exam Respiratory Exam: Clear to Auscultation Bilateral, NORMAL BREATHING PATTERN. absent: Rales, Rhonchi, Wheezes - Cardiovascular Exam Cardiovascular Exam: REGULAR RHYTHM, +S1, +S2. absent: Bradycardia, Tachycardia - GI/Abdominal Exam GI & Abdominal Exam: Normal Bowel Sounds, Soft. absent: Distended, Tenderness - Extremities Exam Extremities exam: Positive for: tenderness (Right LE), pedal pulses present ( diminished). Negative for: pedal edema Additional comments: Right LE: no ecchymosis noted, pain/tenderness with movement and palpation. Sensation and motor function of the foot intact. Limited ROM due to pain. - Neurological Exam Neurological exam: Alert - Psychiatric Exam Psychiatric exam: Normal Affect, Normal Mood - Skin Skin Exam: Dry, Intact, Normal Color, Warm Results - Vital Signs Recent Vital Signs: Last Vital Signs Temp 98.3 F 10/31/16 07:25 Pulse 68 10/31/16 07:25 Resp 20 10/31/16 07:25 BP 116/65 10/31/16 07:25 Pulse Ox 96 10/31/16 07:25 - Labs Result Diagrams: 10/31/16 06:01 10/31/16 06:01 Labs: Laboratory Results - last 24 hr 10/30/16 10/30/16 10/30/16 11:35 13:51 16:18 WBC RBC Hgb Hct MCV MCH MCHC RDW Plt Count MPV Neut % (Auto) Lymph % (Auto) [place] % (Auto) Eos % (Auto) Baso % (Auto) Neut # Lymph # [place] # Eos # Baso # Plt Function Assay 208 Sodium Potassium Chloride Carbon Dioxide Anion Gap BUN Creatinine Est GFR ( Amer) Est GFR (Non-Af Amer) POC Glucose (mg/dL) 132 H 188 H Random Glucose Calcium Total Bilirubin AST ALT Alkaline Phosphatase Total Protein Albumin Globulin Albumin/Globulin Ratio 10/30/16 10/31/16 10/31/16 21:34 06:01 06:01 WBC 7.0 RBC 4.46 Hgb 13.4 Hct 40.0 MCV 89.8 MCH 30.1 MCHC 33.5 RDW 12.6 Plt Count 240 MPV 10.2 Neut % (Auto) 69.7 Lymph % (Auto) 18.9 L [place] % (Auto) 7.3 Eos % (Auto) 3.7 Baso % (Auto) 0.4 Neut # 4.9 Lymph # 1.3 [place] # 0.5 Eos # 0.3 Baso # 0.0 Plt Function Assay Sodium 139 Potassium 3.7 Chloride 102 Carbon Dioxide 28 Anion Gap 13 BUN 15 Creatinine 0.6 L Est GFR ( Amer) > 60 Est GFR (Non-Af Amer) > 60 POC Glucose (mg/dL) 197 H Random Glucose 135 H Calcium 8.8 Total Bilirubin 1.3 AST 21 ALT 21 Alkaline Phosphatase 151 H Total Protein 6.5 Albumin 3.5 Globulin 3.0 Albumin/Globulin Ratio 1.2 10/31/16 06:31 WBC RBC Hgb Hct MCV MCH MCHC RDW Plt Count MPV Neut % (Auto) Lymph % (Auto) [place] % (Auto) Eos % (Auto) Baso % (Auto) Neut # Lymph # [place] # Eos # Baso # Plt Function Assay Sodium Potassium Chloride Carbon Dioxide Anion Gap BUN Creatinine Est GFR ( Amer) Est GFR (Non-Af Amer) POC Glucose (mg/dL) 139 H Random Glucose Calcium Total Bilirubin AST ALT Alkaline Phosphatase Total Protein Albumin Globulin Albumin/Globulin Ratio Assessment & Plan (1) Platelet dysfunction Assessment and Plan: 70 year old female with past medical history of DM, HTN, HLD, and arthritis, s/ p fall with right femur fracture. Patient has a platelet dysfunction secondary to care home use of Plavix. Platelet function test was ordered and results were 208. Patient is clear for orthopedic surgery from hematologic standpoint. Patient may continue antiplatelet therapy the following day after surgery. Status: Acute <Rob Liao - Last Filed: 11/01/16 12:20> Meds - Medications Medications: Current Medications Enalapril Maleate (Vasotec) 10 mg PO DAILY [facility] Last Admin: 10/31/16 10:36 Dose: 10 mg Famotidine (Pepcid) 20 mg PO BID [facility] Last Admin: 10/31/16 18:25 Dose: 20 mg Piperacillin Sod/Tazobactam Sod (Zosyn 3.375 Gm Iv Premix) 3.375 gm in 50 mls @ 100 mls/hr IVPB Q6H [facility] Last Admin: 11/01/16 03:30 Dose: 100 mls/hr Sodium Chloride (Sodium Chloride 0.45%) 1,000 mls @ 50 mls/hr IV .Q20H [facility] Last Admin: 10/31/16 21:06 Dose: 50 mls/hr Insulin Human Regular (Novolin R) 0 unit SC ACHS [facility] PRN Reason: Protocol Last Admin: 11/01/16 08:03 Dose: Not Given Morphine Sulfate (Morphine) 2 mg IVP Q4H PRN PRN Reason: Pain, moderate (4-7) Last Admin: 10/30/16 16:24 Dose: 2 mg Morphine Sulfate (Morphine) 4 mg IVP Q4 PRN PRN Reason: Pain, severe (8-10) Last Admin: 10/30/16 12:29 Dose: 4 mg Rosuvastatin Calcium (Crestor) 40 mg PO HS [facility] Last Admin: 10/31/16 21:07 Dose: 40 mg Results - Vital Signs Recent Vital Signs: Last Vital Signs Temp 98.2 F 11/01/16 07:25 Pulse 68 11/01/16 07:25 Resp 20 11/01/16 07:25 BP 146/77 11/01/16 07:25 Pulse Ox 98 11/01/16 07:25 - Labs Result Diagrams: 11/01/16 06:11 11/01/16 06:11 Labs: Laboratory Results - last 24 hr 10/31/16 10/31/16 11/01/16 16:04 21:29 06:11 WBC 6.1 RBC 4.25 Hgb 12.9 Hct 38.6 MCV 90.7 MCH 30.4 MCHC 33.5 RDW 12.9 Plt Count 235 MPV 9.7 Neut % (Auto) 58.1 Lymph % (Auto) 28.4 [place] % (Auto) 8.5 Eos % (Auto) 4.4 H Baso % (Auto) 0.6 Neut # 3.5 Lymph # 1.7 [place] # 0.5 Eos # 0.3 Baso # 0.0 PT INR Sodium Potassium Chloride Carbon Dioxide Anion Gap BUN Creatinine Est GFR ( Amer) Est GFR (Non-Af Amer) POC Glucose (mg/dL) 149 H 257 H Random Glucose Calcium Total Bilirubin AST ALT Alkaline Phosphatase Total Protein Albumin Globulin Albumin/Globulin Ratio Blood Type Antibody Screen 11/01/16 11/01/16 11/01/16 06:11 06:11 06:11 WBC RBC Hgb Hct MCV MCH MCHC RDW Plt Count MPV Neut % (Auto) Lymph % (Auto) [place] % (Auto) Eos % (Auto) Baso % (Auto) Neut # Lymph # [place] # Eos # Baso # PT 13.0 H INR 1.2 Sodium 140 Potassium 3.6 Chloride 101 Carbon Dioxide 28 Anion Gap 15 BUN 13 Creatinine 0.5 L Est GFR ( Amer) > 60 Est GFR (Non-Af Amer) > 60 POC Glucose (mg/dL) Random Glucose 134 H Calcium 8.8 Total Bilirubin 1.0 AST 28 ALT 24 Alkaline Phosphatase 138 H Total Protein 6.3 Albumin 3.4 L Globulin 3.0 Albumin/Globulin Ratio 1.1 Blood Type B POSITIVE Antibody Screen Negative 11/01/16 06:22 WBC RBC Hgb Hct MCV MCH MCHC RDW Plt Count MPV Neut % (Auto) Lymph % (Auto) [place] % (Auto) Eos % (Auto) Baso % (Auto) Neut # Lymph # [place] # Eos # Baso # PT INR Sodium Potassium Chloride Carbon Dioxide Anion Gap BUN Creatinine Est GFR ( Amer) Est GFR (Non-Af Amer) POC Glucose (mg/dL) 154 H Random Glucose Calcium Total Bilirubin AST ALT Alkaline Phosphatase Total Protein Albumin Globulin Albumin/Globulin Ratio Blood Type Antibody Screen Assessment & Plan - Assessment and Plan (Free Text) Assessment: Pt seen and examined, agree with residents consult. 70 y/o female on antiplatelet therapy admitted with hip fracture requiring surgical fixation. Platelet function test ordered and reviewed. The patient is cleared from a hematologic standpoint for orthopedic surgery. Can resume antiplatelet therapy the following day post op. Thank you for this interesting consult.
[2016-10-31] MEDS: Sodium Chloride 0.45% 1,000 ML IV SCH ×2 (15:30→21:06)
--- NOTE | 2016-10-31 16:22 | CP.PCM.PN ---
<Phoebe Dykes - Last Filed: 10/31/16 16:19> Subjective - Date & Time of Evaluation Date of Evaluation: 10/31/16 Time of Evaluation: 16:19 - Subjective Subjective: Internal Medicine Progress Note for Dr. Romero Patient seen and examined at bedside. No acute events overnight. Patient is happy and is aware of surgery scheduled for tomorrow. Patient is NPO past midnight tonight. Patient has no complaints. Patient is tolerating pain well but states she feels pain on her right hip. Patient denies any fever, chills, no urinary issues, no dysuria. Objective - Vital Signs/Intake and Output Vital Signs (last 24 hours): Temp Pulse Resp BP Pulse Ox 97.4 F L 66 20 108/65 96 10/31/16 15:35 10/31/16 15:35 10/31/16 15:35 10/31/16 15:35 10/31/16 15:35 Intake and Output: 10/31/16 10/31/16 06:59 18:59 Intake Total 450 Balance 450 - Medications Medications: Current Medications Enalapril Maleate (Vasotec) 10 mg PO DAILY [facility] Last Admin: 10/31/16 10:36 Dose: 10 mg Famotidine (Pepcid) 20 mg PO BID [facility] Last Admin: 10/31/16 10:36 Dose: 20 mg Piperacillin Sod/Tazobactam Sod (Zosyn 3.375 Gm Iv Premix) 3.375 gm in 50 mls @ 100 mls/hr IVPB Q6H [facility] Last Admin: 10/31/16 14:15 Dose: 100 mls/hr Sodium Chloride (Sodium Chloride 0.45%) 1,000 mls @ 50 mls/hr IV .Q20H [facility] Last Admin: 10/30/16 20:15 Dose: 50 mls/hr Influenza Virus Vaccine (Afluria) 45 mcg IM .ONCE ONE Stop: 11/01/16 10:01 Insulin Human Regular (Novolin R) 0 unit SC ACHS [facility] PRN Reason: Protocol Last Admin: 10/31/16 13:00 Dose: 2 unit Morphine Sulfate (Morphine) 2 mg IVP Q4H PRN PRN Reason: Pain, moderate (4-7) Last Admin: 10/30/16 16:24 Dose: 2 mg Morphine Sulfate (Morphine) 4 mg IVP Q4 PRN PRN Reason: Pain, severe (8-10) Last Admin: 10/30/16 12:29 Dose: 4 mg Rosuvastatin Calcium (Crestor) 40 mg PO HS [facility] Last Admin: 10/30/16 21:34 Dose: 40 mg - Labs Labs: 10/31/16 06:01 10/31/16 06:01 PT 13.1 SECONDS (9.7-12.2) H 10/28/16 14:51 INR 1.2 10/28/16 14:51 APTT 34 SECONDS (21-34) 10/28/16 14:51 - Constitutional Appears: Non-toxic - Head Exam Head Exam: NORMAL INSPECTION - Eye Exam Eye Exam: EOMI, Normal appearance - ENT Exam ENT Exam: Mucous Membranes Moist - Neck Exam Neck Exam: Full ROM - Cardiovascular Exam Cardiovascular Exam: REGULAR RHYTHM. absent: Bradycardia, Tachycardia - GI/Abdominal Exam GI & Abdominal Exam: Soft. absent: Tenderness - Extremities Exam Extremities Exam: Tenderness Additional comments: no hematoma, no ecchymosis pain on right hip. Patient doesn't move legs due to pain. - Neurological Exam Neurological Exam: Alert, Awake, Oriented x3 - Psychiatric Exam Psychiatric exam: Normal Affect, Normal Mood - Skin Skin Exam: Dry, Intact, Normal Color, Warm Assessment and Plan - Assessment and Plan (Free Text) Assessment: Hip fracture, right Assessment and Plan: * Orthopedic consult placed- Dr. Osborne- help appreciated. * Cancelled OR in light of positive urine culture 10/30/16, patient is placed on antibiotics * Anticoagulation per surgery * Surgery management including preoperative, intraoperative, and postoperative per surgery * Cardiology-- Dr. Valladares-->help appreciated * Per cardiology, patient is at intermediate risk for planned surgery. Asymptomatic. Not in CHF. No significant valvular stenos on examination. No cardiovascular contraindication to planned surgery Recommend for post-op troponin and EKG and Hgb>10 * Procedure cancelled in light of positive urine culture 10/30; recommended for ID consult, and concern for bleeding given recent Plavix use * 10/30 Platelet function test 208 * and mixing study ordered on 10/30 * follow up consult heme-onc regarding bleeding risk in light of recent Plavix use * Rescheduled for 11/01/16. DVT ppx resumed by orthopedic. plavix held after 10/31 2pm dose * Morphine 2 mg IVP Q4H PRN for moderate pain * Morphine 4 mg IVP Q4H PRN for severe pain * Imaging: Hip CT 10/28/16 shows Intertrochanteric fracture seen through the right proximal femur at the base of the right femoral neck. Distraction at the fracture site. Additional fracture deformity through base of the right greater trochanter with comminution at that level. Heterotopic bone formation at the level of the greater trochanter. * 10/28 Tib/Fib Xray: no evidence of acute displaced fracture or dislocation of the visualized tibia and fibula. * Status post fall Assessment and Plan: * As per patient and daughter, patient did not hit her head. * No evidence of head trauma on physical exam. * No CT head at this time. * A/P for right hip fractures as above. Chest pain Assessment and Plan: * Asymptomatic * Trade Facilitator Dr. Valladares consulted for cardiac clearance- help appreciated * Per cardiology, patient is at intermediate risk for planned surgery. Asymptomatic. Not in CHF. No significant valvular stenos on examination. No cardiovascular contraindication to planned surgery Recommend for post-op troponin and EKG and Hgb>10 * Off Plavix since admission-->when patient has surgery; will need to follow-up with ortho to determine when to restart plavix * Pending echocardiogram official read * EKG: NSR X3; ENOCH negative X3. * Crestor 40 mg PO HS started * Hold Plavix in anticipation of planned surgery * Morphine IVP Q4H PRN for pain * f/u 2D ECHO-->pending * Hgb A1C: 7.5 Renal insufficiency Assessment and Plan: * Monitor BUN/Cr * on Admission Patient given IVF in the ED. BP became elevated. * Start gentle IV hydration HTN (hypertension) Assessment and Plan: * Enalapril 10mg PO daily * Monitor BP and add medications as needed. Diabetes Assessment and Plan: Random glucose 148. * Start low dose insulin sliding scale * Hold home med Metformin 500mg PO daily for now * Hold home med Invokana 300 mg PO daily for now Accuchecks ACHS Consistent Carb/Heart Healthy Diet Hgb A1C: 7.5 PVD Assessment and Plan: * Patient had balloon angioplasty of right SFA with Dr. Coto in 2014. * Patient takes Plavix 75 mg PO daily and Crestor 40 mg PO daily at home--> plavix held on admission in light of hip surgery Prophylactic measure Assessment and Plan: * Anticoagulation restarted per orthopedic in light of cancelled procedure today Heparin 5000 SC Q8H * SCD left LE * Pepcid 20 mg PO BID * Bed rest for now with fall risk precautions <Amy Romero V - Last Filed: 10/31/16 22:29> Objective - Vital Signs/Intake and Output Vital Signs (last 24 hours): Temp Pulse Resp BP Pulse Ox 97.4 F L 66 20 108/65 96 10/31/16 15:35 10/31/16 15:35 10/31/16 15:35 10/31/16 15:35 10/31/16 15:35 Intake and Output: 10/31/16 11/01/16 18:59 06:59 Intake Total 740 Output Total 300 Balance 440 - Medications Medications: Current Medications Enalapril Maleate (Vasotec) 10 mg PO DAILY [facility] Last Admin: 10/31/16 10:36 Dose: 10 mg Famotidine (Pepcid) 20 mg PO BID [facility] Last Admin: 10/31/16 18:25 Dose: 20 mg Piperacillin Sod/Tazobactam Sod (Zosyn 3.375 Gm Iv Premix) 3.375 gm in 50 mls @ 100 mls/hr IVPB Q6H [facility] Last Admin: 10/31/16 21:07 Dose: 100 mls/hr Sodium Chloride (Sodium Chloride 0.45%) 1,000 mls @ 50 mls/hr IV .Q20H [facility] Last Admin: 10/31/16 21:06 Dose: 50 mls/hr Influenza Virus Vaccine (Afluria) 45 mcg IM .ONCE ONE Stop: 11/01/16 10:01 Insulin Human Regular (Novolin R) 0 unit SC ACHS [facility] PRN Reason: Protocol Last Admin: 10/31/16 22:11 Dose: Not Given Morphine Sulfate (Morphine) 2 mg IVP Q4H PRN PRN Reason: Pain, moderate (4-7) Last Admin: 10/30/16 16:24 Dose: 2 mg Morphine Sulfate (Morphine) 4 mg IVP Q4 PRN PRN Reason: Pain, severe (8-10) Last Admin: 10/30/16 12:29 Dose: 4 mg Rosuvastatin Calcium (Crestor) 40 mg PO HS [facility] Last Admin: 10/31/16 21:07 Dose: 40 mg - Labs Labs: 10/31/16 06:01 10/31/16 06:01 PT 13.1 SECONDS (9.7-12.2) H 10/28/16 14:51 INR 1.2 10/28/16 14:51 APTT 34 SECONDS (21-34) 10/28/16 14:51 Attending/Attestation - Attestation I have personally seen and examined this patient.: Yes I have fully participated in the care of the patient.: Yes I have reviewed all pertinent clinical information, including history, physical exam and plan: Yes Notes (Text): Patient seen, examined, and case discussed with day-time resident. Patient seen and examined this afternoon with patient's son at bedside. Patient reports right hip pain, denies other complaints. Discussed with heme-onc, patient is stable from their standpoint for ortho procedure. Discussed with Leanne PEDERSEN who is aware. Patient is asymptomatic of positive urine culture; likely colonizer; patient has been on Zosyn to cover since 10/30; ordered for repeat urine culture ( straight cath). ID assessed patient day before. Anticoagulation per ortho. Patient is intermediate risk per cardiology. Patient is medically optimized prior to procedure Assessment/Plan (1) Hip fracture, right Assessment and Plan: * Orthopedic consult placed- Dr. Osborne- help appreciated. * Cancelled OR in light of positive urine culture 10/30/16 * Anticoagulation per surgery * Surgery management including preoperative, intraoperative, and postoperative per surgery * Cardiology-- Dr. Valladares-->help appreciated * Per cardiology, patient is at intermediate risk for planned surgery. Asymptomatic. Not in CHF. No significant valvular stenos on examination. No cardiovascular contraindication to planned surgery Recommend for post-op troponin and EKG and Hgb>10 * Procedure cancelled in light of positive urine culture 10/30; recommended for ID consult, and concern for bleeding given recent Plavix use * Platelet function test 208 on 10/30-->per heme-onc, stable from their standpoint to proceed to OR tomorrow * Rescheduled for 11/01/16. DVT ppx resumed by orthopedic. * Morphine 2 mg IVP Q4H PRN for moderate pain * Morphine 4 mg IVP Q4H PRN for severe pain * Imaging: Hip CT 10/28/16 shows Intertrochanteric fracture seen through the right proximal femur at the base of the right femoral neck. Distraction at the fracture site. Additional fracture deformity through base of the right greater trochanter with comminution at that level. Heterotopic bone formation at the level of the greater trochanter. * Tib/Fib Xray R 10/28/16 shows no evidence of acute displaced fracture or dislocation of the visualized tibia and fibula. * Status: Acute (2) Status post fall Assessment and Plan: * As per patient and daughter, patient did not hit her head. * No evidence of head trauma on physical exam. * No CT head at this time. * A/P for right hip fractures as above. Status: Acute (3) Chest pain Assessment and Plan: * Asymptomatic * Trade Facilitator Dr. Valladares consulted for cardiac clearance- help appreciated * Per cardiology, patient is at intermediate risk for planned surgery. Asymptomatic. Not in CHF. No significant valvular stenos on examination. No cardiovascular contraindication to planned surgery Recommend for post-op troponin and EKG and Hgb>10 * Off Plavix since admission-->when patient has surgery; will need to follow-up with ortho to determine when to restart plavix * Pending echocardiogram official read * EKG: NSR X3; ENOCH negative X3. * Crestor 40 mg PO HS started * Hold Plavix in anticipation of planned surgery * Morphine IVP Q4H PRN for pain * f/u 2D ECHO-->pending * Hgb A1C: 7.5 Status: Acute (4) Renal insufficiency Assessment and Plan: * Monitor BUN/Cr * on Admission Patient given IVF in the ED. BP became elevated. * Start gentle IV hydration 10/30 * Improved 10/31; likely dehydration Status: Acute (5) HTN (hypertension) Assessment and Plan: * Enalapril 10mg PO daily * Monitor BP and add medications as needed. Status: Acute (6) Diabetes Assessment and Plan: Random glucose 148. * Start low dose insulin sliding scale * Hold home med Metformin 500mg PO daily for now * Hold home med Invokana 300 mg PO daily for now Accuchecks ACHS Consistent Carb/Heart Healthy Diet Hgb A1C: 7.5 Status: Acute (7) PVD Assessment and Plan: * Patient had balloon angioplasty of right SFA with Dr. Coto in 2014. * Patient takes Plavix 75 mg PO daily and Crestor 40 mg PO daily at home--> plavix held on admission in light of hip surgery Prophylactic measure Assessment and Plan: * Anticoagulation restarted per orthopedic in light of cancelled procedure today Heparin 5000 SC Q8H * SCD left LE * Pepcid 20 mg PO BID * Bed rest for now with fall risk precautions Status: Acute Disposition: patient to go for OR tomorrow for orthopedic procedure. patient is medically optimized prior to procedure. Per heme-onc, patient is stable to proceed with procedure. Per ID, proceed with procedure 10/30 note
[2016-11-01] MEDS: Piperacill/Tazo 3.375gm in Dex 3.375 GM/50 ML BAG IVPB SCH ×4 (03:30→21:08)
[2016-11-01 06:23] LABS: BASO % 0.6 % (0.0-2.0); EOS # 0.3 K/uL (0.0-0.7); EOS % 4.4 % (0.0-4.0); HEMATOCRIT 38.6 % (34.0-47.0); LYMPH # 1.7 K/uL (1.0-4.3); LYMPH % 28.4 % (20.0-40.0); MEAN CELL VOLUME 90.7 fL (81.0-99.0); MEAN CORPUSCULAR HEMOGLOBIN 30.4 pg (27.0-31.0); MEAN CORPUSCULAR HGB CONC 33.5 g/dL (33.0-37.0); MEAN PLATELET VOLUME 9.7 fL (7.2-11.7); MONO # 0.5 K/uL (0.0-0.8); MONO % 8.5 % (0.0-10.0); NRBC % 0.1 % (0.0-2.0); RED CELL DISTRIBUTION WIDTH 12.9 % (11.5-14.5); WHITE BLOOD COUNT 6.1 K/uL (4.8-10.8)
[2016-11-01 06:27] LABS: INR 1.2
[2016-11-01 06:40] LABS: ALB/GLOB RATIO 1.1 (1.0-2.1); ALKALINE PHOSPHATASE 138 U/L (38-126); ALT/SGPT 24 U/L (9-52); AST/SGOT 28 U/L (14-36); BLOOD UREA NITROGEN 13 mg/dL (7-17); CALCIUM 8.8 mg/dl (8.6-10.4); CARBON DIOXIDE 28 mmol/L (22-30); CHLORIDE 101 mmol/L (98-107); GFR AFRICAN-AMERICAN > 60; GLUCOSE,RANDOM 134 mg/dL (65-105); POTASSIUM 3.6 mmol/L (3.6-5.2); SODIUM 140 mmol/L (132-148); TOTAL PROTEIN 6.3 g/dL (6.3-8.3)
--- NOTE | 2016-11-01 07:17 | CP.PCM.PN ---
<Phoebe Dykes - Last Filed: 11/01/16 14:18> Subjective - Date & Time of Evaluation Date of Evaluation: 11/01/16 Time of Evaluation: 07:15 - Subjective Subjective: Internal Medicine Progress Note for Dr. Romero Patient seen and examined at bedside. No acute events overnight. Patient is scheduled for surgery today for her right basicervical fracture. Patient has no complaints. Patient is tolerating pain well but states she feels pain on her right hip. Patient denies any fever, chills, no urinary issues, no dysuria. Objective - Vital Signs/Intake and Output Vital Signs (last 24 hours): Temp Pulse Resp BP Pulse Ox 98.0 F 68 20 114/62 97 10/31/16 23:15 10/31/16 23:15 10/31/16 23:15 11/01/16 04:00 10/31/16 23:15 Intake and Output: 11/01/16 11/01/16 06:59 18:59 Intake Total 1040 Output Total 300 Balance 740 - Medications Medications: Current Medications Enalapril Maleate (Vasotec) 10 mg PO DAILY [facility] Last Admin: 10/31/16 10:36 Dose: 10 mg Famotidine (Pepcid) 20 mg PO BID [facility] Last Admin: 10/31/16 18:25 Dose: 20 mg Piperacillin Sod/Tazobactam Sod (Zosyn 3.375 Gm Iv Premix) 3.375 gm in 50 mls @ 100 mls/hr IVPB Q6H [facility] Last Admin: 11/01/16 03:30 Dose: 100 mls/hr Sodium Chloride (Sodium Chloride 0.45%) 1,000 mls @ 50 mls/hr IV .Q20H [facility] Last Admin: 10/31/16 21:06 Dose: 50 mls/hr Influenza Virus Vaccine (Afluria) 45 mcg IM .ONCE ONE Stop: 11/01/16 10:01 Insulin Human Regular (Novolin R) 0 unit SC ACHS [facility] PRN Reason: Protocol Last Admin: 10/31/16 22:11 Dose: Not Given Morphine Sulfate (Morphine) 2 mg IVP Q4H PRN PRN Reason: Pain, moderate (4-7) Last Admin: 10/30/16 16:24 Dose: 2 mg Morphine Sulfate (Morphine) 4 mg IVP Q4 PRN PRN Reason: Pain, severe (8-10) Last Admin: 10/30/16 12:29 Dose: 4 mg Rosuvastatin Calcium (Crestor) 40 mg PO HS [facility] Last Admin: 10/31/16 21:07 Dose: 40 mg - Labs Labs: 11/01/16 06:11 11/01/16 06:11 PT 13.0 SECONDS (9.7-12.2) H 11/01/16 06:11 INR 1.2 11/01/16 06:11 APTT 34 SECONDS (21-34) 10/28/16 14:51 - Constitutional Appears: Non-toxic - Head Exam Head Exam: NORMAL INSPECTION - Eye Exam Eye Exam: EOMI, Normal appearance - ENT Exam ENT Exam: Mucous Membranes Moist - Neck Exam Neck Exam: Full ROM - Respiratory Exam Respiratory Exam: Clear to Ausculation Bilateral, NORMAL BREATHING PATTERN. absent: Accessory Muscle Use - Cardiovascular Exam Cardiovascular Exam: REGULAR RHYTHM. absent: Bradycardia, Tachycardia - GI/Abdominal Exam GI & Abdominal Exam: Soft. absent: Tenderness - Back Exam Back Exam: NORMAL INSPECTION - Neurological Exam Neurological Exam: Alert, Awake, Oriented x3 - Psychiatric Exam Psychiatric exam: Normal Affect, Normal Mood - Skin Skin Exam: Dry, Intact, Normal Color, Warm Assessment and Plan - Assessment and Plan (Free Text) Assessment: (1) Hip fracture, right Assessment and Plan: * Orthopedic consult placed- Dr. Osborne- help appreciated. * Cancelled OR in light of positive urine culture 10/30/16 * Anticoagulation per surgery * Surgery management including preoperative, intraoperative, and postoperative per surgery * Cardiology-- Dr. Valladares-->help appreciated * Per cardiology, patient is at intermediate risk for planned surgery. Asymptomatic. Not in CHF. No significant valvular stenos on examination. No cardiovascular contraindication to planned surgery Recommend for post-op troponin and EKG and Hgb>10 * Procedure cancelled in light of positive urine culture 10/30; recommended for ID consult, and concern for bleeding given recent Plavix use * Platelet function test 208 on 10/30-->per heme-onc, stable from their standpoint to proceed to OR tomorrow * Rescheduled for 11/01/16. DVT ppx resumed by orthopedic. * Morphine 2 mg IVP Q4H PRN for moderate pain * Morphine 4 mg IVP Q4H PRN for severe pain * Imaging: Hip CT 10/28/16 shows Intertrochanteric fracture seen through the right proximal femur at the base of the right femoral neck. Distraction at the fracture site. Additional fracture deformity through base of the right greater trochanter with comminution at that level. Heterotopic bone formation at the level of the greater trochanter. * Tib/Fib Xray R 10/28/16 shows no evidence of acute displaced fracture or dislocation of the visualized tibia and fibula. (2) Status post fall Assessment and Plan: * As per patient and daughter, patient did not hit her head. * No evidence of head trauma on physical exam. * No CT head at this time. * A/P for right hip fractures as above. (3) Chest pain Assessment and Plan: * Asymptomatic * English As [employer] Language Instructor Dr. Valladares consulted for cardiac clearance- help appreciated * Per cardiology, patient is at intermediate risk for planned surgery. Asymptomatic. Not in CHF. No significant valvular stenos on examination. No cardiovascular contraindication to planned surgery Recommend for post-op troponin and EKG and Hgb>10 * Off Plavix since admission-->when patient has surgery; will need to follow-up with ortho to determine when to restart plavix * Pending echocardiogram official read * EKG: NSR X3; ENOCH negative X3. * Crestor 40 mg PO HS started * Hold Plavix in anticipation of planned surgery * Morphine IVP Q4H PRN for pain * f/u 2D ECHO-->pending * Hgb A1C: 7.5 * (4) Renal insufficiency Assessment and Plan: * Monitor BUN/Cr * on Admission Patient given IVF in the ED. BP became elevated. * Start gentle IV hydration 10/30 * Improved 10/31; likely dehydration (5) HTN (hypertension) Assessment and Plan: * Enalapril 10mg PO daily * Monitor BP and add medications as needed. (6) Diabetes Assessment and Plan: Random glucose 148. * Start low dose insulin sliding scale * Hold home med Metformin 500mg PO daily for now * Hold home med Invokana 300 mg PO daily for now Accuchecks ACHS Consistent Carb/Heart Healthy Diet Hgb A1C: 7.5 (7) PVD Assessment and Plan: * Patient had balloon angioplasty of right SFA with Dr. Coto in 2014. * Patient takes Plavix 75 mg PO daily and Crestor 40 mg PO daily at home--> plavix held on admission in light of hip surgery Prophylactic measure Assessment and Plan: * Anticoagulation Heparin 5000 SC Q8H on held for procedure, plavix on hold * SCD left LE * Pepcid 20 mg PO BID * Bed rest for now with fall risk precautions Status: Acute follow up post operatively. continue anticoagulation per Ortho <Amy Romero V - Last Filed: 11/02/16 17:39> Objective - Vital Signs/Intake and Output Vital Signs (last 24 hours): Temp Pulse Resp BP Pulse Ox 98.1 F 65 20 116/67 96 11/02/16 15:00 11/02/16 15:00 11/02/16 15:00 11/02/16 15:00 11/02/16 15:00 Intake and Output: 11/02/16 11/02/16 06:59 18:59 Intake Total 650 Balance 650 - Medications Medications: Current Medications Aspirin (Ecotrin) 81 mg PO BID [facility] Last Admin: 11/02/16 10:55 Dose: 81 mg Clopidogrel Bisulfate (Plavix) 75 mg PO DAILY [facility] Last Admin: 11/02/16 14:34 Dose: 75 mg Diphenhydramine HCl (Benadryl) 25 mg IVP Q6H PRN PRN Reason: Itching / Pruritus Docusate Sodium (Colace) 100 mg PO BID [facility] Last Admin: 11/02/16 10:55 Dose: 100 mg Enalapril Maleate (Vasotec) 10 mg PO DAILY [facility] Last Admin: 11/02/16 10:54 Dose: 10 mg Famotidine (Pepcid) 20 mg PO BID [facility] Last Admin: 11/02/16 10:54 Dose: 20 mg Piperacillin Sod/Tazobactam Sod (Zosyn 3.375 Gm Iv Premix) 3.375 gm in 50 mls @ 100 mls/hr IVPB Q6H [facility] Stop: 11/03/16 23:59 Last Admin: 11/02/16 14:38 Dose: 100 mls/hr Sodium Chloride (Sodium Chloride 0.45%) 1,000 mls @ 50 mls/hr IV .Q20H [facility] Last Admin: 10/31/16 21:06 Dose: 50 mls/hr Sodium Chloride (Sodium Chloride 0.9%) 1,000 mls @ 50 mls/hr IV .Q20H [facility] Stop: 11/03/16 07:29 Last Admin: 11/02/16 10:00 Dose: Not Given Lactated Ringer's (Lactated Ringer's) 1,000 mls @ 75 mls/hr IV .[id number] [facility] Last Admin: 11/02/16 05:14 Dose: Not Given Insulin Human Regular (Novolin R) 0 unit SC ACHS [facility] PRN Reason: Protocol Last Admin: 11/02/16 12:10 Dose: 2 unit Morphine Sulfate (Morphine) 2 mg IVP Q4H PRN PRN Reason: Pain, moderate (4-7) Last Admin: 10/30/16 16:24 Dose: 2 mg Ondansetron HCl (Zofran Inj) 4 mg IVP Q6H PRN PRN Reason: Nausea/Vomiting Last Admin: 11/02/16 17:01 Dose: 4 mg Oxycodone/Acetaminophen (Percocet 5/325 Mg Tab) 1 tab PO Q4 PRN PRN Reason: Pain, Mild (1-3) Stop: 11/04/16 15:29 Rosuvastatin Calcium (Crestor) 40 mg PO HS [facility] Last Admin: 11/01/16 21:16 Dose: Not Given - Labs Labs: 11/02/16 07:26 11/02/16 07:26 PT 13.0 SECONDS (9.7-12.2) H 11/01/16 06:11 INR 1.2 11/01/16 06:11 APTT 34 SECONDS (21-34) 10/28/16 14:51 Attending/Attestation - Attestation I have personally seen and examined this patient.: Yes I have fully participated in the care of the patient.: Yes I have reviewed all pertinent clinical information, including history, physical exam and plan: Yes Notes (Text): This is late computer entry for 11/01/16. Patient went to OR in the morning for hip procedure. Patient medically optimized prior to procedure. Attempted to the see patient in the afternoon but not back from procedure around 4PM. Endorsed to night resident to see patient post-operative. Assessment/Plan (1) Hip fracture, right Assessment and Plan: * Orthopedic consult placed- Dr. Osborne- help appreciated. * Cancelled OR in light of positive urine culture 10/30/16 * Anticoagulation per surgery * Surgery management including preoperative, intraoperative, and postoperative per surgery * Cardiology-- Dr. Valladares-->help appreciated * Per cardiology, patient is at intermediate risk for planned surgery. Asymptomatic. Not in CHF. No significant valvular stenos on examination. No cardiovascular contraindication to planned surgery Recommend for post-op troponin and EKG and Hgb>10 * Procedure cancelled in light of positive urine culture 10/30; recommended for ID consult, and concern for bleeding given recent Plavix use * Platelet function test 208 on 10/30-->per heme-onc, stable from their standpoint to proceed to OR 11/01 * Pain PRN-->Morphine 2mg IV Q 4H PRN; Morphine 4mg IV Q4 PRN * Imaging: Hip CT 10/28/16 shows Intertrochanteric fracture seen through the right proximal femur at the base of the right femoral neck. Distraction at the fracture site. Additional fracture deformity through base of the right greater trochanter with comminution at that level. Heterotopic bone formation a the level of the greater trochanter. * Tib/Fib Xray R 10/28/16 shows no evidence of acute displaced fracture or dislocation of the visualized tibia and fibula. Status: Acute (2) Status post fall Assessment and Plan: * As per patient and daughter, patient did not hit her head. * No evidence of head trauma on physical exam. * No CT head at this time. * A/P for right hip fractures as above. Status: Acute (3) Chest pain Assessment and Plan: * Asymptomatic * English As [employer] Instructor Dr. Valladares consulted for cardiac clearance- help appreciated * Per cardiology, patient is at intermediate risk for planned surgery. Asymptomatic. Not in CHF. No significant valvular stenos on examination. No cardiovascular contraindication to planned surgery Recommend for post-op troponin and EKG and Hgb>10 * Off Plavix since admission-->when patient has surgery; will need to follow-up with ortho to determine when to restart plavix * EKG: NSR X3; ENOCH negative X3. * Crestor 40 mg PO HS started * Morphine IVP Q4H PRN for pain * 2D ECHO: left ventricular ejection fraction is within the normal fange. Mitral regurgitation is trace to mild trace to mild tricupsid regurgitation * Hgb A1C: 7.5 Status: Resolved (4) Renal insufficiency Assessment and Plan: * Monitor BUN/Cr * on Admission Patient given IVF in the ED. BP became elevated. * Start gentle IV hydration (5) HTN (hypertension) Assessment and Plan: * Enalapril 10mg PO daily * Monitor BP and add medications as needed. Status: Chronic (6) Diabetes Assessment and Plan: Random glucose 148. * Start low dose insulin sliding scale * Hold home med Metformin 500mg PO daily for now * Hold home med Invokana 300 mg PO daily for now Accuchecks ACHS Consistent Carb/Heart Healthy Diet Hgb A1C: 7.5 Status: Chronic (7) PVD Assessment and Plan: * Patient had balloon angioplasty of right SFA with Dr. Coto in 2014. * Patient takes Plavix 75 mg PO daily and Crestor 40 mg PO daily at home--> plavix held on admission in light of hip surgery--f/u with surgery post operative when to restart Status: Chronic (8) Prophylactic measure Assessment and Plan: * Anticoagulation per orthopedic * SCD left LE * Pepcid 20 mg PO BID * Bed rest for now with fall risk precautions Status: Acute
[2016-11-01] MEDS: (Novolin R) Insulin Human Regular 100 units/ml vial SC SCH ×4 (08:03→21:30)
--- NOTE | 2016-11-01 09:18 | CP.PCM.PN ---
Subjective - Date & Time of Evaluation Date of Evaluation: 11/01/16 Time of Evaluation: 09:18 - Subjective Subjective: Patient was seen and examined at bedside in no acute distress. Patient's daughter, Stacey, was at bedside translating. Patient reports the pain in her right extremity is the same, has not worsened or improved. The pain increases with movement. She denies having chest pain, abdominal pain, nausea, vomiting, difficulty breathing, and fevers. Objective - Vital Signs/Intake and Output Vital Signs (last 24 hours): Temp Pulse Resp BP Pulse Ox 98.2 F 68 20 146/77 98 11/01/16 07:25 11/01/16 07:25 11/01/16 07:25 11/01/16 07:25 11/01/16 07:25 Intake and Output: 11/01/16 11/01/16 06:59 18:59 Intake Total 1040 Output Total 300 Balance 740 - Medications Medications: Current Medications Enalapril Maleate (Vasotec) 10 mg PO DAILY [facility] Last Admin: 10/31/16 10:36 Dose: 10 mg Famotidine (Pepcid) 20 mg PO BID [facility] Last Admin: 10/31/16 18:25 Dose: 20 mg Piperacillin Sod/Tazobactam Sod (Zosyn 3.375 Gm Iv Premix) 3.375 gm in 50 mls @ 100 mls/hr IVPB Q6H [facility] Last Admin: 11/01/16 03:30 Dose: 100 mls/hr Sodium Chloride (Sodium Chloride 0.45%) 1,000 mls @ 50 mls/hr IV .Q20H [facility] Last Admin: 10/31/16 21:06 Dose: 50 mls/hr Influenza Virus Vaccine (Afluria) 45 mcg IM .ONCE ONE Stop: 11/01/16 10:01 Insulin Human Regular (Novolin R) 0 unit SC ACHS [facility] PRN Reason: Protocol Last Admin: 11/01/16 08:03 Dose: Not Given Morphine Sulfate (Morphine) 2 mg IVP Q4H PRN PRN Reason: Pain, moderate (4-7) Last Admin: 10/30/16 16:24 Dose: 2 mg Morphine Sulfate (Morphine) 4 mg IVP Q4 PRN PRN Reason: Pain, severe (8-10) Last Admin: 10/30/16 12:29 Dose: 4 mg Rosuvastatin Calcium (Crestor) 40 mg PO HS [facility] Last Admin: 10/31/16 21:07 Dose: 40 mg - Labs Labs: 11/01/16 06:11 11/01/16 06:11 PT 13.0 SECONDS (9.7-12.2) H 11/01/16 06:11 INR 1.2 11/01/16 06:11 APTT 34 SECONDS (21-34) 10/28/16 14:51 - Head Exam Head Exam: ATRAUMATIC, NORMAL INSPECTION - Eye Exam Eye Exam: EOMI, Normal appearance - ENT Exam ENT Exam: Mucous Membranes Moist - Respiratory Exam Respiratory Exam: Clear to Ausculation Bilateral, NORMAL BREATHING PATTERN. absent: Rhonchi, Wheezes, Respiratory Distress - Cardiovascular Exam Cardiovascular Exam: REGULAR RHYTHM, +S1, +S2. absent: Bradycardia, Tachycardia - GI/Abdominal Exam GI & Abdominal Exam: Soft, Normal Bowel Sounds. absent: Distended, Tenderness - Extremities Exam Extremities Exam: Normal Inspection. absent: Pedal Edema, Tenderness Additional comments: Right hip/LE: No ecchymosis or swelling noted. Limited ROM due to pain. - Neurological Exam Neurological Exam: Alert, Awake, Oriented x3 - Psychiatric Exam Psychiatric exam: Normal Affect, Normal Mood - Skin Skin Exam: Dry, Intact, Normal Color, Warm Assessment and Plan (1) Platelet dysfunction Assessment & Plan: 70 year old female with past medical history of DM, HTN, HLD, and arthritis, s/ p fall with right femur fracture. 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 Platelet function test was ordered and results were 208. Patient is clear for orthopedic surgery from hematologic standpoint. Patient may continue antiplatelet therapy the following day after surgery. Status: Acute
[2016-11-01] MEDS ORDERED: Influenza Virus Vaccine (Afluria Inactive dont use ) IM ONE (10:00)
[2016-11-01] MEDS ORDERED: Propofol 10 mg/ml Inj (20 ML) ONE (10:41)
[2016-11-01] MEDS ORDERED: ePHEDrine 50 mg/ml Inj ONE ×2 (10:42→12:51)
[2016-11-01] MEDS ORDERED: Phenylephrine 10 mg/ml Inj ONE (10:42)
[2016-11-01] MEDS ORDERED: Succinylcholine Chloride 20 mg/ml Syr (5 ml) IV ONE (10:42)
[2016-11-01] MEDS ORDERED: Bacitracin 150,000 UNIT in Sodium Chloride 0.9% Irrig 3,000 ML IR SCH (11:00)
[2016-11-01] MEDS ORDERED: Morphine 1 mg/ml preservative-free Inj(Duramorph) ONE (11:03)
[2016-11-01] MEDS ORDERED: Lactated Ringer's 1,000 ML IV ONE ×2 (11:35)
[2016-11-01] MEDS ORDERED: Morphine 1 mg/ml preservative-free Inj(Duramorph) IT ONE (11:45)
[2016-11-01] MEDS ORDERED: Midazolam 2 MG/2 ML VIAL ONE (11:59)
[2016-11-01] MEDS ORDERED: Rocuronium 10 mg/ml (10 ml) ONE (13:10)
--- NOTE | 2016-11-01 13:17 | CARD ---
APPROVED REPORT EXAM: Two-dimensional and M-mode echocardiogram with Doppler and color Doppler. Other Information Quality : GoodRhythm : NSR INDICATION Pre-Op Chest Pain RISK FACTORS Hypertension Hyperlipidemia Diabetes M-Mode DIMENSIONS RVDd1.91 (2.1-3.2cm)Left Atrium (MM)2.50 (2.5-4.0cm) IVSd0.66 (0.7-1.1cm)Aortic Root2.06 (2.2-3.7cm) LVDd4.30 (4.0-5.6cm)Aortic Cusp Exc.1.56 (1.5-2.0cm) PWd0.70 (0.7-1.1cm)FS (%) 46 % LVDs2.30 (2.0-3.8cm)LVEF (%)78 (>50%) Mitral Valve MV E Mmyverdl939.7cm/sMV A Lzptzkvi80.3cm/sE/A ratio1.5 TDI E/Lateral E'0.0E/Medial E'0.0 Tricuspid Valve TR Peak Yjeiqjry897my/sTR Peak Gr.[id number] LEFT VENTRICLE The left ventricle is normal size. There is normal left ventricular wall thickness. The left ventricular function is normal. The left ventricular ejection fraction is within the normal range. No regional wall motion abnormalities noted. Transmitral Doppler flow pattern is Grade II-pseudonormal filling dynamics. No left ventricle thrombus noted on this study. There is no ventricular septal defect visualized. There is no left ventricular aneurysm. There is no mass noted in the left ventricle. RIGHT VENTRICLE The right ventricle is normal size. There is normal right ventricular wall thickness. The right ventricular systolic function is normal. ATRIA The left atrium size is normal. The right atrium size is normal. The interatrial septum is intact with no evidence for an atrial septal defect. AORTIC VALVE The aortic valve is mildly sclerotic. No aortic regurgitation is present. There is no aortic valvular stenosis. There is no aortic valvular vegetation. MITRAL VALVE The mitral valve is normal in structure and function. There is no evidence of mitral valve prolapse. There is no mitral valve stenosis. Mitral regurgitation is trace to mild. TRICUSPID VALVE The tricuspid valve is normal in structure and function. There is trace to mild tricuspid regurgitation. There is no tricuspid valve prolapse or vegetation. There is no tricuspid valve stenosis. PULMONIC VALVE The pulmonary valve is normal in structure and function. There is no pulmonic valvular regurgitation. There is no pulmonic valvular stenosis. GREAT VESSELS The aortic root is normal in size. The ascending aorta is normal in size. The IVC is normal in size and collapses >50% with inspiration. PERICARDIAL EFFUSION The pericardium appears normal. There is no pleural effusion. <Conclusion> The left ventricular ejection fraction is within the normal range. Transmitral Doppler flow pattern is Grade II-pseudonormal filling dynamics. Mitral regurgitation is trace to mild. There is trace to mild tricuspid regurgitation.
--- NOTE | 2016-11-01 14:50 | PCM.SURG1 ---
Surgeon's Initial Post Op Note - Surgeon's Notes Surgeon: Dylon Administrator: Silvia Quick PA-C/ 2nd assist PARISH Dela Cruz Type of Anesthesia: General Endo, Spinal Anesthesia Administered By: DR Sahra Matamoros Pre-Operative Diagnosis: comminuted/displaced subcapital femur fx. preexisting primary O/A R hip Operative Findings: as above Post-Operative Diagnosis: as above Operation Performed: R THR ( anterior approach). ORIF femoral neck fx. autograft bone graft. femoral neck osteotomy Specimen/Specimens Removed: fx callous/femroal head/acetabular reamings Estimated Blood Loss: EBL {In ML}: 200 Blood Products Given: N/A Drains Used: No Drains Post-Op Condition: Fair Date of Surgery/Procedure: 11/01/16 Time of Surgery/Procedure: 12:45 (time in room 11:35)
[2016-11-01] MEDS ORDERED: Oxycodone/Acetaminophen 5/325 mg Tab PO PRN (15:28)
[2016-11-01] MEDS ORDERED: DiphenhydrAMINE 50 mg/ml Inj IVP PRN (15:30)
[2016-11-01] MEDS ORDERED: HYDROmorphone 0.5 mg/0.5 ml ISec IVP PRN (15:32)
[2016-11-01] MEDS ORDERED: Lactated Ringer's 1,000 ML IV SCH (15:45)
[2016-11-01] MEDS: ceFAZolin IV 1 gm in Dextrose 1 GM/50 ML BAG IVPB SCH ×2 (16:47→22:30)
--- NOTE | 2016-11-01 18:02 | RAD ---
PROCEDURE: Right hip radiographs HISTORY: Status post right THR COMPARISON: None TECHNIQUE: Standard protocol for this study/examination. FINDINGS: Unremarkable appearance of femoral and acetabular components right CORIE. Expected postoperative findings in the soft tissues right thigh. IMPRESSION: Satisfactory postoperative status.
[2016-11-01] MEDS: Sodium Chloride 0.9% 1,000 ML IV SCH (21:08)
[2016-11-02] MEDS: Piperacill/Tazo 3.375gm in Dex 3.375 GM/50 ML BAG IVPB SCH ×4 (05:03→22:02)
[2016-11-02 07:41] LABS: MEAN CELL VOLUME 90.4 fL (81.0-99.0); MEAN CORPUSCULAR HEMOGLOBIN 30.7 pg (27.0-31.0); MEAN PLATELET VOLUME 10.1 fL (7.2-11.7); RED CELL DISTRIBUTION WIDTH 12.4 % (11.5-14.5); WHITE BLOOD COUNT 7.9 K/uL (4.8-10.8)
[2016-11-02] MEDS: (Novolin R) Insulin Human Regular 100 units/ml vial SC SCH ×4 (07:51→22:10)
[2016-11-02 08:03] LABS: CHLORIDE 101 mmol/L (98-107); POTASSIUM 4.3 mmol/L (3.6-5.2); SODIUM 142 mmol/L (132-148)
[2016-11-02 08:06] LABS: BLOOD UREA NITROGEN 17 mg/dL (7-17); CALCIUM 8.1 mg/dl (8.6-10.4); CARBON DIOXIDE 27 mmol/L (22-30); GFR AFRICAN-AMERICAN > 60; GLUCOSE,RANDOM 142 mg/dL (65-105)
--- NOTE | 2016-11-02 09:11 | CP.PCM.PN ---
Subjective - Date & Time of Evaluation Date of Evaluation: 11/02/16 Time of Evaluation: 09:11 - Subjective Subjective: Patient was seen and examined at bedside. She reports having a lot of pain in her right lower extremity that worsens with movement. She denies having chest pain, abdominal pain, shortness of breath, nausea, vomiting, and fevers. Objective - Vital Signs/Intake and Output Vital Signs (last 24 hours): Temp Pulse Resp BP Pulse Ox 98.9 F 85 20 117/64 99 11/02/16 08:00 11/02/16 08:00 11/02/16 08:00 11/02/16 08:00 11/02/16 08:00 - Medications Medications: Current Medications Aspirin (Ecotrin) 81 mg PO BID [facility] Diphenhydramine HCl (Benadryl) 25 mg IVP Q6H PRN PRN Reason: Itching / Pruritus Docusate Sodium (Colace) 100 mg PO BID [facility] Last Admin: 11/01/16 18:13 Dose: Not Given Enalapril Maleate (Vasotec) 10 mg PO DAILY [facility] Last Admin: 11/01/16 10:00 Dose: Not Given Famotidine (Pepcid) 20 mg PO BID [facility] Last Admin: 11/01/16 18:14 Dose: Not Given Piperacillin Sod/Tazobactam Sod (Zosyn 3.375 Gm Iv Premix) 3.375 gm in 50 mls @ 100 mls/hr IVPB Q6H [facility] Last Admin: 11/02/16 08:56 Dose: 100 mls/hr Sodium Chloride (Sodium Chloride 0.45%) 1,000 mls @ 50 mls/hr IV .Q20H [facility] Last Admin: 10/31/16 21:06 Dose: 50 mls/hr Sodium Chloride (Sodium Chloride 0.9%) 1,000 mls @ 50 mls/hr IV .Q20H [facility] Stop: 11/03/16 07:29 Last Admin: 11/01/16 21:08 Dose: 50 mls/hr Lactated Ringer's (Lactated Ringer's) 1,000 mls @ 75 mls/hr IV .[id number] [facility] Last Admin: 11/02/16 05:14 Dose: Not Given Insulin Human Regular (Novolin R) 0 unit SC ACHS [facility] PRN Reason: Protocol Last Admin: 11/02/16 07:51 Dose: Not Given Morphine Sulfate (Morphine) 2 mg IVP Q4H PRN PRN Reason: Pain, moderate (4-7) Last Admin: 10/30/16 16:24 Dose: 2 mg Morphine Sulfate (Morphine) 4 mg IVP Q4 PRN PRN Reason: Pain, severe (8-10) Last Admin: 10/30/16 12:29 Dose: 4 mg Ondansetron HCl (Zofran Inj) 4 mg IVP Q6H PRN PRN Reason: Nausea/Vomiting Last Admin: 11/01/16 17:27 Dose: 4 mg Oxycodone/Acetaminophen (Percocet 5/325 Mg Tab) 1 tab PO Q4 PRN PRN Reason: Pain, Mild (1-3) Stop: 11/04/16 15:29 Rosuvastatin Calcium (Crestor) 40 mg PO HS [facility] Last Admin: 11/01/16 21:16 Dose: Not Given - Labs Labs: 11/02/16 07:26 11/02/16 07:26 PT 13.0 SECONDS (9.7-12.2) H 11/01/16 06:11 INR 1.2 11/01/16 06:11 APTT 34 SECONDS (21-34) 10/28/16 14:51 - Head Exam Head Exam: ATRAUMATIC, NORMAL INSPECTION - Eye Exam Eye Exam: EOMI, Normal appearance - ENT Exam ENT Exam: Mucous Membranes Moist - Respiratory Exam Respiratory Exam: Clear to Ausculation Bilateral, NORMAL BREATHING PATTERN. absent: Rhonchi, Wheezes, Respiratory Distress - Cardiovascular Exam Cardiovascular Exam: REGULAR RHYTHM, +S1, +S2 - GI/Abdominal Exam GI & Abdominal Exam: Soft, Normal Bowel Sounds. absent: Distended, Tenderness - Extremities Exam Extremities Exam: Tenderness (RLE; extending from hip down to feet. ). absent: Pedal Edema - Neurological Exam Neurological Exam: Alert, Awake, Oriented x3 - Psychiatric Exam Psychiatric exam: Normal Mood - Skin Skin Exam: Dry, Intact, Normal Color, Warm Assessment and Plan (1) Platelet dysfunction Assessment & Plan: 70 year old female with past medical history of DM, HTN, HLD, and arthritis, s/ p right total hip replacement (POD#1). Patient has a platelet dysfunction secondary to custodial use of Plavix. Platelet function test was ordered and results were 208. Patient may restart antiplatelet therapy today. Status: Acute
--- NOTE | 2016-11-02 09:36 | OP ---
PROCEDURE DATE: 11/01/2016 PREOPERATIVE DIAGNOSES: 1. Pathologic (in the sense osteopenia) pathologic displaced basicervical intertrochanteric femur fracture. 2. Preexisting osteoarthritis of the right hip. POSTOPERATIVE DIAGNOSES: 1. Displaced comminuted pathologic basicervical fracture of the right hip. 2. Preexisting osteoarthritis of the right hip. PROCEDURES: 1. Right total hip replacement arthroplasty, anterior approach. 2. Open reduction of the proximal femoral neck fracture. 3. Femoral neck osteotomy. 4. Release of psoas tendon. 5. Autograft bone graft. SURGEON: Johny Osborne MD CARDIOLOGY TECHNOLOGIST: Leanne Quick PA-C [employer] SPECIALIST: DAYLIN Joseph TYPE OF ANESTHESIA: Spinal and general anesthesia. ANESTHESIOLOGIST: Sahra Matamoros MD ESTIMATED BLOOD LOSS: 200 mL. COMPLICATIONS: No complications. DRAINS: No drains. OPERATIVE INDICATIONS: Chrissy Parrish is a 70-year-old woman who presents after a fall at home. The patient presents with inability to ambulate to the emergency room at [facility]. The patient was stabilized, was to be taken to surgery on Sunday. The patient had a urinary tract infection with beta-hemolytic strep. As a result, the surgery was delayed. Pros, cons, risks, and benefits of hip replacement and arthroplasty discussed at length with the patient's daughter and the patient, with her daughterStacey being the and transportation specialist. Possibility of mechanical failure, infection, leg length inequality, nerve injury, secondary or tertiary surgery is discussed. The concept that the total hip replacement arthroplasty will be accomplished probably with supplemental fixation of the proximal femoral neck is discussed. No promises or guarantees. OPERATIVE PROCEDURE: After having obtained informed consent in the above fashion, after having identified site, side, and procedure, and a clinical pause/time-out, after a satisfactory induction of the anesthetic, the patient identified as Chrissy Parrish, in the supine position with all bony prominences well padded, the right lower extremity was placed in the AMIS positioner and with the AMIS traction. All bony prominences were well padded. Under the surgeon's direction, the fluoroscope was positioned, video images were generated, therapeutic decisions were made there from. This having been accomplished, again under the surgeon's direction, the fluoroscope is positioned. Video images of the fracture obtained and therapeutic decisions are made there from. This having been accomplished, the right lower extremity was prepped and redraped. Topographic anatomy of the hip is marked for the anterior Hueter approach. The anterior superior iliac spine one fingerbreadth distal and three fingerbreadths posterior is marked. The tensor fasciae femoris muscle is palpated. This having been accomplished, after having identified site, side, and procedure, a clinical pause/time-out, incision described approximately 4.5-inch in extent, skin incision was carried out from the skin, subcutaneous tissue, the fascia was divided. The Allis clamp was placed on the divided fascia of the tensor fasciae femoris muscle. The tensor fasciae femoris muscle was taken down. The Medacta retractor modified Sebastian retractor was identified. The posterior border of the rectus femoris was identified and was carefully divided. Hemostasis was controlled proximally. The reflected head of rectus femoris was divided and the Medacta retractor was placed deeper. The fascia was identified. The reflected head of the rectus femoris is divided and the anterior branches of the lateral femoral circumflex vessels were identified, transected, and ligated with silk ties. This having been accomplished, with the lower extremity in abduction, the gluteus minimus tendon is identified and the reflected head of rectus femoris is identified and released. This having been accomplished, the triangular capsulotomy is accomplished using the electrocautery. The intertrochanteric tubercle is identified, traction is applied to help reduce the hip and the triangular flap is elevated. This is tagged, and at this point in time, the Medacta retractors were placed medially and laterally after packing of the posterior aspect with a sponge. The femoral neck osteotomy was accomplished. There was found to be comminution of the femoral neck, which open reduction internal fixation will address. At this point in time, having accomplished same with the extravening 15 degrees of internal rotation, the capsulotomy was completed and is turned back to neutral position. Femoral neck osteotomy is carefully planned and accomplished intraoperatively and virtually. This having been accomplished, with further external rotation, the cuff femoral neck identified and is rotated with a 0.5-inch curved osteotome. The Corkscrew was placed, the femoral head was removed and incised through approximately 43 mm. The was excised, anterior and posterior labrum was excised, and this having been accomplished, sequential reaming was accomplished at approximately 45 degrees of abduction and 15 degrees of anteversion. Sequential reaming was carried out through 48 mm reamer. The reamings were denuded of articular cartilage and kept for autograft bone graft into the acetabulum. This having been accomplished, the autograft bone graft of the acetabulum was accomplished. The 48 mm cuff was impacted in the appropriate 45 degrees of abduction and 15 degrees of anteversion, position is found to be excellent. Border osteophytes were debrided. This having been accomplished, the iliofemoral ligament is divided, the ischiofemoral ligament is carefully divided. The piriformis tendon is left intact and the pubofemoral ligament is incised and released from the neck of the femur. A portion of the neck is found to be fractured. An open treatment of this femoral neck fracture is accomplished at this point in time. The canal was found using the rat tip rasp and sequential broaching was carried out through a #3 femoral component. At this point, verification of position is offered on image intensification views. This having been accomplished, the #3 broach is trailed with a -3.5 head, 28 mm, and 48 mm outer bearing. The construct was found to be stable. The iliopsoas tendon was released and the pubofemoral ligament insertion to the femoral neck is released. Open reduction of femoral neck aspect of the fracture was accomplished. With cerclage suture, having trailed the #3, femoral component was impacted, -3.5 ceramic head, the 48 mm outer bearing was fixed. The hip was reduced and found to be stable on all plains. It should be noted prior to acetabular component impaction and introduction, autograft bone graft into the acetabulum was accomplished with autograft bone graft from the reamings denuded articular cartilage. The hip was reduced and stable on all plains. Open reduction and internal fixation of the femoral neck aspect of the fracture, which is very osteopenic was accomplished and sutured. The iliopsoas tendon is released. The wound is thoroughly irrigated. Closure was in layers; the tensor fasciae femoris with 0 Quill, followed by 2-0 Vicryl eric of skin. Hemostasis was controlled. Blood loss 200 mL. No complications. No drains. Postoperative x-rays revealed acceptable position of the construct. Johny Osborne MD [facility] # [id number]
[2016-11-02] MEDS: Morphine 4 MG/ML VIAL IVP PRN (09:46)
[2016-11-02] MEDS: Sodium Chloride 0.9% 1,000 ML IV SCH (10:00)
--- NOTE | 2016-11-02 11:53 | CARD ---
APPROVED REPORT EKG Measurement Heart [id number] <Conclusion> Normal sinus rhythm Low voltage QRS Borderline ECG
--- NOTE | 2016-11-02 11:58 | CARD ---
APPROVED REPORT EKG Measurement Heart [id number] <Conclusion> Normal sinus rhythm Low voltage QRS Borderline ECG
--- NOTE | 2016-11-02 13:47 | CP.PCM.PN ---
<Phoebe Dykes - Last Filed: 11/02/16 13:49> Subjective - Date & Time of Evaluation Date of Evaluation: 11/02/16 Time of Evaluation: 13:44 - Subjective Subjective: Internal Medicine Progress Note for Dr. Romero Patient seen and examined at bedside. No acute events overnight. Patient tolerated ORIF. Patient is tolerating pain well but states she feels pain on her right hip. Per nursing, patient doesn't ask for pain medication even when patient is in pain. Explained to patient and daughter that patient has pain medication ordered and can ask for pain if people needs pain medication. Patient denies any fever, chills, no urinary issues, no dysuria. Patient denies bowel movement, patient admitted to flatus. Objective - Vital Signs/Intake and Output Vital Signs (last 24 hours): Temp Pulse Resp BP Pulse Ox 98.9 F 85 20 110/70 99 11/02/16 08:00 11/02/16 08:00 11/02/16 08:00 11/02/16 10:54 11/02/16 08:00 - Medications Medications: Current Medications Aspirin (Ecotrin) 81 mg PO BID [facility] Last Admin: 11/02/16 10:55 Dose: 81 mg Diphenhydramine HCl (Benadryl) 25 mg IVP Q6H PRN PRN Reason: Itching / Pruritus Docusate Sodium (Colace) 100 mg PO BID [facility] Last Admin: 11/02/16 10:55 Dose: 100 mg Enalapril Maleate (Vasotec) 10 mg PO DAILY [facility] Last Admin: 11/02/16 10:54 Dose: 10 mg Famotidine (Pepcid) 20 mg PO BID [facility] Last Admin: 11/02/16 10:54 Dose: 20 mg Piperacillin Sod/Tazobactam Sod (Zosyn 3.375 Gm Iv Premix) 3.375 gm in 50 mls @ 100 mls/hr IVPB Q6H [facility] Stop: 11/03/16 23:59 Last Admin: 11/02/16 08:56 Dose: 100 mls/hr Sodium Chloride (Sodium Chloride 0.45%) 1,000 mls @ 50 mls/hr IV .Q20H [facility] Last Admin: 10/31/16 21:06 Dose: 50 mls/hr Sodium Chloride (Sodium Chloride 0.9%) 1,000 mls @ 50 mls/hr IV .Q20H [facility] Stop: 11/03/16 07:29 Last Admin: 11/01/16 21:08 Dose: 50 mls/hr Lactated Ringer's (Lactated Ringer's) 1,000 mls @ 75 mls/hr IV .[id number] [facility] Last Admin: 11/02/16 05:14 Dose: Not Given Insulin Human Regular (Novolin R) 0 unit SC ACHS [facility] PRN Reason: Protocol Last Admin: 11/02/16 12:10 Dose: 2 unit Morphine Sulfate (Morphine) 2 mg IVP Q4H PRN PRN Reason: Pain, moderate (4-7) Last Admin: 10/30/16 16:24 Dose: 2 mg Morphine Sulfate (Morphine) 4 mg IVP Q4 PRN PRN Reason: Pain, severe (8-10) Last Admin: 11/02/16 09:46 Dose: 4 mg Ondansetron HCl (Zofran Inj) 4 mg IVP Q6H PRN PRN Reason: Nausea/Vomiting Last Admin: 11/01/16 17:27 Dose: 4 mg Oxycodone/Acetaminophen (Percocet 5/325 Mg Tab) 1 tab PO Q4 PRN PRN Reason: Pain, Mild (1-3) Stop: 11/04/16 15:29 Rosuvastatin Calcium (Crestor) 40 mg PO HS [facility] Last Admin: 11/01/16 21:16 Dose: Not Given - Labs Labs: 11/02/16 07:26 11/02/16 07:26 PT 13.0 SECONDS (9.7-12.2) H 11/01/16 06:11 INR 1.2 11/01/16 06:11 APTT 34 SECONDS (21-34) 10/28/16 14:51 - Constitutional Appears: Non-toxic - Head Exam Head Exam: NORMAL INSPECTION - Eye Exam Eye Exam: absent: EOMI, Normal appearance - ENT Exam ENT Exam: Mucous Membranes Moist. absent: Mucous Membranes Dry - Neck Exam Neck Exam: Full ROM. absent: Tenderness - Respiratory Exam Respiratory Exam: Clear to Ausculation Bilateral, NORMAL BREATHING PATTERN. absent: Accessory Muscle Use, Respiratory Distress - Cardiovascular Exam Cardiovascular Exam: REGULAR RHYTHM. absent: Bradycardia, Tachycardia - GI/Abdominal Exam GI & Abdominal Exam: Soft. absent: Tenderness - Extremities Exam Additional comments: bandage on right hip, c/d/i, no drainage capillary refill of right and left feet 2+, extremities warm to touch, no hematoma, induration, erythema noted bilaterally - Neurological Exam Neurological Exam: Alert, Awake, Oriented x3 - Psychiatric Exam Psychiatric exam: Normal Affect, Normal Mood - Skin Skin Exam: Dry, Intact, Normal Color, Warm Assessment and Plan - Assessment and Plan (Free Text) Assessment: (1) Hip fracture, right Assessment and Plan: * Orthopedic consult placed- Dr. Osborne- help appreciated. * Cancelled OR in light of positive urine culture 10/30/16 * Anticoagulation per surgery * Surgery management including preoperative, intraoperative, and postoperative per surgery * Cardiology-- Dr. Valladares-->help appreciated * Per cardiology, patient is at intermediate risk for planned surgery. Asymptomatic. Not in CHF. No significant valvular stenos on examination. No cardiovascular contraindication to planned surgery Recommend for post-op troponin and EKG and Hgb>10 * Procedure cancelled in light of positive urine culture 10/30; recommended for ID consult, and concern for bleeding given recent Plavix use * Platelet function test 208 on 10/30-->per heme-onc, stable from their standpoint to proceed to OR tomorrow * Rescheduled for 11/01/16. DVT ppx resumed by orthopedic. * Morphine 2 mg IVP Q4H PRN for moderate pain * Morphine 4 mg IVP Q4H PRN for severe pain * Imaging: Hip CT 10/28/16 shows Intertrochanteric fracture seen through the right proximal femur at the base of the right femoral neck. Distraction at the fracture site. Additional fracture deformity through base of the right greater trochanter with comminution at that level. Heterotopic bone formation at the level of the greater trochanter. * Tib/Fib Xray R 10/28/16 shows no evidence of acute displaced fracture or dislocation of the visualized tibia and fibula. (2) Status post fall Assessment and Plan: * As per patient and daughter, patient did not hit her head. * No evidence of head trauma on physical exam. * No CT head at this time. * A/P for right hip fractures as above. (3) Chest pain Assessment and Plan: * Asymptomatic * Health Clinician Dr. Valladares consulted for cardiac clearance- help appreciated * Per cardiology, patient is at intermediate risk for planned surgery. Asymptomatic. Not in CHF. No significant valvular stenos on examination. No cardiovascular contraindication to planned surgery Recommend for post-op troponin and EKG and Hgb>10 * Off Plavix since admission-->when patient has surgery; will need to follow-up with ortho to determine when to restart plavix * Pending echocardiogram official read * EKG: NSR X3; ENOCH negative X3. * Crestor 40 mg PO HS started * Hold Plavix in anticipation of planned surgery * Morphine IVP Q4H PRN for pain * f/u 2D ECHO-->pending * Hgb A1C: 7.5 * (4) Renal insufficiency Assessment and Plan: * Monitor BUN/Cr * on Admission Patient given IVF in the ED * BP became elevated, IV hydration given, Improved 10/07 (5) HTN (hypertension) Assessment and Plan: * Enalapril 10mg PO daily * Monitor BP and add medications as needed. (6) Diabetes Assessment and Plan: Random glucose 148. * Start low dose insulin sliding scale * Hold home med Metformin 500mg PO daily for now * Hold home med Invokana 300 mg PO daily for now Accuchecks ACHS Consistent Carb/Heart Healthy Diet Hgb A1C: 7.5 (7) PVD Assessment and Plan: * Patient had balloon angioplasty of right SFA with Dr. Coto in 2014. * Patient takes Plavix 75 mg PO daily and Crestor 40 mg PO daily at home--> plavix held on admission in light of hip surgery Prophylactic measure Assessment and Plan: * Anticoagulation Heparin 5000 SC Q8H on held for procedure, plavix on hold * SCD left LE * Pepcid 20 mg PO BID * Bed rest for now with fall risk precautions Status: Acute follow up post operatively. continue anticoagulation per Ortho 11/02 restart plavix 75mg POQD <Amy Romero V - Last Filed: 11/02/16 17:25> Objective - Vital Signs/Intake and Output Vital Signs (last 24 hours): Temp Pulse Resp BP Pulse Ox 98.1 F 65 20 116/67 96 11/02/16 15:00 11/02/16 15:00 11/02/16 15:00 11/02/16 15:00 11/02/16 15:00 Intake and Output: 11/02/16 11/02/16 06:59 18:59 Intake Total 650 Balance 650 - Medications Medications: Current Medications Aspirin (Ecotrin) 81 mg PO BID [facility] Last Admin: 11/02/16 10:55 Dose: 81 mg Clopidogrel Bisulfate (Plavix) 75 mg PO DAILY [facility] Last Admin: 11/02/16 14:34 Dose: 75 mg Diphenhydramine HCl (Benadryl) 25 mg IVP Q6H PRN PRN Reason: Itching / Pruritus Docusate Sodium (Colace) 100 mg PO BID [facility] Last Admin: 11/02/16 10:55 Dose: 100 mg Enalapril Maleate (Vasotec) 10 mg PO DAILY [facility] Last Admin: 11/02/16 10:54 Dose: 10 mg Famotidine (Pepcid) 20 mg PO BID [facility] Last Admin: 11/02/16 10:54 Dose: 20 mg Piperacillin Sod/Tazobactam Sod (Zosyn 3.375 Gm Iv Premix) 3.375 gm in 50 mls @ 100 mls/hr IVPB Q6H [facility] Stop: 11/03/16 23:59 Last Admin: 11/02/16 14:38 Dose: 100 mls/hr Sodium Chloride (Sodium Chloride 0.45%) 1,000 mls @ 50 mls/hr IV .Q20H [facility] Last Admin: 10/31/16 21:06 Dose: 50 mls/hr Sodium Chloride (Sodium Chloride 0.9%) 1,000 mls @ 50 mls/hr IV .Q20H [facility] Stop: 11/03/16 07:29 Last Admin: 11/02/16 10:00 Dose: Not Given Lactated Ringer's (Lactated Ringer's) 1,000 mls @ 75 mls/hr IV .[id number] [facility] Last Admin: 11/02/16 05:14 Dose: Not Given Insulin Human Regular (Novolin R) 0 unit SC ACHS [facility] PRN Reason: Protocol Last Admin: 11/02/16 12:10 Dose: 2 unit Morphine Sulfate (Morphine) 2 mg IVP Q4H PRN PRN Reason: Pain, moderate (4-7) Last Admin: 10/30/16 16:24 Dose: 2 mg Morphine Sulfate (Morphine) 4 mg IVP Q4 PRN PRN Reason: Pain, severe (8-10) Last Admin: 11/02/16 09:46 Dose: 4 mg Ondansetron HCl (Zofran Inj) 4 mg IVP Q6H PRN PRN Reason: Nausea/Vomiting Last Admin: 11/02/16 17:01 Dose: 4 mg Oxycodone/Acetaminophen (Percocet 5/325 Mg Tab) 1 tab PO Q4 PRN PRN Reason: Pain, Mild (1-3) Stop: 11/04/16 15:29 Rosuvastatin Calcium (Crestor) 40 mg PO HS [facility] Last Admin: 11/01/16 21:16 Dose: Not Given - Labs Labs: 11/02/16 07:26 11/02/16 07:26 PT 13.0 SECONDS (9.7-12.2) H 11/01/16 06:11 INR 1.2 11/01/16 06:11 APTT 34 SECONDS (21-34) 10/28/16 14:51 Attending/Attestation - Attestation I have personally seen and examined this patient.: Yes I have fully participated in the care of the patient.: Yes I have reviewed all pertinent clinical information, including history, physical exam and plan: Yes Notes (Text): Patient seen, examined, and case discussed with day-time resident. Patient seen this morning with daughter at bedside. Patient in good spirits. Patient has +flatus, has not had a bowel movement, patient has pain over the right hip pain but informed by resident on heme-onc patient is not asking for pain medications. Spoke with patient's nurse Anjana who is [employer] speaking as well to let her know patient is shy to ask for pain medication. Discussed with ortho-PALeanne, patient may restart her plavix per ortho standpoint. Will come to evaluate the patient around 4pm today. For anticoagulation post-procedure, Aspirin 81mg PO daily Patient's repeat urine culture prior to surgery shows no growth. Patient is on Zosyn (active since 10/30/16). Afebrile and no elevated white count post- procedure. Ordered for ENOCH and EKG per cardiology recommendation for post-procedure. Patient's Hgb is at 10. If drops tomorrow will transfuse. Assessment/Plan (1) Hip fracture, right Assessment and Plan: * Orthopedic consult placed- Dr. Osborne- help appreciated. * Cancelled OR in light of positive urine culture 10/30/16 * Anticoagulation per surgery-->ok to restart Plavix 11/01 and start Aspirin 81mg PO daily for anticoagulation post procedure * Surgery management including preoperative, intraoperative, and postoperative per surgery * Cardiology-- Dr. Valladares-->help appreciated * Per cardiology, patient is at intermediate risk for planned surgery. Asymptomatic. Not in CHF. No significant valvular stenos on examination. No cardiovascular contraindication to planned surgery Recommend for post-op troponin and EKG and Hgb>10 * Procedure cancelled in light of positive urine culture 10/30; recommended for ID consult, and concern for bleeding given recent Plavix use * Platelet function test 208 on 10/30-->per heme-onc, stable from their standpoint to proceed to OR 11/01 * 11/01: Right total hip replacement arthroplasty, anterior approach, open reduction of the proximal femoral neck fracture, femoral neck osteotomy, release of psoas tendon, autograft bone graft * Pain PRN * Oxycodone/tylenol 1 tab PO Q4 PRN * Morphine 2mg IV Q 4hour PRN pain * * NS 50cc/hr * Imaging: Hip CT 10/28/16 shows Intertrochanteric fracture seen through the right proximal femur at the base of the right femoral neck. Distraction at the fracture site. Additional fracture deformity through base of the right greater trochanter with comminution at that level. Heterotopic bone formation at the level of the greater trochanter. * Tib/Fib Xray R 10/28/16 shows no evidence of acute displaced fracture or dislocation of the visualized tibia and fibula. Status: Acute (2) Status post fall Assessment and Plan: * As per patient and daughter, patient did not hit her head. * No evidence of head trauma on physical exam. * No CT head at this time. * A/P for right hip fractures as above. Status: Acute (3) Chest pain Assessment and Plan: * Asymptomatic * Health Clinician Dr. Valladares consulted for cardiac clearance- help appreciated * Per cardiology, patient is at intermediate risk for planned surgery. Asymptomatic. Not in CHF. No significant valvular stenos on examination. No cardiovascular contraindication to planned surgery Recommend for post-op troponin and EKG and Hgb>10 * Off Plavix since admission-->when patient has surgery; will need to follow-up with ortho to determine when to restart plavix * Pending echocardiogram official read * EKG: NSR X3; ENOCH negative X3. * Crestor 40 mg PO HS started * Morphine IVP Q4H PRN for pain * 2D ECHO: left ventricular ejection fraction is within the normal fange. Mitral regurgitation is trace to mild trace to mild tricupsid regurgitation * Hgb A1C: 7.5 Status: Resolved (4) Renal insufficiency Assessment and Plan: * Monitor BUN/Cr * on Admission Patient given IVF in the ED. BP became elevated. * Start gentle IV hydration 10/30-11/03 Status: Resolved (5) HTN (hypertension) Assessment and Plan: * Enalapril 10mg PO daily * Monitor BP and add medications as needed. Status: Chronic (6) Diabetes Assessment and Plan: Random glucose 148. * Start low dose insulin sliding scale * Hold home med Metformin 500mg PO daily for now * Hold home med Invokana 300 mg PO daily for now Accuchecks ACHS Consistent Carb/Heart Healthy Diet Hgb A1C: 7.5 Status: Chronic (7) PVD Assessment and Plan: * Patient had balloon angioplasty of right SFA with Dr. Coto in 2014. * Patient takes Plavix 75 mg PO daily and Crestor 40 mg PO daily at home--> plavix held on admission in light of hip surgery * Per ortho and heme-onc, patient to restart Plavix 75mg PO daily (home med) and Aspirin 81mg PO daily for anticoagulation Status: Chronic (8) Prophylactic measure Assessment and Plan: * Anticoagulation per orthopedic * Aspirin 81mg PO daily * May permit plavix 75mg PO daily (home medication) * SCD left LE * Pepcid 20 mg PO BID * Bed rest for now with fall risk precautions Status: Acute
--- NOTE | 2016-11-02 16:52 | CP.PCM.PN ---
Subjective - Date & Time of Evaluation Date of Evaluation: 11/02/16 Time of Evaluation: 16:50 - Subjective Subjective: Patient c/o nausea, just given medication. little appetite. Pain controlled with medication. Denies CP/SOB/dizziness/numbness/tingling. Objective - Vital Signs/Intake and Output Vital Signs (last 24 hours): Temp Pulse Resp BP Pulse Ox 98.1 F 65 20 116/67 96 11/02/16 15:00 11/02/16 15:00 11/02/16 15:00 11/02/16 15:00 11/02/16 15:00 Intake and Output: 11/02/16 11/02/16 06:59 18:59 Intake Total 650 Balance 650 - Medications Medications: Current Medications Aspirin (Ecotrin) 81 mg PO BID [facility] Last Admin: 11/02/16 10:55 Dose: 81 mg Clopidogrel Bisulfate (Plavix) 75 mg PO DAILY [facility] Last Admin: 11/02/16 14:34 Dose: 75 mg Diphenhydramine HCl (Benadryl) 25 mg IVP Q6H PRN PRN Reason: Itching / Pruritus Docusate Sodium (Colace) 100 mg PO BID [facility] Last Admin: 11/02/16 10:55 Dose: 100 mg Enalapril Maleate (Vasotec) 10 mg PO DAILY [facility] Last Admin: 11/02/16 10:54 Dose: 10 mg Famotidine (Pepcid) 20 mg PO BID [facility] Last Admin: 11/02/16 10:54 Dose: 20 mg Piperacillin Sod/Tazobactam Sod (Zosyn 3.375 Gm Iv Premix) 3.375 gm in 50 mls @ 100 mls/hr IVPB Q6H [facility] Stop: 11/03/16 23:59 Last Admin: 11/02/16 14:38 Dose: 100 mls/hr Sodium Chloride (Sodium Chloride 0.45%) 1,000 mls @ 50 mls/hr IV .Q20H [facility] Last Admin: 10/31/16 21:06 Dose: 50 mls/hr Sodium Chloride (Sodium Chloride 0.9%) 1,000 mls @ 50 mls/hr IV .Q20H [facility] Stop: 11/03/16 07:29 Last Admin: 11/02/16 10:00 Dose: Not Given Lactated Ringer's (Lactated Ringer's) 1,000 mls @ 75 mls/hr IV .[id number] [facility] Last Admin: 11/02/16 05:14 Dose: Not Given Insulin Human Regular (Novolin R) 0 unit SC ACHS [facility] PRN Reason: Protocol Last Admin: 11/02/16 12:10 Dose: 2 unit Morphine Sulfate (Morphine) 2 mg IVP Q4H PRN PRN Reason: Pain, moderate (4-7) Last Admin: 10/30/16 16:24 Dose: 2 mg Morphine Sulfate (Morphine) 4 mg IVP Q4 PRN PRN Reason: Pain, severe (8-10) Last Admin: 11/02/16 09:46 Dose: 4 mg Ondansetron HCl (Zofran Inj) 4 mg IVP Q6H PRN PRN Reason: Nausea/Vomiting Last Admin: 11/01/16 17:27 Dose: 4 mg Oxycodone/Acetaminophen (Percocet 5/325 Mg Tab) 1 tab PO Q4 PRN PRN Reason: Pain, Mild (1-3) Stop: 11/04/16 15:29 Rosuvastatin Calcium (Crestor) 40 mg PO HS [facility] Last Admin: 11/01/16 21:16 Dose: Not Given - Labs Labs: 11/02/16 07:26 11/02/16 07:26 PT 13.0 SECONDS (9.7-12.2) H 11/01/16 06:11 INR 1.2 11/01/16 06:11 APTT 34 SECONDS (21-34) 10/28/16 14:51 - Constitutional Appears: Well, No Acute Distress - Extremities Exam Additional comments: sensation intact dressing intact, small amount drainage on dressing no erythema thigh swollen but soft calves soft Nt Neg homans - Neurological Exam Neurological Exam: Alert, Awake, Oriented x3 Neuro motor strength exam: Right Lower Extremity: 5 Assessment and Plan (1) Fracture of femoral neck, right Assessment & Plan: POD#1 s/p right THR for femoral neck fracture -PT/OT -monitor labs, drop in h/h expected due to fracture and surgery -ASA 81mg PO BID per Dr. Osborne for VTE proph -patient to restart plavix POD#1 -d/c planning -OOB, TTWB RLE -labs in am -ice -d/w Dr. 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
[2016-11-02 18:42] LABS: PTTLA- INCUB MIX CORRECTED
[2016-11-03] MEDS: Piperacill/Tazo 3.375gm in Dex 3.375 GM/50 ML BAG IVPB SCH ×3 (03:00→15:40)
[2016-11-03 07:05] LABS: BASO % 0.3 % (0.0-2.0); EOS % 0.2 % (0.0-4.0); HEMATOCRIT 26.5 % (34.0-47.0); LYMPH # 0.9 K/uL (1.0-4.3); LYMPH % 8.3 % (20.0-40.0); MEAN CELL VOLUME 89.9 fL (81.0-99.0); MEAN CORPUSCULAR HEMOGLOBIN 30.9 pg (27.0-31.0); MEAN CORPUSCULAR HGB CONC 34.4 g/dL (33.0-37.0); MEAN PLATELET VOLUME 10.4 fL (7.2-11.7); MONO # 1.2 K/uL (0.0-0.8); MONO % 11.7 % (0.0-10.0); PLATELET COUNT 168 K/uL (130-400); RED CELL DISTRIBUTION WIDTH 12.8 % (11.5-14.5); WHITE BLOOD COUNT 10.3 K/uL (4.8-10.8)
[2016-11-03 07:36] LABS: CHLORIDE 99 mmol/L (98-107); POTASSIUM 3.5 mmol/L (3.6-5.2); SODIUM 136 mmol/L (132-148)
[2016-11-03 07:38] LABS: ALB/GLOB RATIO 0.9 (1.0-2.1); AST/SGOT 24 U/L (14-36); BILIRUBIN,TOTAL 1.2 mg/dL (0.2-1.3); CARBON DIOXIDE 23 mmol/L (22-30); GFR AFRICAN-AMERICAN > 60; TOTAL PROTEIN 5.5 g/dL (6.3-8.3)
[2016-11-03 07:39] LABS: ALKALINE PHOSPHATASE 105 U/L (38-126); ALT/SGPT 19 U/L (9-52); BLOOD UREA NITROGEN 13 mg/dL (7-17); CALCIUM 7.8 mg/dl (8.6-10.4); GLUCOSE,RANDOM 111 mg/dL (65-105); MAGNESIUM 1.8 mg/dL (1.6-2.3)
--- NOTE | 2016-11-03 07:55 | CP.PCM.PN ---
Subjective - Date & Time of Evaluation Date of Evaluation: 11/03/16 Time of Evaluation: 07:51 - Subjective Subjective: Patient comfortable. Says hip pain is controlled. No nausea at this time. Objective - Vital Signs/Intake and Output Vital Signs (last 24 hours): Temp Pulse Resp BP Pulse Ox 98.0 F 80 20 102/50 L 95 11/03/16 05:59 11/03/16 05:59 11/03/16 05:59 11/03/16 05:59 11/02/16 23:10 Intake and Output: 11/03/16 11/03/16 06:59 18:59 Intake Total 470 Balance 470 - Medications Medications: Current Medications Aspirin (Ecotrin) 81 mg PO BID [facility] Last Admin: 11/02/16 18:23 Dose: 81 mg Clopidogrel Bisulfate (Plavix) 75 mg PO DAILY [facility] Last Admin: 11/02/16 14:34 Dose: 75 mg Diphenhydramine HCl (Benadryl) 25 mg IVP Q6H PRN PRN Reason: Itching / Pruritus Docusate Sodium (Colace) 100 mg PO BID [facility] Last Admin: 11/02/16 18:19 Dose: Not Given Enalapril Maleate (Vasotec) 10 mg PO DAILY [facility] Last Admin: 11/02/16 10:54 Dose: 10 mg Famotidine (Pepcid) 20 mg PO BID [facility] Last Admin: 11/02/16 18:23 Dose: 20 mg Piperacillin Sod/Tazobactam Sod (Zosyn 3.375 Gm Iv Premix) 3.375 gm in 50 mls @ 100 mls/hr IVPB Q6H [facility] Stop: 11/03/16 23:59 Last Admin: 11/03/16 03:00 Dose: 100 mls/hr Lactated Ringer's (Lactated Ringer's) 1,000 mls @ 75 mls/hr IV .[id number] [facility] Last Admin: 11/02/16 05:14 Dose: Not Given Insulin Human Regular (Novolin R) 0 unit SC ACHS [facility] PRN Reason: Protocol Last Admin: 11/02/16 22:10 Dose: Not Given Morphine Sulfate (Morphine) 2 mg IVP Q4H PRN PRN Reason: Pain, moderate (4-7) Last Admin: 11/03/16 05:53 Dose: 2 mg Ondansetron HCl (Zofran Inj) 4 mg IVP Q6H PRN PRN Reason: Nausea/Vomiting Last Admin: 11/02/16 17:01 Dose: 4 mg Oxycodone/Acetaminophen (Percocet 5/325 Mg Tab) 1 tab PO Q4 PRN PRN Reason: Pain, Mild (1-3) Stop: 11/04/16 15:29 Rosuvastatin Calcium (Crestor) 40 mg PO HS [facility] Last Admin: 11/02/16 22:33 Dose: 40 mg - Labs Labs: 11/03/16 06:53 11/03/16 06:53 PT 13.0 SECONDS (9.7-12.2) H 11/01/16 06:11 INR 1.2 11/01/16 06:11 APTT 34 SECONDS (21-34) 10/28/16 14:51 - Constitutional Appears: Well, No Acute Distress - Extremities Exam Additional comments: RLE: dressing intact, small amount drainage. +ROM ankle/toes, +dp/pt pulses, calves soft NT neg homans toes warm, good cap refill, no peripheral swelling, no erythema, sensation intact Assessment and Plan (1) Fracture of femoral neck, right Assessment & Plan: POD#2 s/p right THR (anterior approach) for fx TTWB PT/OT encourage OOB IS d/c planning VTE proph with aspirin per Dr. Osborne plavix can be restarted POD#1 orthopedically stable for d/c to rehab dressing right hip must be changed on Tuesday 11/07 and dry sterile dressing applied anterior approach, no posterior hip precautions indicated post operative xrays reviewed and show acceptable position of prosthesis d/w Dr. Osborne, agrees with above, f/u in office in 1-2 weeks call for appointment [phone] Status: Acute (2) Degenerative joint disease of left hip Status: Chronic
[2016-11-03 08:22] LABS: NEUTROPHIL 78 % (50-75); TOTAL CELLS COUNTED 100
[2016-11-03] MEDS: (Novolin R) Insulin Human Regular 100 units/ml vial SC SCH ×3 (08:28→17:07)
--- NOTE | 2016-11-03 10:17 | RAD ---
PROCEDURE: Intraoperative Fluoroscopy. HISTORY: RIGHT HIP FX. TOTAL REPLACEMENT. FINDINGS: Fluoroscopic assistance was provided. 16.3 seconds fluoroscopy time utilized during this procedure. Radiation dose = 0.0785 mGy . Please refer to the operative report for additional details
--- NOTE | 2016-11-03 10:42 | CP.PCM.PN ---
Subjective - Date & Time of Evaluation Date of Evaluation: 11/03/16 Time of Evaluation: 10:42 - Subjective Subjective: Patient was seen and examined at bedside in no acute distress. Patient was OOB and sitting in chair. She reports still having pain in her right lower extremity. Pain medication has helped slightly. As per her daughter, patient is not eating or hydrating well. She denies having chest pain, abdominal pain, nausea, vomiting, and fevers. Objective - Vital Signs/Intake and Output Vital Signs (last 24 hours): Temp Pulse Resp BP Pulse Ox 98.4 F 87 20 96/57 L 98 11/03/16 07:00 11/03/16 07:00 11/03/16 07:00 11/03/16 07:00 11/03/16 07:00 Intake and Output: 11/03/16 11/03/16 06:59 18:59 Intake Total 470 Balance 470 - Medications Medications: Current Medications Aspirin (Ecotrin) 81 mg PO BID [facility] Last Admin: 11/03/16 10:09 Dose: 81 mg Clopidogrel Bisulfate (Plavix) 75 mg PO DAILY [facility] Last Admin: 11/03/16 10:08 Dose: 75 mg Diphenhydramine HCl (Benadryl) 25 mg IVP Q6H PRN PRN Reason: Itching / Pruritus Docusate Sodium (Colace) 100 mg PO BID [facility] Last Admin: 11/03/16 10:09 Dose: 100 mg Enalapril Maleate (Vasotec) 10 mg PO DAILY [facility] Last Admin: 11/02/16 10:54 Dose: 10 mg Famotidine (Pepcid) 20 mg PO BID [facility] Last Admin: 11/03/16 10:08 Dose: 20 mg Piperacillin Sod/Tazobactam Sod (Zosyn 3.375 Gm Iv Premix) 3.375 gm in 50 mls @ 100 mls/hr IVPB Q6H [facility] Stop: 11/03/16 23:59 Last Admin: 11/03/16 08:04 Dose: 100 mls/hr Lactated Ringer's (Lactated Ringer's) 1,000 mls @ 75 mls/hr IV .[id number] [facility] Last Admin: 11/02/16 05:14 Dose: Not Given Insulin Human Regular (Novolin R) 0 unit SC ACHS [facility] PRN Reason: Protocol Last Admin: 11/03/16 08:28 Dose: Not Given Morphine Sulfate (Morphine) 2 mg IVP Q4H PRN PRN Reason: Pain, moderate (4-7) Last Admin: 11/03/16 05:53 Dose: 2 mg Ondansetron HCl (Zofran Inj) 4 mg IVP Q6H PRN PRN Reason: Nausea/Vomiting Last Admin: 11/02/16 17:01 Dose: 4 mg Oxycodone/Acetaminophen (Percocet 5/325 Mg Tab) 1 tab PO Q4 PRN PRN Reason: Pain, Mild (1-3) Stop: 11/04/16 15:29 Rosuvastatin Calcium (Crestor) 40 mg PO HS [facility] Last Admin: 11/02/16 22:33 Dose: 40 mg - Labs Labs: 11/03/16 06:53 11/03/16 06:53 PT 13.0 SECONDS (9.7-12.2) H 11/01/16 06:11 INR 1.2 11/01/16 06:11 APTT 34 SECONDS (21-34) 10/28/16 14:51 - Head Exam Head Exam: ATRAUMATIC, NORMAL INSPECTION - Eye Exam Eye Exam: EOMI, Normal appearance - ENT Exam ENT Exam: Mucous Membranes Dry - Respiratory Exam Respiratory Exam: Clear to Ausculation Bilateral, NORMAL BREATHING PATTERN. absent: Rhonchi, Wheezes, Respiratory Distress - Cardiovascular Exam Cardiovascular Exam: REGULAR RHYTHM, +S1, +S2 - GI/Abdominal Exam GI & Abdominal Exam: Soft, Normal Bowel Sounds. absent: Distended, Tenderness - Extremities Exam Extremities Exam: Tenderness (RLE- s/p THR). absent: Pedal Edema - Neurological Exam Neurological Exam: Alert, Awake, Oriented x3 - Psychiatric Exam Psychiatric exam: Normal Affect, Normal Mood - Skin Skin Exam: Dry, Intact, Normal Color, Warm Assessment and Plan (1) Platelet dysfunction Assessment & Plan: 70 year old female with past medical history of DM, HTN, HLD, and arthritis, s/ p right total hip replacement (POD#2). Patient has a platelet dysfunction secondary to shelter use of Plavix. Platelet function test results were 208. Continue antiplatelet therapy. Status: Acute (2) Anemia Assessment & Plan: s/p right total hip replacement. Patient is receiving 1 unit of PRBC today. Continue to monitor H/H. Status: Acute
--- NOTE | 2016-11-03 13:30 | CP.PCM.PN ---
Subjective - Date & Time of Evaluation Date of Evaluation: 11/03/16 Time of Evaluation: 10:00 - Subjective Subjective: REPEAT CULTURES NEG Objective - Vital Signs/Intake and Output Vital Signs (last 24 hours): Temp Pulse Resp BP Pulse Ox 98.4 F 87 20 96/57 L 98 11/03/16 07:00 11/03/16 07:00 11/03/16 07:00 11/03/16 07:00 11/03/16 07:00 Intake and Output: 11/03/16 11/03/16 06:59 18:59 Intake Total 470 Balance 470 - Medications Medications: Current Medications Aspirin (Ecotrin) 81 mg PO BID [facility] Last Admin: 11/03/16 10:09 Dose: 81 mg Clopidogrel Bisulfate (Plavix) 75 mg PO DAILY [facility] Last Admin: 11/03/16 10:08 Dose: 75 mg Diphenhydramine HCl (Benadryl) 25 mg IVP Q6H PRN PRN Reason: Itching / Pruritus Docusate Sodium (Colace) 100 mg PO BID [facility] Last Admin: 11/03/16 10:09 Dose: 100 mg Enalapril Maleate (Vasotec) 10 mg PO DAILY [facility] Last Admin: 11/03/16 10:00 Dose: Not Given Famotidine (Pepcid) 20 mg PO BID [facility] Last Admin: 11/03/16 10:08 Dose: 20 mg Piperacillin Sod/Tazobactam Sod (Zosyn 3.375 Gm Iv Premix) 3.375 gm in 50 mls @ 100 mls/hr IVPB Q6H [facility] Stop: 11/03/16 23:59 Last Admin: 11/03/16 08:04 Dose: 100 mls/hr Lactated Ringer's (Lactated Ringer's) 1,000 mls @ 75 mls/hr IV .[id number] [facility] Last Admin: 11/02/16 05:14 Dose: Not Given Insulin Human Regular (Novolin R) 0 unit SC ACHS [facility] PRN Reason: Protocol Last Admin: 11/03/16 08:28 Dose: Not Given Morphine Sulfate (Morphine) 2 mg IVP Q4H PRN PRN Reason: Pain, moderate (4-7) Last Admin: 11/03/16 05:53 Dose: 2 mg Ondansetron HCl (Zofran Inj) 4 mg IVP Q6H PRN PRN Reason: Nausea/Vomiting Last Admin: 11/02/16 17:01 Dose: 4 mg Oxycodone/Acetaminophen (Percocet 5/325 Mg Tab) 1 tab PO Q4 PRN PRN Reason: Pain, Mild (1-3) Stop: 11/04/16 15:29 Rosuvastatin Calcium (Crestor) 40 mg PO HS [facility] Last Admin: 11/02/16 22:33 Dose: 40 mg - Labs Labs: 11/03/16 06:53 11/03/16 06:53 PT 13.0 SECONDS (9.7-12.2) H 11/01/16 06:11 INR 1.2 11/01/16 06:11 APTT 34 SECONDS (21-34) 10/28/16 14:51 - Constitutional Appears: Non-toxic - Head Exam Head Exam: NORMOCEPHALIC - Eye Exam Eye Exam: PERRL - ENT Exam ENT Exam: Mucous Membranes Dry - Neck Exam Neck Exam: absent: Lymphadenopathy - Respiratory Exam Respiratory Exam: Decreased Breath Sounds - Cardiovascular Exam Cardiovascular Exam: REGULAR RHYTHM - GI/Abdominal Exam GI & Abdominal Exam: Distended, Soft Assessment and Plan (1) Diabetes Status: Acute (2) Fracture of femoral neck, right Status: Acute (3) HTN (hypertension) Status: Acute (4) Renal insufficiency Status: Acute (5) Status post fall Status: Acute
--- NOTE | 2016-11-03 13:55 | CP.PCM.DIS ---
Provider - Provider Date of Admission: 10/28/16 15:09 Attending physician: Amy Romero DO Consults: Dr. Nae Osborne Time Spent in preparation of Discharge (in minutes): 35 Hospital Course - Lab Results Lab Results: Micro Results 11/01/16 03:02 Urine,Catheterized Urine Culture - Final No Growth (<1,000 CFU/ML) 10/28/16 14:27 Urine Urine Culture - Final Beta Hemolytic Strep Group B Most Recent Lab Values WBC 10.3 K/uL (4.8-10.8) 11/03/16 06:53 RBC 2.95 Mil/uL (3.80-5.20) L 11/03/16 06:53 Hgb 9.1 g/dL (11.0-16.0) L 11/03/16 06:53 Hct 26.5 % (34.0-47.0) L 11/03/16 06:53 MCV 89.9 fL (81.0-99.0) 11/03/16 06:53 MCH 30.9 pg (27.0-31.0) 11/03/16 06:53 MCHC 34.4 g/dL (33.0-37.0) 11/03/16 06:53 RDW 12.8 % (11.5-14.5) 11/03/16 06:53 Plt Count 168 K/uL (130-400) 11/03/16 06:53 MPV 10.4 fL (7.2-11.7) 11/03/16 06:53 Neut % (Auto) 79.5 % (50.0-75.0) H 11/03/16 06:53 Lymph % (Auto) 8.3 % (20.0-40.0) L 11/03/16 06:53 [place] % (Auto) 11.7 % (0.0-10.0) H 11/03/16 06:53 Eos % (Auto) 0.2 % (0.0-4.0) 11/03/16 06:53 Baso % (Auto) 0.3 % (0.0-2.0) 11/03/16 06:53 Neut # 8.2 K/uL (1.8-7.0) H 11/03/16 06:53 Lymph # 0.9 K/uL (1.0-4.3) L 11/03/16 06:53 [place] # 1.2 K/uL (0.0-0.8) H 11/03/16 06:53 Eos # 0.0 K/uL (0.0-0.7) 11/03/16 06:53 Baso # 0.0 K/uL (0.0-0.2) 11/03/16 06:53 Neutrophils % (Manual) 78 % (50-75) H 11/03/16 06:53 Band Neutrophils % 1 % (0-2) 11/03/16 06:53 Lymphocytes % (Manual) 11 % (20-40) L 11/03/16 06:53 Monocytes % (Manual) 10 % (0-10) 11/03/16 06:53 Platelet Estimate Normal (NORMAL) 11/03/16 06:53 RBC Morphology Normal 11/03/16 06:53 PT 13.0 SECONDS (9.7-12.2) H 11/01/16 06:11 INR 1.2 11/01/16 06:11 APTT 34 SECONDS (21-34) 10/28/16 14:51 Plt Function Assay 208 K/uL 10/30/16 13:51 Sodium 136 mmol/L (132-148) 11/03/16 06:53 Potassium 3.5 mmol/L (3.6-5.2) L 11/03/16 06:53 Chloride 99 mmol/L (98-107) 11/03/16 06:53 Carbon Dioxide 23 mmol/L (22-30) 11/03/16 06:53 Anion Gap 18 (10-20) 11/03/16 06:53 BUN 13 mg/dL (7-17) 11/03/16 06:53 Creatinine 0.5 MG/DL (0.7-1.2) L 11/03/16 06:53 Est GFR ( Amer) > 60 11/03/16 06:53 Est GFR (Non-Af Amer) > 60 11/03/16 06:53 POC Glucose (mg/dL) 164 mg/dL (65-110) H 11/03/16 11:30 Random Glucose 111 mg/dL (65-105) H 11/03/16 06:53 Hemoglobin A1c 7.5 % (4.2-6.5) H 10/29/16 06:06 Calcium 7.8 mg/dl (8.6-10.4) L 11/03/16 06:53 Phosphorus 3.5 mg/dL (2.5-4.5) 10/30/16 06:55 Magnesium 1.8 mg/dL (1.6-2.3) 11/03/16 06:53 Total Bilirubin 1.2 mg/dL (0.2-1.3) 11/03/16 06:53 AST 24 U/L (14-36) 11/03/16 06:53 ALT 19 U/L (9-52) 11/03/16 06:53 Alkaline Phosphatase 105 U/L (38-126) 11/03/16 06:53 Total Creatine Kinase 306 U/L (30-135) H 11/02/16 18:26 CK-MB (Mass) 1.06 ng/mL (0.0-3.38) 11/02/16 18:26 Troponin I, Quant 0.0130 ng/mL (0.00-0.120) 11/02/16 18:26 Total Protein 5.5 g/dL (6.3-8.3) L 11/03/16 06:53 Albumin 2.6 g/dL (3.5-5.0) L D 11/03/16 06:53 Globulin 2.9 gm/dL (2.2-3.9) 11/03/16 06:53 Albumin/Globulin Ratio 0.9 (1.0-2.1) L 11/03/16 06:53 Triglycerides 102 mg/dL (0-149) 10/29/16 06:06 Cholesterol 158 mg/dL (0-199) 10/29/16 06:06 LDL Cholesterol Direct 112 mg/dL (0-129) 10/29/16 06:06 HDL Cholesterol 37 mg/dL (30-70) 10/29/16 06:06 Free T4 1.63 ng/dL (0.78-2.19) 10/30/16 06:55 TSH 3rd Generation 0.29 mIU/L (0.46-4.68) L 10/30/16 06:55 Urine Color Straw (YELLOW) 10/28/16 15:53 Urine Clarity Clear (Clear) 10/28/16 15:53 Urine pH 6.0 (5.0-8.0) 10/28/16 15:53 Ur Specific [place] 1.009 (1.003-1.030) 10/28/16 15:53 Urine Protein Negative mg/dL (NEGATIVE) 10/28/16 15:53 Urine Glucose (UA) 3+ mg/dL (Normal) H 10/28/16 15:53 Urine Ketones Negative mg/dL (NEGATIVE) 10/28/16 15:53 Urine Blood Negative (NEGATIVE) 10/28/16 15:53 Urine Nitrate Negative (NEGATIVE) 10/28/16 15:53 Urine Bilirubin Negative (NEGATIVE) 10/28/16 15:53 Urine Urobilinogen Normal mg/dL (0.2-1.0) 10/28/16 15:53 Ur Leukocyte Esterase Neg Marie/uL (Negative) 10/28/16 15:53 Urine WBC (Auto) < 1 /hpf (0-5) 10/28/16 15:53 Urine RBC (Auto) < 1 /hpf (0-3) 10/28/16 15:53 Ur Squamous Epith Cells < 1 /hpf (0-5) 10/28/16 15:53 Blood Type B POSITIVE 11/01/16 06:11 Antibody Screen Negative 11/01/16 06:11 - Hospital Course Hospital Course: 70F [place] female with PMHx of DM, HTN, high cholesterol presents after fall at home last night. Patient fell last night around 7:30pm last night. She was on the phone with her daughter when she fell on a step. Patient was able to get up and has since ambulated with a lot of pain. Pain on arrival was reportedly 10 out of 10. Now 8 out 10 after pain medications given in the ED. Patient denies LOC, hitting her head, dizziness. No numbness or tingling. She denies palpitations, headache, SOB. Admits to similar mechanical fall in January 2016. However, she had not fractures that time. Patient reports chest pain that is "chronic". As per daughters at bedside, patient follows with cleaning machine operator Dr. Clark as outpatient. last plavix was prior to admission 10/28 admission Urine positive for glucose, negative for leukocyte esterase 10/29 cleared for surgery, patient did not ask for pain medication overnight 10/30 patient was supposed to have surgery today but was found to have a UTI 10/31 patient is stable, Ortho taking patient to OR tomorrow. heparin held overnight. NPO past midnight 11/01 patient had procedure done. tolerated procedure well. patient resting at bedside. Pain medication ordered. diet ordered. 11/02 patient restarted on plavix. patient not asking for pain medication. patient encouraged to ask for pain medication if necessary. Patient did not like the food. ensure ordered for diet supplement 11/03 patient not tolerating diet, complains of nausea. patient had Incentive spirometer brought to bedside. instructed for use 10 times an hour to prevent atelectasis and pneumonia. Patient did not have bowel movement but feels like she needs to go at times. Patient had colace ordered. Patient admits to feeling gassy. Patient out of bed to chair today. clear for discharge by Ortho. Patient given one unit PRBC prior to discharge Imaging 10/28/16 Right femur min 2 views XR: intertrochanteric fracture of right proximal femur 10/28/16 Right tibia fibula XR: degenerative changes 10/28 Right hip without contrast: intertrochanteric fracture through right proximal femur: fracture deformity within adjacent right greater trochanter 10/28 biapical pleural thickening with upper lobe granulomatous changes. mild venous congestion, degenerative changes in bilateral shoulders, spine, mild productive changes at left proximal humerus 10/29 EKG NSR @ 73 bpm 11/01 Hip min 2 V w/ Pelvis on Right: post op status satisfactory - Date & Time of H&P Date of H&P: 11/03/16 Time of H&P: 13:55 Discharge Exam - Head Exam Head Exam: NORMOCEPHALIC - Eye Exam Eye Exam: EOMI, Normal appearance - ENT Exam ENT Exam: Mucous Membranes Moist - Neck Exam Neck exam: Full Rom - Respiratory Exam Respiratory Exam: UNREMARKABLE. absent: Accessory Muscle Use, Respiratory Distress - Cardiovascular Exam Cardiovascular Exam: REGULAR RHYTHM. absent: Bradycardia, Tachycardia - GI/Abdominal Exam GI & Abdominal Exam: Normal Bowel Sounds - Extremities Exam Extremities exam: full ROM - Neurological Exam Neurological exam: Alert, Oriented x3 - Psychiatric Exam Psychiatric exam: Normal Affect, Normal Mood - Skin Skin Exam: Dry, Intact, Normal Color, Warm Discharge Plan - Follow Up Plan Condition: STABLE Disposition: REHAB FACILITY/REHAB UNIT Additional Instructions: patient to be discharged to rehab after 1 unit of PRBC transfusion follow up with orthopedic surgeon follow up with primary care doctor after discharge from rehab continue physical therapy orthopedically stable for d/c to rehab dressing right hip must be changed on Tuesday 11/07 and dry sterile dressing applied anterior approach, no posterior hip precautions indicated post operative xrays reviewed and show acceptable position of prosthesis d/w Dr. Osborne, agrees with above, f/u in office in 1-2 weeks call for appointment [phone]
--- NOTE | 2016-11-03 14:18 | CARD ---
APPROVED REPORT EKG Measurement Heart [id number] <Conclusion> Normal sinus rhythm Low voltage QRS ST & T wave abnormality, consider anterolateral ischemia Abnormal ECG
[2016-11-03 14:33] VITALS: O2SAT 99
[2016-11-03 15:25] VITALS: RESP 20
[2016-11-03 17:44] VITALS: BP 104/60; PULSE 87; TEMP 98.2
[2016-11-03 20:17] LABS: BASO % 0.4 % (0.0-2.0); EOS % 0.2 % (0.0-4.0); HEMATOCRIT 31.3 % (34.0-47.0); LYMPH # 1.4 K/uL (1.0-4.3); LYMPH % 11.2 % (20.0-40.0); MEAN CORPUSCULAR HEMOGLOBIN 29.5 pg (27.0-31.0); MEAN CORPUSCULAR HGB CONC 33.9 g/dL (33.0-37.0); MONO # 1.3 K/uL (0.0-0.8); MONO % 10.8 % (0.0-10.0); NRBC % 0.1 % (0.0-2.0); RED CELL DISTRIBUTION WIDTH 13.6 % (11.5-14.5); WHITE BLOOD COUNT 12.4 K/uL (4.8-10.8)
== END 2016-11-03 21:20 | DRG 470 ==
LOC: C.ER 13:10 → C.9E 15:09 → C.6T 16:36
PROVIDERS: ADMIT Family Medicine; ATTEND Hospitalist
PROC: 0QU607Z Supplement Right Upper Femur with Autologous Tissue Substitute, Open Approach (ICD-10-PCS; 2016-11-01)
PROC: 0QS60ZZ Reposition Right Upper Femur, Open Approach (ICD-10-PCS; 2016-11-01)
PROC: 0LNJ0ZZ Release Right Hip Tendon, Open Approach (ICD-10-PCS; 2016-11-01)
PROC: 0SR903Z Replacement of Right Hip Joint with Ceramic Synthetic Substitute, Open Approach (ICD-10-PCS; principal; 2016-11-01 11:35)
DX: S72.141A Displaced intertrochanteric fracture of right femur, initial encounter for closed fracture (principal); D69.1 Qualitative platelet defects; N39.0 Urinary tract infection, site not specified; S72.091A Other fracture of head and neck of right femur, initial encounter for closed fracture; F17.210 Nicotine dependence, cigarettes, uncomplicated; W01.0XXA Fall on same level from slipping, tripping and stumbling without subsequent striking against object, initial encounter; M16.11 Unilateral primary osteoarthritis, right hip; M85.80 Other specified disorders of bone density and structure, unspecified site; E11.9 Type 2 diabetes mellitus without complications; E78.00 Pure hypercholesterolemia, unspecified; E86.0 Dehydration; G89.29 Other chronic pain; I10 Essential (primary) hypertension; I34.0 Nonrheumatic mitral (valve) insufficiency; I73.9 Peripheral vascular disease, unspecified; N28.9 Disorder of kidney and ureter, unspecified; Y92.009 Unspecified place in unspecified non-institutional (private) residence as the place of occurrence of the external cause; Z79.01 Long term (current) use of anticoagulants; Z79.82 Long term (current) use of aspirin; Z91.81 History of falling